=== PATIENT | male | born 1970 | race Caucasian/White ===

== ENCOUNTER 2019-03-16 09:56 | Inpatient (IN) | payer OTHER ==
[2019-03-16 10:53] VITALS: BMI 22.1
--- NOTE | 2019-03-16 11:10 | HP ---
CIWA Score Nausea/Vomitin Muscle Tremors: 2 Anxiety: 2 Agitation: 2 Paroxysmal Sweats: 1-Minimal Palms Moist Orientation: 0-Oriented Tacttile Disturbances: 1-Very Mild Itch/Numbness Auditory Disturbances: 1-Very Mild Visual Disturbances: 0-None Headache: 2-Mild CIWA-Ar Total Score: 13 - Admission Criteria OASAS Guidelines: Admission for Medically Managed Detox: Requires at least one of the followin. CIWA greater than 12 2. Seizures within the past 24 hours 3. Delirium tremens within the past 24 hours 4. Hallucinations within the past 24 hours 5. Acute intervention needed for co occurring medical disorder 6. Acute intervention needed for co occurring psychiatric disorder 7. Severe withdrawal that cannot be handled at a lower level of care (continued vomiting, continued diarrhea, abnormal vital signs) requiring intravenous medication and/or fluids 8. Admission ROS BHS - HPI Chief Complaint: i need help to stop drinling alcohol,cocaine,heroin abused,on mmtp 70 mgs/day, last medicated today Allergies/Adverse Reactions: Allergies Allergy/AdvReac Type Severity Reaction Status Date / Time No Known Allergies Allergy Verified 03/16/19 10:12 History of Present Illness: this 48 years old male with alcohol,cocaine and heroin abused,mmtp 70 mgs/day, last medicated today, syncope alcohol related last detox 12/17 ,did not recall the facility but keep relapsing hypertension nicotine dependence 1 pack,requesting nicotine patch and gum longest sobriety 10 years plan to return to [facility] after detox also has asthma asthma,chf,cad,hypercholesterolemia - Ebola screening Have you traveled outside of the country in the last 21 days: No Have you had contact with anyone from an Ebola affected area: No Do you have a fever: No - Review of Systems Constitutional: Loss of Appetite, Malaise, Night Sweats, Changes in sleep, Weakness EENT: reports: Nose Congestion Respiratory: reports: No Symptoms reported Cardiac: reports: No Symptoms Reported GI: reports: Nausea, Poor Appetite, Abdominal cramping : reports: No Symptoms Reported Musculoskeletal: reports: Back Pain, Muscle Pain Integumentary: reports: Dryness Neuro: reports: Headache, Tremors Endocrine: reports: No Symptoms Reported Hematology: reports: No Symptoms Reported Psychiatric: reports: No Sypmtoms Reported, Judgement Intact, Mood/Affect Appropiate, Orientated x3 Other Systems: Reviewed and Negative Patient History - Patient Medical History Hx Anemia: No Hx Asthma: Yes (on albuterol inhaler) Hx Chronic Obstructive Pulmonary Disease (COPD): No Hx Cancer: No Hx Cardiac Disorders: No Hx Congestive Heart Failure: Yes (cad) Hx Hypertension: Yes (on med) Hx Hypercholesterolemia: Yes (on med) Hx Pacemaker: No HX Cerebrovascular Accident: No Hx Seizures: No Hx Dementia: No Hx Diabetes: No Hx Gastrointestinal Disorders: No Hx Liver Disease: No Hx Genitourinary Disorders: No Hx Sexually Transmitted Disorders: No Hx Renal Disease (ESRD): No Hx Thyroid Disease: No Hx Human Immunodeficiency Virus (HIV): No (last 03/17 negtive) Hx Hepatitis C: No Hx Depression: No Hx Suicide Attempt: No Hx Bipolar Disorder: No Hx Schizophrenia: No Other Medical History: no suicidal,no homicidal - Patient Surgical History Past Surgical History: No - PPD History Previous Implant?: Yes Documented Results: Negative w/o proof Implanted On Prior [facility] Admission?: No PPD to be Administered?: Yes - Smoking Cessation Smoking history: Current every day smoker Have you smoked in the past 12 months: Yes Aproximately how many cigarettes per day: 10 Cigars Per Day: 0 Hx Chewing Tobacco Use: No Initiated information on smoking cessation: Yes 'Breaking Loose' booklet given: 03/16/19 - Substance & Tx. History Hx Alcohol Use: Yes Hx Substance Use: Yes Substance Use Type: Alcohol, Cocaine, Heroin Hx Substance Use Treatment: Yes (12/17 unknown facility) - Substances abused Alcohol Frequency: Daily Amount used: 2 pints of vodka Age of first use: 14 Date of last use: 03/15/19 Crack Substance route: Smoking Frequency: Daily Amount used: $200 Age of first use: 14 Date of last use: 03/15/19 Heroin Substance route: Inhalation Frequency: Daily Amount used: $200 Age of first use: 14 Date of last use: 03/15/19 Family Disease History - Family Disease History Family Disease History: Other: Father (dsa,alcohol) Admission Physical Exam BHS - Vital Signs Vital Signs: Vital Signs - 24 hr 03/16/19 10:29 Temperature 97 F L Pulse Rate 60 Respiratory 18 Rate Blood Pressure 134/81 - Physical General Appearance: Yes: Moderate Distress, Tremorous, Irritable, Sweating, Anxious HEENTM: Yes: Normal ENT Inspection, KANU, Pharynx Normal Respiratory: Yes: Lungs Clear, Normal Breath Sounds, No Respiratory Distress Neck: Yes: Within Normal Limits, Supple, Trachea in good position Breast: Yes: Within Normal Limits Cardiology: Yes: Within Normal Limits, Regular Rhythm, Regular Rate, S1, S2 Abdominal: Yes: Normal Bowel Sounds, Non Tender, Flat, Soft Genitourinary: Yes: Within Normal Limits Back: Yes: Muscle Spasm Extremities: Yes: Within Normal Limits, Normal Range of Motion, Tremors Neurological: Yes: utility [employer] II-XII NML intact, Fully Oriented, Alert, Motor Strength 5/5 Integumentary: Yes: Dry Lymphatic: Yes: Within Normal Limits - Diagnostic (1) Alcohol dependence with uncomplicated withdrawal Current Visit: Yes Status: Acute (2) Cocaine dependence Current Visit: Yes Status: Acute (3) Heroin abuse Current Visit: Yes Status: Acute (4) Methadone maintenance therapy patient Current Visit: Yes Status: Acute (5) Nicotine dependence Current Visit: Yes Status: Acute (6) Essential hypertension Current Visit: Yes Status: Acute (7) Syncope Current Visit: Yes Status: Acute Cleared for Admission S - Detox or Rehab [facility] Level of Care: Medically Managed Detox Regimen/Protocol: Librium Breathalyzer - Breathalyzer Breathalyzer: 0 Urine Drug Screen - Test Device Lot number: [id number] Expiration date: 02/26/20 - Control Is test valid?: Yes - Results Drug screen NEGATIVE: No Urine drug screen results: PRATIMA-Cocaine, MOP-Opiates, MTD-Methadone Inpatient Rehab Admission - Rehab Decision to Admit Inpatient rehab admission?: No
[2019-03-16] MEDS ORDERED: chlordiazePOXIDE HCL 25 MG CAPSULE PO PRN (11:19)
[2019-03-16] MEDS ORDERED: BISMUTH SUBSALICYLATE 262 MG/15 ML BTL PO PRN (11:19)
[2019-03-16] MEDS ORDERED: hydrOXYzine PAMOATE 25 MG CAPSULE (FP) PO PRN (11:19)
[2019-03-16] MEDS ORDERED: ACETAMINOPHEN 325 MG TABLET (FP) PO PRN ×2 (11:19)
[2019-03-16] MEDS ORDERED: IBUPROFEN 400 MG TABLET (FP) PO PRN (11:19)
[2019-03-16] MEDS ORDERED: MAGNESIUM HYDROX 2400MG/30ML ORAL SUSPENSION 30 ML CUP PO PRN (11:19)
[2019-03-16] MEDS ORDERED: METHOCARBAMOL 500 MG TABLET PO PRN (11:19)
[2019-03-16] MEDS ORDERED: NICOTINE POLACRILEX 2 MG GUM BUC PRN (11:19)
[2019-03-16] MEDS ORDERED: MAG HYDROX/AL HYDROX/SIMETH 30 ML UNIT-DOSE CUP PO PRN (11:19)
[2019-03-16] MEDS ORDERED: MENTHOL/PHENOL 1 EACH UD MM PRN (11:19)
[2019-03-16] MEDS ORDERED: MAGNESIUM CITRATE 300 ML BOTTLE PO PRN (11:19)
[2019-03-16] MEDS ORDERED: ALBUTEROL SO4 8 GM HFA INHALER IH PRN (11:23)
[2019-03-16] MEDS: NICOTINE 21 MG/24 HOURS TOPICAL PATCH TD SCH (12:33)
[2019-03-16] MEDS: FUROSEMIDE 40 MG TABLET (FP) PO SCH (15:20)
[2019-03-16 16:33] LABS: HEMATOCRIT 47.5 % (35.4-49); HEMOGLOBIN 15.3 GM/dL (11.7-16.9); MCH 30.2 pg (25.7-33.7); MCHC 32.1 g/dl (32.0-35.9); MEAN CELL VOLUME 94.1 fl (80-96); MEAN PLT VOLUME 10.1 fl (7.5-11.1); PLATELET COUNT 248 K/MM3 (134-434); RBC 5.05 M/mm3 (4.00-5.60); RDW 15.1 % (11.9-15.9); WHITE BLOOD COUNT 10.8 K/mm3 (4.0-10.0)
[2019-03-16 16:50] LABS: ALBUMIN 3.5 g/dl (3.4-5.0); ALK PHOS 161 U/L (45-117); ANION GAP 6 MMOL/L (8-16); BILIRUBIN,TOTAL 0.3 mg/dL (0.2-1); BLOOD UREA NITROGEN 29 mg/dL (7-18); CALCIUM 9.5 mg/dL (8.5-10.1); CHLORIDE 100 mmol/L (98-107); CO2 34 mmol/L (21-32); CREATININE 1.3 mg/dL (0.55-1.3); GLUCOSE,RANDOM 187 mg/dL (74-106); POTASSIUM 3.3 mmol/L (3.5-5.1); SGOT/AST 24 U/L (15-37); SGPT/ALT 33 U/L (13-61); SODIUM 140 mmol/L (136-145); TOT PROT 7.2 g/dl (6.4-8.2)
[2019-03-16 17:13] LABS: URINE APPEARANCE CLEAR; URINE BILIRUBIN NEGATIVE (NEGATIVE); URINE COLOR YELLOW; URINE GLUCOSE (UA) NEGATIVE (NEGATIVE); URINE KETONE NEGATIVE (NEGATIVE); URINE LEUK ESTERASE NEGATIVE (NEGATIVE); URINE NITRITE NEGATIVE (NEGATIVE); URINE PROTEIN NEGATIVE (NEGATIVE); URINE UROBILINOGEN 0.2 mg/dL (0.2-1.0)
[2019-03-16 17:19] LABS: SICKLE CELL SCREEN NEGATIVE (NEGATIVE)
--- NOTE | 2019-03-16 17:33 | PN ---
[facility] Progress Note Note: Vital Signs Temperature 98.1 F 03/16/19 17:13 Pulse Rate 57 L 03/16/19 17:13 Respiratory Rate 18 03/16/19 17:13 Blood Pressure 147/56 L 03/16/19 17:13 O2 Sat by Pulse Oximetry (%) Laboratory Last Values WBC 10.8 K/mm3 (4.0-10.0) H 03/16/19 11:30 RBC 5.05 M/mm3 (4.00-5.60) 03/16/19 11:30 Hgb 15.3 GM/dL (11.7-16.9) 03/16/19 11:30 Hct 47.5 % (35.4-49) 03/16/19 11:30 MCV 94.1 fl (80-96) 03/16/19 11:30 MCH 30.2 pg (25.7-33.7) 03/16/19 11:30 MCHC 32.1 g/dl (32.0-35.9) 03/16/19 11:30 RDW 15.1 % (11.9-15.9) 03/16/19 11:30 Plt Count 248 K/MM3 (134-434) 03/16/19 11:30 MPV 10.1 fl (7.5-11.1) 03/16/19 11:30 Sickle Cell Screen Negative (NEGATIVE) 03/16/19 11:30 Sodium 140 mmol/L (136-145) 03/16/19 11:30 Potassium 3.3 mmol/L (3.5-5.1) L 03/16/19 11:30 Chloride 100 mmol/L (98-107) 03/16/19 11:30 Carbon Dioxide 34 mmol/L (21-32) H 03/16/19 11:30 Anion Gap 6 MMOL/L (8-16) L 03/16/19 11:30 BUN 29 mg/dL (7-18) H 03/16/19 11:30 Creatinine 1.3 mg/dL (0.55-1.3) 03/16/19 11:30 Creat Clearance w eGFR 58.67 (>60) 03/16/19 11:30 Random Glucose 187 mg/dL (74-106) H 03/16/19 11:30 Calcium 9.5 mg/dL (8.5-10.1) 03/16/19 11:30 Total Bilirubin 0.3 mg/dL (0.2-1) 03/16/19 11:30 AST 24 U/L (15-37) 03/16/19 11:30 ALT 33 U/L (13-61) 03/16/19 11:30 Alkaline Phosphatase 161 U/L (45-117) H 03/16/19 11:30 Total Protein 7.2 g/dl (6.4-8.2) 03/16/19 11:30 Albumin 3.5 g/dl (3.4-5.0) 03/16/19 11:30 Urine Color Yellow 03/16/19 12:54 Urine Appearance Clear 03/16/19 12:54 Urine pH 5.0 (5.0-8.0) 03/16/19 12:54 Ur Specific [place] 1.011 (1.010-1.035) 03/16/19 12:54 Urine Protein Negative (NEGATIVE) 03/16/19 12:54 Urine Glucose (UA) Negative (NEGATIVE) 03/16/19 12:54 Urine Ketones Negative (NEGATIVE) 03/16/19 12:54 Urine Blood Negative (NEGATIVE) 03/16/19 12:54 Urine Nitrite Negative (NEGATIVE) 03/16/19 12:54 Urine Bilirubin Negative (NEGATIVE) 03/16/19 12:54 Urine Urobilinogen 0.2 mg/dL (0.2-1.0) 03/16/19 12:54 Ur Leukocyte Esterase Negative (NEGATIVE) 03/16/19 12:54 hypokelemia K+ 20 mq now repeat K+ in am
[2019-03-16] MEDS ORDERED: POTASSIUM CHLORIDE TABS 20 MEQ TABLET.ER (FP) PO ONE (17:45)
[2019-03-16] MEDS: chlordiazePOXIDE HCL 25 MG CAPSULE PO SCH ×2 (18:46→22:25)
[2019-03-16] MEDS: CARVEDILOL 12.5 MG TABLET (FP) PO SCH (22:25)
[2019-03-16] MEDS: THIAMINE HCL 100 MG TABLET (FP) PO SCH (22:25)
[2019-03-16] MEDS: ATORVASTATIN CA 40 MG TABLET (FP) PO SCH (22:25)
[2019-03-17] MEDS ORDERED: METHADONE HCL 40 MG DISPERSABLE TABLET ONE (04:30)
[2019-03-17] MEDS ORDERED: METHADONE HCL 10 MG TABLET ONE (04:30)
[2019-03-17] MEDS ORDERED: METHADONE HCL 10 MG TABLET PO SCH (06:00)
[2019-03-17] MEDS: METHADONE 40 MG, METHADONE 30 MG PO SCH (06:33)
[2019-03-17] MEDS: chlordiazePOXIDE HCL 25 MG CAPSULE PO SCH ×4 (06:34→22:35)
[2019-03-17] MEDS: FUROSEMIDE 40 MG TABLET (FP) PO SCH ×2 (06:35→13:24)
[2019-03-17] MEDS: NICOTINE 21 MG/24 HOURS TOPICAL PATCH TD SCH (10:58)
[2019-03-17] MEDS: CARVEDILOL 12.5 MG TABLET (FP) PO SCH ×2 (10:58→22:35)
[2019-03-17] MEDS: LISINOPRIL 20 MG TABLET (FP) PO SCH (10:58)
[2019-03-17] MEDS: ASPIRIN 81 MG CHEWABLE TABLETS PO SCH (10:58)
[2019-03-17] MEDS: PRENATAL VITAMINS W/ FOLIC ACID TABLET (FP) PO SCH (10:59)
[2019-03-17] MEDS: POTASSIUM CHLORIDE TABS 20 MEQ TABLET.ER (FP) PO SCH (12:57)
--- NOTE | 2019-03-17 15:08 | PN ---
S CIWA - CIWA Score Nausea/Vomitin-No Nausea/No Vomiting Muscle Tremors: 1-None Visible, but [place] Anxiety: 1-Mildly Anxious Agitation: 1-Slight > Activity Paroxysmal Sweats: No Perspiration Orientation: 0-Oriented Tacttile Disturbances: 0-None Auditory Disturbances: 0-None Visual Disturbances: 0-None Headache: 0-None Present CIWA-Ar Total Score: 3 BHS Progress Note (SOAP) Subjective: pt doing well on alcohol detox protocol, pt on MAT methadone O: Vital Signs - 24 hr 03/16/19 03/16/19 03/17/19 17:13 21:26 00:30 Temperature 98.1 F 98.2 F Pulse Rate 57 L 71 Respiratory 18 18 18 Rate Blood Pressure 147/56 L 148/73 03/17/19 03/17/19 03/17/19 03:30 06:00 11:16 Temperature 97.0 F L 98.1 F Pulse Rate 59 L 56 L Respiratory 18 18 20 Rate Blood Pressure 152/71 131/65 03/17/19 14:50 Temperature 98.1 F Pulse Rate 60 Respiratory 20 Rate Blood Pressure 133/67 Laboratory Tests 03/16/19 03/16/19 03/16/19 11:20 11:30 11:30 WBC 10.8 H RBC 5.05 Hgb 15.3 Hct 47.5 MCV 94.1 MCH 30.2 MCHC 32.1 RDW 15.1 Plt Count 248 MPV 10.1 Sickle Cell Screen Negative Sodium Potassium Chloride Carbon Dioxide Anion Gap BUN Creatinine Creat Clearance w eGFR Random Glucose Calcium Total Bilirubin AST ALT Alkaline Phosphatase Total Protein Albumin Urine Color Urine Appearance Urine pH Ur Specific [place] Urine Protein Urine Glucose (UA) Urine Ketones Urine Blood Urine Nitrite Urine Bilirubin Urine Urobilinogen Ur Leukocyte Esterase RPR Titer Nonreactive HIV 1&2 Antibody Screen Negative HIV P24 Antigen Negative 03/16/19 03/16/19 11:30 12:54 WBC RBC Hgb Hct MCV MCH MCHC RDW Plt Count MPV Sickle Cell Screen Sodium 140 Potassium 3.3 L Chloride 100 Carbon Dioxide 34 H Anion Gap 6 L BUN 29 H Creatinine 1.3 Creat Clearance w eGFR 58.67 Random Glucose 187 H Calcium 9.5 Total Bilirubin 0.3 AST 24 ALT 33 Alkaline Phosphatase 161 H Total Protein 7.2 Albumin 3.5 Urine Color Yellow Urine Appearance Clear Urine pH 5.0 Ur Specific [place] 1.011 Urine Protein Negative Urine Glucose (UA) Negative Urine Ketones Negative Urine Blood Negative Urine Nitrite Negative Urine Bilirubin Negative Urine Urobilinogen 0.2 Ur Leukocyte Esterase Negative RPR Titer HIV 1&2 Antibody Screen HIV P24 Antigen hypokalemia' a/p: continue alcohol detox protocol potassium replacement
[2019-03-17] MEDS: ATORVASTATIN CA 40 MG TABLET (FP) PO SCH (22:35)
[2019-03-17] MEDS: THIAMINE HCL 100 MG TABLET (FP) PO SCH (22:35)
[2019-03-18] MEDS ORDERED: METHADONE HCL 40 MG DISPERSABLE TABLET ONE (05:45)
[2019-03-18] MEDS: METHADONE 40 MG, METHADONE 30 MG PO SCH (05:45)
[2019-03-18] MEDS: chlordiazePOXIDE HCL 25 MG CAPSULE PO SCH ×2 (05:45→10:25)
[2019-03-18] MEDS ORDERED: METHADONE HCL 10 MG TABLET ONE (05:45)
[2019-03-18] MEDS: FUROSEMIDE 40 MG TABLET (FP) PO SCH ×2 (05:45→14:22)
[2019-03-18] MEDS: LISINOPRIL 20 MG TABLET (FP) PO SCH (10:30)
[2019-03-18] MEDS: CARVEDILOL 12.5 MG TABLET (FP) PO SCH ×2 (10:53→23:10)
[2019-03-18] MEDS: ASPIRIN 81 MG CHEWABLE TABLETS PO SCH (10:53)
[2019-03-18] MEDS: POTASSIUM CHLORIDE TABS 20 MEQ TABLET.ER (FP) PO SCH (10:53)
[2019-03-18] MEDS: NICOTINE 21 MG/24 HOURS TOPICAL PATCH TD SCH (10:54)
[2019-03-18] MEDS: PRENATAL VITAMINS W/ FOLIC ACID TABLET (FP) PO SCH (10:54)
--- NOTE | 2019-03-18 14:29 | EKG ---
Test Reason : Blood Pressure : / mmHG Vent. Rate : 048 BPM Atrial Rate : 048 BPM P-R Int : 148 ms QRS Dur : 104 ms QT Int : 542 ms P-R-T Axes : 039 002 205 degrees QTc Int : 484 ms SINUS BRADYCARDIA LEFT VENTRICULAR HYPERTROPHY WITH REPOLARIZATION ABNORMALITY MARKED T WAVE ABNORMALITY, CONSIDER ANTEROLATERAL ISCHEMIA PROLONGED QT ABNORMAL ECG NO PREVIOUS ECGS AVAILABLE Confirmed by MD MALATHI, DIOMEDES ([id number]) on 03/18/2019 2:29:46 PM Referred By: DR HALL Confirmed By:DIOMEDES SERVIN MD
--- NOTE | 2019-03-18 15:03 | PN ---
S CIWA - CIWA Score Nausea/Vomitin-No Nausea/No Vomiting Muscle Tremors: None Anxiety: 0-No Anxiety, at Ease Agitation: 0-Normal Activity Paroxysmal Sweats: 3 Orientation: 1-Uncertain about Date Tacttile Disturbances: 0-None Auditory Disturbances: 0-None Visual Disturbances: 0-None Headache: 2-Mild CIWA-Ar Total Score: 6 BHS Progress Note (SOAP) Subjective: sweats headache Objective: 03/18/19 15:00 Vital Signs 03/18/19 03/18/19 09:45 14:33 Temperature 98.4 F 98.2 F Pulse Rate 66 62 Respiratory 18 18 Rate Blood Pressure 148/92 136/87 Laboratory Last Values WBC 10.8 K/mm3 (4.0-10.0) H 03/16/19 11:30 RBC 5.05 M/mm3 (4.00-5.60) 03/16/19 11:30 Hgb 15.3 GM/dL (11.7-16.9) 03/16/19 11:30 Hct 47.5 % (35.4-49) 03/16/19 11:30 MCV 94.1 fl (80-96) 03/16/19 11:30 MCH 30.2 pg (25.7-33.7) 03/16/19 11:30 MCHC 32.1 g/dl (32.0-35.9) 03/16/19 11:30 RDW 15.1 % (11.9-15.9) 03/16/19 11:30 Plt Count 248 K/MM3 (134-434) 03/16/19 11:30 MPV 10.1 fl (7.5-11.1) 03/16/19 11:30 Sickle Cell Screen Negative (NEGATIVE) 03/16/19 11:30 Sodium 140 mmol/L (136-145) 03/16/19 11:30 Potassium 3.3 mmol/L (3.5-5.1) L 03/16/19 11:30 Chloride 100 mmol/L (98-107) 03/16/19 11:30 Carbon Dioxide 34 mmol/L (21-32) H 03/16/19 11:30 Anion Gap 6 MMOL/L (8-16) L 03/16/19 11:30 BUN 29 mg/dL (7-18) H 03/16/19 11:30 Creatinine 1.3 mg/dL (0.55-1.3) 03/16/19 11:30 Creat Clearance w eGFR 58.67 (>60) 03/16/19 11:30 Random Glucose 187 mg/dL (74-106) H 03/16/19 11:30 Calcium 9.5 mg/dL (8.5-10.1) 03/16/19 11:30 Total Bilirubin 0.3 mg/dL (0.2-1) 03/16/19 11:30 AST 24 U/L (15-37) 03/16/19 11:30 ALT 33 U/L (13-61) 03/16/19 11:30 Alkaline Phosphatase 161 U/L (45-117) H 03/16/19 11:30 Total Protein 7.2 g/dl (6.4-8.2) 03/16/19 11:30 Albumin 3.5 g/dl (3.4-5.0) 03/16/19 11:30 Urine Color Yellow 03/16/19 12:54 Urine Appearance Clear 03/16/19 12:54 Urine pH 5.0 (5.0-8.0) 03/16/19 12:54 Ur Specific [place] 1.011 (1.010-1.035) 03/16/19 12:54 Urine Protein Negative (NEGATIVE) 03/16/19 12:54 Urine Glucose (UA) Negative (NEGATIVE) 03/16/19 12:54 Urine Ketones Negative (NEGATIVE) 03/16/19 12:54 Urine Blood Negative (NEGATIVE) 03/16/19 12:54 Urine Nitrite Negative (NEGATIVE) 03/16/19 12:54 Urine Bilirubin Negative (NEGATIVE) 03/16/19 12:54 Urine Urobilinogen 0.2 mg/dL (0.2-1.0) 03/16/19 12:54 Ur Leukocyte Esterase Negative (NEGATIVE) 03/16/19 12:54 RPR Titer Nonreactive (NONREACTIVE) 03/16/19 11:30 HIV 1&2 Antibody Screen Negative 03/16/19 11:20 HIV P24 Antigen Negative 03/16/19 11:20 labs reviewed Assessment: 03/18/19 15:00 AOX3, no distress full rom, ambulating in the unit Plan: continue detox increase fluids continue detox
[2019-03-18] MEDS ORDERED: chlordiazePOXIDE HCL 10 MG CAPSULE PO PRN (17:00)
[2019-03-18] MEDS: chlordiazePOXIDE HCL 10 MG CAPSULE PO SCH ×2 (17:36→23:10)
[2019-03-18] MEDS: THIAMINE HCL 100 MG TABLET (FP) PO SCH (23:10)
[2019-03-18] MEDS: MELATONIN 5 MG TABLETS PO PRN (23:10)
[2019-03-18] MEDS: ATORVASTATIN CA 40 MG TABLET (FP) PO SCH (23:10)
[2019-03-19] MEDS ORDERED: METHADONE HCL 40 MG DISPERSABLE TABLET ONE (04:35)
[2019-03-19] MEDS ORDERED: METHADONE HCL 10 MG TABLET ONE (04:35)
[2019-03-19] MEDS: chlordiazePOXIDE HCL 10 MG CAPSULE PO SCH ×3 (05:16→17:50)
[2019-03-19] MEDS: METHADONE 40 MG, METHADONE 30 MG PO SCH (05:16)
[2019-03-19] MEDS: FUROSEMIDE 40 MG TABLET (FP) PO SCH ×2 (07:23→13:47)
[2019-03-19] MEDS: LISINOPRIL 20 MG TABLET (FP) PO SCH (10:30)
[2019-03-19] MEDS: POTASSIUM CHLORIDE TABS 20 MEQ TABLET.ER (FP) PO SCH (10:30)
[2019-03-19] MEDS: CARVEDILOL 12.5 MG TABLET (FP) PO SCH ×2 (10:30→22:27)
[2019-03-19] MEDS: PRENATAL VITAMINS W/ FOLIC ACID TABLET (FP) PO SCH (10:30)
[2019-03-19] MEDS: ASPIRIN 81 MG CHEWABLE TABLETS PO SCH (10:30)
[2019-03-19] MEDS: NICOTINE 21 MG/24 HOURS TOPICAL PATCH TD SCH (11:00)
--- NOTE | 2019-03-19 14:11 | PN ---
[facility] CIWA - CIWA Score Nausea/Vomitin-No Nausea/No Vomiting Muscle Tremors: 2 Anxiety: 2 Agitation: 1-Slight > Activity Paroxysmal Sweats: 2 Orientation: 0-Oriented Tacttile Disturbances: 0-None Auditory Disturbances: 0-None Visual Disturbances: 0-None Headache: 0-None Present CIWA-Ar Total Score: 7 BHS Progress Note (SOAP) Subjective: Denies withdrawal symptoms stating medication working well. Patient appears anxious and restless. Objective: 03/19/19 14:07 Last Vital Signs Temp Pulse Resp BP Pulse Ox 98.2 F 52 L 18 149/78 03/19/19 10:17 03/19/19 10:17 03/19/19 10:17 03/19/19 10:17 Laboratory Tests 03/16/19 03/16/19 03/16/19 11:20 11:30 11:30 WBC 10.8 H RBC 5.05 Hgb 15.3 Hct 47.5 MCV 94.1 MCH 30.2 MCHC 32.1 RDW 15.1 Plt Count 248 MPV 10.1 Sickle Cell Screen Negative Sodium Potassium Chloride Carbon Dioxide Anion Gap BUN Creatinine Creat Clearance w eGFR Random Glucose Calcium Total Bilirubin AST ALT Alkaline Phosphatase Total Protein Albumin Urine Color Urine Appearance Urine pH Ur Specific [place] Urine Protein Urine Glucose (UA) Urine Ketones Urine Blood Urine Nitrite Urine Bilirubin Urine Urobilinogen Ur Leukocyte Esterase RPR Titer Nonreactive HIV 1&2 Antibody Screen Negative HIV P24 Antigen Negative 03/16/19 03/16/19 11:30 12:54 WBC RBC Hgb Hct MCV MCH MCHC RDW Plt Count MPV Sickle Cell Screen Sodium 140 Potassium 3.3 L Chloride 100 Carbon Dioxide 34 H Anion Gap 6 L BUN 29 H Creatinine 1.3 Creat Clearance w eGFR 58.67 Random Glucose 187 H Calcium 9.5 Total Bilirubin 0.3 AST 24 ALT 33 Alkaline Phosphatase 161 H Total Protein 7.2 Albumin 3.5 Urine Color Yellow Urine Appearance Clear Urine pH 5.0 Ur Specific [place] 1.011 Urine Protein Negative Urine Glucose (UA) Negative Urine Ketones Negative Urine Blood Negative Urine Nitrite Negative Urine Bilirubin Negative Urine Urobilinogen 0.2 Ur Leukocyte Esterase Negative RPR Titer HIV 1&2 Antibody Screen HIV P24 Antigen Labs reviewed: K 3.3, bun 29, prerenal azotemia, alk phos 161, serum glucose 187 Assessment: 03/19/19 14:10 Withdrawal symptoms Noted with hypokalemia, prerenal azotemia and elevated alkaline phosphatase and hyperglycemia Plan: Continue detox Hypokalemia:continue KDUR 20 MEq PO daily send serum K level in AM Prerenal azotemia: encouraged PO water hydration, repeat BMP Elevated alkaline phosphatase: most likely due to alcoholism, repeat alk phosphatase level Hyperglycemia: asymptomatic, could be r/t withdrawal, repeat fasting glucose level
[2019-03-19] MEDS: ATORVASTATIN CA 40 MG TABLET (FP) PO SCH (22:27)
[2019-03-19] MEDS: THIAMINE HCL 100 MG TABLET (FP) PO SCH (22:27)
[2019-03-19] MEDS: MELATONIN 5 MG TABLETS PO PRN (22:27)
[2019-03-20] MEDS ORDERED: METHADONE HCL 10 MG TABLET ONE (04:08)
[2019-03-20] MEDS ORDERED: METHADONE HCL 40 MG DISPERSABLE TABLET ONE (04:08)
[2019-03-20] MEDS: METHADONE 40 MG, METHADONE 30 MG PO SCH (05:49)
[2019-03-20] MEDS: chlordiazePOXIDE HCL 10 MG CAPSULE PO SCH ×2 (05:50→17:42)
[2019-03-20] MEDS: FUROSEMIDE 40 MG TABLET (FP) PO SCH ×2 (05:50→12:05)
[2019-03-20 09:56] LABS: ALK PHOS 111 U/L (45-117); ANION GAP 7 MMOL/L (8-16); BLOOD UREA NITROGEN 22 mg/dL (7-18); CALCIUM 8.8 mg/dL (8.5-10.1); CHLORIDE 104 mmol/L (98-107); CO2 33 mmol/L (21-32); CREATININE 0.8 mg/dL (0.55-1.3); GLUCOSE,RANDOM 86 mg/dL (74-106); POTASSIUM 3.7 mmol/L (3.5-5.1); SODIUM 144 mmol/L (136-145)
[2019-03-20] MEDS: ASPIRIN 81 MG CHEWABLE TABLETS PO SCH (10:00)
[2019-03-20] MEDS: LISINOPRIL 20 MG TABLET (FP) PO SCH (10:00)
[2019-03-20] MEDS: POTASSIUM CHLORIDE TABS 20 MEQ TABLET.ER (FP) PO SCH (10:00)
[2019-03-20] MEDS: PRENATAL VITAMINS W/ FOLIC ACID TABLET (FP) PO SCH (10:00)
[2019-03-20] MEDS: NICOTINE 21 MG/24 HOURS TOPICAL PATCH TD SCH (10:00)
[2019-03-20] MEDS: CARVEDILOL 12.5 MG TABLET (FP) PO SCH ×2 (10:01→22:28)
--- NOTE | 2019-03-20 11:36 | DS ---
[facility] Detox Discharge Summary Admission Date: 03/16/19 Discharge Date: 03/20/19 - History Present History: Alcohol Dependence, Cocaine Dependence, Opioid Dependence, MMTP - Physical Exam Results Vital Signs: Vital Signs Temperature 98.2 F 03/20/19 10:35 Pulse Rate 55 L 03/20/19 10:35 Respiratory Rate 18 03/20/19 10:35 Blood Pressure 163/68 03/20/19 10:35 O2 Sat by Pulse Oximetry (%) - Treatment Hospital Course: Detox Protocol Followed, Detoxed Safely, Responded well, Discharged Condition Good, Rehab Referral Accepted - Medication Discharge Medications: Ambulatory Orders Acetaminophen [Arthritis Pain Relief] 650 mg PO PRN 03/16/19 Albuterol Sulfate Inhaler - [Ventolin Hfa Inhaler -] 2 inh PO Q4H PRN 03/16/19 Aspirin 81 mg PO DAILY 03/16/19 Atorvastatin Ca [Lipitor] 40 mg PO HS 03/16/19 Carvedilol [Coreg -] 12.5 mg PO BID 03/16/19 Furosemide [Lasix -] 40 mg PO BID 03/16/19 Lisinopril [Zestril] 40 mg PO DAILY 03/16/19 - Diagnosis (1) Alcohol dependence with uncomplicated withdrawal Current Visit: Yes Status: Chronic (2) Cocaine dependence Current Visit: Yes Status: Chronic Qualifiers: Substance use status: uncomplicated Qualified Code(s): F14.20 - Cocaine dependence, uncomplicated (3) Essential hypertension Current Visit: Yes Status: Chronic (4) Heroin abuse Current Visit: Yes Status: Chronic (5) Methadone maintenance therapy patient Current Visit: Yes Status: Chronic (6) Nicotine dependence Current Visit: Yes Status: Chronic Qualifiers: Nicotine product type: cigarettes - AMA Did Patient Leave Against Medical Advice: No
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
[2019-03-20] MEDS: THIAMINE HCL 100 MG TABLET (FP) PO SCH (22:28)
[2019-03-20] MEDS: ATORVASTATIN CA 40 MG TABLET (FP) PO SCH (22:28)
[2019-03-20] MEDS: MELATONIN 5 MG TABLETS PO PRN (22:29)
[2019-03-21] MEDS ORDERED: METHADONE HCL 10 MG TABLET ONE (04:40)
[2019-03-21] MEDS ORDERED: METHADONE HCL 40 MG DISPERSABLE TABLET ONE (04:41)
[2019-03-21] MEDS: METHADONE 40 MG, METHADONE 30 MG PO SCH (05:43)
[2019-03-21] MEDS: FUROSEMIDE 40 MG TABLET (FP) PO SCH ×2 (05:43→13:40)
--- NOTE | 2019-03-21 08:57 | DS ---
[facility] Detox Discharge Summary Admission Date: 03/16/19 Discharge Date: 03/21/19 - History Present History: Alcohol Dependence, MMTP - Physical Exam Results Vital Signs: Vital Signs Temperature 98.2 F 03/21/19 06:34 Pulse Rate 59 L 03/21/19 06:34 Respiratory Rate 18 03/21/19 06:34 Blood Pressure 144/73 03/21/19 06:34 O2 Sat by Pulse Oximetry (%) - Treatment Hospital Course: Detox Protocol Followed, Detoxed Safely, Responded well, Discharged Condition Good, Rehab Referral Accepted - Medication Discharge Medications: Ambulatory Orders Acetaminophen [Arthritis Pain Relief] 650 mg PO PRN 03/16/19 Albuterol Sulfate Inhaler - [Ventolin Hfa Inhaler -] 2 inh PO Q4H PRN 03/16/19 Aspirin 81 mg PO DAILY 03/16/19 Atorvastatin Ca [Lipitor] 40 mg PO HS 03/16/19 Carvedilol [Coreg -] 12.5 mg PO BID 03/16/19 Furosemide [Lasix -] 40 mg PO BID 03/16/19 Lisinopril [Zestril] 40 mg PO DAILY 03/16/19 - Diagnosis (1) Alcohol dependence with uncomplicated withdrawal Current Visit: Yes Status: Chronic (2) Cocaine dependence Current Visit: Yes Status: Chronic Qualifiers: Substance use status: uncomplicated Qualified Code(s): F14.20 - Cocaine dependence, uncomplicated (3) Essential hypertension Current Visit: Yes Status: Chronic (4) Methadone maintenance therapy patient Current Visit: Yes Status: Chronic (5) Nicotine dependence Current Visit: Yes Status: Chronic Qualifiers: Nicotine product type: cigarettes Substance use status: uncomplicated Qualified Code(s): F17.210 - Nicotine dependence, cigarettes, uncomplicated - AMA Did Patient Leave Against Medical Advice: No (referred to rehab [facility])
[2019-03-21] MEDS: POTASSIUM CHLORIDE TABS 20 MEQ TABLET.ER (FP) PO SCH (10:10)
[2019-03-21] MEDS: ASPIRIN 81 MG CHEWABLE TABLETS PO SCH (10:10)
[2019-03-21] MEDS: LISINOPRIL 20 MG TABLET (FP) PO SCH (10:10)
[2019-03-21] MEDS: NICOTINE 21 MG/24 HOURS TOPICAL PATCH TD SCH (10:10)
[2019-03-21] MEDS: PRENATAL VITAMINS W/ FOLIC ACID TABLET (FP) PO SCH (10:10)
[2019-03-21 10:53] VITALS: TEMP 97.9
[2019-03-21] MEDS: CARVEDILOL 12.5 MG TABLET (FP) PO SCH (11:09)
[2019-03-21 13:09] VITALS: BP 153/67; PULSE 53
[2019-03-21] MEDS ORDERED: DOCUSATE SODIUM 100 MG CAPSULE (FP) PO SCH (14:00)
[2019-03-21] MEDS ORDERED: HYDROCORTISONE 2.5% TOPICAL CREAM 30 GM TUBE TP SCH (22:00)
== END 2019-03-21 14:18 | disposition other institution (70) | DRG 773 ==
LOC: YASAS 09:56 → Y6N 12:00
PROVIDERS: ADMIT Surgery; ATTEND Surgery
PROC: HZ2ZZZZ Detoxification Services for Substance Abuse Treatment (ICD-10-PCS; principal; 2019-03-16)
DX: F10.230 Alcohol dependence with withdrawal, uncomplicated (principal); F11.20 Opioid dependence, uncomplicated; F14.20 Cocaine dependence, uncomplicated; F17.210 Nicotine dependence, cigarettes, uncomplicated; I10 Essential (primary) hypertension; E87.6 Hypokalemia; I25.10 Atherosclerotic heart disease of native coronary artery without angina pectoris; E78.00 Pure hypercholesterolemia, unspecified; R79.89 Other specified abnormal findings of blood chemistry; R73.9 Hyperglycemia, unspecified; R74.8 Abnormal levels of other serum enzymes; J45.909 Unspecified asthma, uncomplicated
CPT/HCPCS: 36415; 80048; 80053; 81003; 84075; 85027; 85660; 86593; 87389; 93005; 93010

== ENCOUNTER 2019-03-21 14:43 | Inpatient (IN) | payer OTHER ==
[2019-03-21] MEDS ORDERED: guaiFENesin 200 MG/10 ML 10 ML UNIT-DOSE CUPS PO PRN (15:47)
[2019-03-21] MEDS ORDERED: LOPERAMIDE HCL 2 MG CAPSULE PO PRN (15:47)
[2019-03-21] MEDS ORDERED: ACETAMINOPHEN 325 MG TABLET (FP) PO PRN (15:47)
[2019-03-21] MEDS ORDERED: IBUPROFEN 400 MG TABLET (FP) PO PRN (15:47)
[2019-03-21] MEDS ORDERED: MAGNESIUM HYDROX 2400MG/30ML ORAL SUSPENSION 30 ML CUP PO PRN (15:47)
[2019-03-21] MEDS ORDERED: MAGNESIUM CITRATE 300 ML BOTTLE PO PRN (15:47)
[2019-03-21] MEDS ORDERED: P-EPHED 60MG/TRIPROLIDI 2.5MG TABLET PO PRN (15:47)
[2019-03-21] MEDS ORDERED: MAG HYDROX/AL HYDROX/SIMETH 30 ML UNIT-DOSE CUP PO PRN (15:47)
[2019-03-21] MEDS ORDERED: MENTHOL/PHENOL 1 EACH UD MM PRN (15:47)
--- NOTE | 2019-03-21 15:47 | HP ---
[facility] Rehab Assess/Revision - Admission History Admitted to Rehab from: Manjit Gipson Date of Admission to Rehab: 03/21/19 - Findings Detox History & Physical reviewed: Yes Concur with findings: Yes Inpatient Rehab Admission - Rehab Decision to Admit Inpatient rehab admission?: Yes - Initial Determination Are CD services needed?: Yes Free of communicable disease: Yes Not in need of hospitalization: Yes - Rehab Admission Criteria Previous failed treatment: Yes Poor recovery environment: Yes Comorbidities: Yes Lacks judgement: Yes Patient is meeting Inpatient Rehab admission criteria:: Yes
[2019-03-21] MEDS: THIAMINE HCL 100 MG TABLET (FP) PO SCH (21:30)
[2019-03-21] MEDS: FUROSEMIDE 40 MG TABLET (FP) PO SCH (21:30)
[2019-03-21] MEDS: DOCUSATE SODIUM 100 MG CAPSULE (FP) PO SCH (21:30)
[2019-03-21] MEDS: ATORVASTATIN CA 40 MG TABLET (FP) PO SCH (21:30)
[2019-03-21] MEDS: CARVEDILOL 12.5 MG TABLET (FP) PO SCH (21:30)
[2019-03-21] MEDS: MELATONIN 5 MG TABLETS PO PRN (21:31)
[2019-03-21] MEDS: HYDROCORTISONE 2.5% TOPICAL CREAM 30 GM TUBE TP SCH (21:32)
[2019-03-22] MEDS ORDERED: METHADONE HCL 40 MG DISPERSABLE TABLET PO SCH (06:00)
[2019-03-22] MEDS ORDERED: METHADONE HCL 10 MG TABLET ONE (06:18)
[2019-03-22] MEDS: METHADONE 40 MG, METHADONE 30 MG PO SCH (06:18)
[2019-03-22] MEDS ORDERED: METHADONE HCL 40 MG DISPERSABLE TABLET ONE (06:18)
[2019-03-22] MEDS: DOCUSATE SODIUM 100 MG CAPSULE (FP) PO SCH ×3 (06:19→21:25)
[2019-03-22] MEDS: LISINOPRIL 20 MG TABLET (FP) PO SCH (09:46)
[2019-03-22] MEDS: HYDROCORTISONE 2.5% TOPICAL CREAM 30 GM TUBE TP SCH ×2 (09:47→21:29)
[2019-03-22] MEDS: FUROSEMIDE 40 MG TABLET (FP) PO SCH ×2 (09:47→21:28)
[2019-03-22] MEDS: CARVEDILOL 12.5 MG TABLET (FP) PO SCH ×2 (09:47→21:28)
[2019-03-22] MEDS: ASPIRIN 81 MG CHEWABLE TABLETS PO SCH (09:47)
[2019-03-22] MEDS: PRENATAL VITAMINS W/ FOLIC ACID TABLET (FP) PO SCH (09:47)
[2019-03-22] MEDS: NICOTINE 21 MG/24 HOURS TOPICAL PATCH TD SCH (09:47)
[2019-03-22] MEDS: ATORVASTATIN CA 40 MG TABLET (FP) PO SCH (21:25)
[2019-03-22] MEDS: THIAMINE HCL 100 MG TABLET (FP) PO SCH (21:25)
[2019-03-22] MEDS: MELATONIN 5 MG TABLETS PO PRN (21:29)
[2019-03-23] MEDS ORDERED: METHADONE HCL 10 MG TABLET ONE (04:01)
[2019-03-23] MEDS ORDERED: METHADONE HCL 40 MG DISPERSABLE TABLET ONE (04:02)
[2019-03-23] MEDS: DOCUSATE SODIUM 100 MG CAPSULE (FP) PO SCH ×3 (06:22→21:29)
[2019-03-23] MEDS: METHADONE 40 MG, METHADONE 30 MG PO SCH (06:22)
[2019-03-23] MEDS: NICOTINE 21 MG/24 HOURS TOPICAL PATCH TD SCH (10:22)
[2019-03-23] MEDS: FUROSEMIDE 40 MG TABLET (FP) PO SCH ×2 (10:22→21:29)
[2019-03-23] MEDS: CARVEDILOL 12.5 MG TABLET (FP) PO SCH ×2 (10:22→21:29)
[2019-03-23] MEDS: PRENATAL VITAMINS W/ FOLIC ACID TABLET (FP) PO SCH (10:22)
[2019-03-23] MEDS: ASPIRIN 81 MG CHEWABLE TABLETS PO SCH (10:22)
[2019-03-23] MEDS: LISINOPRIL 20 MG TABLET (FP) PO SCH (10:22)
[2019-03-23] MEDS: HYDROCORTISONE 2.5% TOPICAL CREAM 30 GM TUBE TP SCH ×2 (10:22→21:30)
[2019-03-23] MEDS: ATORVASTATIN CA 40 MG TABLET (FP) PO SCH (21:29)
[2019-03-23] MEDS: THIAMINE HCL 100 MG TABLET (FP) PO SCH (21:30)
[2019-03-23] MEDS: MELATONIN 5 MG TABLETS PO PRN (21:30)
[2019-03-24] MEDS ORDERED: METHADONE HCL 40 MG DISPERSABLE TABLET ONE (05:48)
[2019-03-24] MEDS ORDERED: METHADONE HCL 10 MG TABLET ONE (05:48)
[2019-03-24] MEDS: METHADONE 40 MG, METHADONE 30 MG PO SCH (06:24)
[2019-03-24] MEDS: DOCUSATE SODIUM 100 MG CAPSULE (FP) PO SCH ×3 (06:24→21:25)
[2019-03-24] MEDS: ASPIRIN 81 MG CHEWABLE TABLETS PO SCH (09:44)
[2019-03-24] MEDS: LISINOPRIL 20 MG TABLET (FP) PO SCH (09:44)
[2019-03-24] MEDS: PRENATAL VITAMINS W/ FOLIC ACID TABLET (FP) PO SCH (09:44)
[2019-03-24] MEDS: CARVEDILOL 12.5 MG TABLET (FP) PO SCH ×2 (09:44→21:26)
[2019-03-24] MEDS: FUROSEMIDE 40 MG TABLET (FP) PO SCH ×2 (09:44→21:26)
[2019-03-24] MEDS: HYDROCORTISONE 2.5% TOPICAL CREAM 30 GM TUBE TP SCH ×2 (09:45→21:29)
[2019-03-24] MEDS: NICOTINE 21 MG/24 HOURS TOPICAL PATCH TD SCH (09:45)
[2019-03-24] MEDS: MELATONIN 5 MG TABLETS PO PRN (21:26)
[2019-03-24] MEDS: THIAMINE HCL 100 MG TABLET (FP) PO SCH (21:26)
[2019-03-24] MEDS: ATORVASTATIN CA 40 MG TABLET (FP) PO SCH (21:26)
[2019-03-25] MEDS ORDERED: METHADONE HCL 40 MG DISPERSABLE TABLET ONE (03:25)
[2019-03-25] MEDS ORDERED: METHADONE HCL 10 MG TABLET ONE (03:25)
[2019-03-25] MEDS: METHADONE 40 MG, METHADONE 30 MG PO SCH (06:19)
[2019-03-25] MEDS: DOCUSATE SODIUM 100 MG CAPSULE (FP) PO SCH ×3 (06:19→21:26)
[2019-03-25] MEDS: LISINOPRIL 20 MG TABLET (FP) PO SCH (10:06)
[2019-03-25] MEDS: FUROSEMIDE 40 MG TABLET (FP) PO SCH ×2 (10:06→21:27)
[2019-03-25] MEDS: PRENATAL VITAMINS W/ FOLIC ACID TABLET (FP) PO SCH (10:06)
[2019-03-25] MEDS: HYDROCORTISONE 2.5% TOPICAL CREAM 30 GM TUBE TP SCH ×2 (10:06→21:25)
[2019-03-25] MEDS: CARVEDILOL 12.5 MG TABLET (FP) PO SCH ×2 (10:06→21:26)
[2019-03-25] MEDS: ASPIRIN 81 MG CHEWABLE TABLETS PO SCH (10:06)
[2019-03-25] MEDS: NICOTINE 21 MG/24 HOURS TOPICAL PATCH TD SCH (10:07)
[2019-03-25] MEDS: ATORVASTATIN CA 40 MG TABLET (FP) PO SCH (21:26)
[2019-03-25] MEDS: MELATONIN 5 MG TABLETS PO PRN (21:27)
[2019-03-25] MEDS: THIAMINE HCL 100 MG TABLET (FP) PO SCH (21:27)
[2019-03-26] MEDS ORDERED: METHADONE HCL 10 MG TABLET ONE (03:09)
[2019-03-26] MEDS ORDERED: METHADONE HCL 40 MG DISPERSABLE TABLET ONE (03:09)
[2019-03-26] MEDS: DOCUSATE SODIUM 100 MG CAPSULE (FP) PO SCH ×3 (06:28→21:32)
[2019-03-26] MEDS: METHADONE 40 MG, METHADONE 30 MG PO SCH (06:28)
[2019-03-26] MEDS: LISINOPRIL 20 MG TABLET (FP) PO SCH (10:07)
[2019-03-26] MEDS: FUROSEMIDE 40 MG TABLET (FP) PO SCH ×2 (10:07→21:33)
[2019-03-26] MEDS: ASPIRIN 81 MG CHEWABLE TABLETS PO SCH (10:07)
[2019-03-26] MEDS: CARVEDILOL 12.5 MG TABLET (FP) PO SCH ×2 (10:07→21:32)
[2019-03-26] MEDS: PRENATAL VITAMINS W/ FOLIC ACID TABLET (FP) PO SCH (10:07)
[2019-03-26] MEDS: NICOTINE 21 MG/24 HOURS TOPICAL PATCH TD SCH (10:08)
[2019-03-26] MEDS: HYDROCORTISONE 2.5% TOPICAL CREAM 30 GM TUBE TP SCH ×2 (10:09→21:36)
[2019-03-26] MEDS: NICOTINE POLACRILEX 4 MG GUM BUC PRN (14:39)
[2019-03-26] MEDS: ATORVASTATIN CA 40 MG TABLET (FP) PO SCH (21:32)
[2019-03-26] MEDS: THIAMINE HCL 100 MG TABLET (FP) PO SCH (21:32)
[2019-03-26] MEDS: MELATONIN 5 MG TABLETS PO PRN (21:32)
[2019-03-27] MEDS ORDERED: METHADONE HCL 10 MG TABLET ONE (01:29)
[2019-03-27] MEDS ORDERED: METHADONE HCL 40 MG DISPERSABLE TABLET ONE (01:30)
[2019-03-27] MEDS: METHADONE 40 MG, METHADONE 30 MG PO SCH (06:30)
[2019-03-27] MEDS: DOCUSATE SODIUM 100 MG CAPSULE (FP) PO SCH ×3 (06:30→21:40)
[2019-03-27] MEDS: ASPIRIN 81 MG CHEWABLE TABLETS PO SCH (10:04)
[2019-03-27] MEDS: HYDROCORTISONE 2.5% TOPICAL CREAM 30 GM TUBE TP SCH ×2 (10:04→23:55)
[2019-03-27] MEDS: CARVEDILOL 12.5 MG TABLET (FP) PO SCH ×2 (10:05→21:40)
[2019-03-27] MEDS: PRENATAL VITAMINS W/ FOLIC ACID TABLET (FP) PO SCH (10:05)
[2019-03-27] MEDS: FUROSEMIDE 40 MG TABLET (FP) PO SCH ×2 (10:05→21:41)
[2019-03-27] MEDS: LISINOPRIL 20 MG TABLET (FP) PO SCH (10:05)
[2019-03-27] MEDS: NICOTINE 21 MG/24 HOURS TOPICAL PATCH TD SCH (10:06)
[2019-03-27] MEDS: hydrOXYzine PAMOATE 50 MG CAPSULE (FP) PO PRN (19:14)
[2019-03-27] MEDS: ATORVASTATIN CA 40 MG TABLET (FP) PO SCH (21:40)
[2019-03-27] MEDS: THIAMINE HCL 100 MG TABLET (FP) PO SCH (21:41)
[2019-03-27] MEDS: MELATONIN 5 MG TABLETS PO PRN (21:41)
[2019-03-28] MEDS ORDERED: METHADONE HCL 40 MG DISPERSABLE TABLET ONE (02:27)
[2019-03-28] MEDS ORDERED: METHADONE HCL 10 MG TABLET ONE (02:27)
[2019-03-28] MEDS: DOCUSATE SODIUM 100 MG CAPSULE (FP) PO SCH ×3 (06:18→21:50)
[2019-03-28] MEDS: METHADONE 40 MG, METHADONE 30 MG PO SCH (06:19)
[2019-03-28] MEDS: HYDROCHLOROTHIAZIDE 25 MG TABLET (FP) PO SCH (07:33)
[2019-03-28] MEDS: LISINOPRIL 20 MG TABLET (FP) PO SCH (07:33)
[2019-03-28] MEDS: PRENATAL VITAMINS W/ FOLIC ACID TABLET (FP) PO SCH (10:12)
[2019-03-28] MEDS: FUROSEMIDE 40 MG TABLET (FP) PO SCH ×2 (10:12→21:50)
[2019-03-28] MEDS: CARVEDILOL 12.5 MG TABLET (FP) PO SCH ×2 (10:12→21:50)
[2019-03-28] MEDS: ASPIRIN 81 MG CHEWABLE TABLETS PO SCH (10:12)
[2019-03-28] MEDS: NICOTINE 21 MG/24 HOURS TOPICAL PATCH TD SCH (10:13)
[2019-03-28] MEDS: HYDROCORTISONE 2.5% TOPICAL CREAM 30 GM TUBE TP SCH ×2 (11:58→21:49)
[2019-03-28] MEDS: hydrOXYzine PAMOATE 50 MG CAPSULE (FP) PO PRN (16:38)
[2019-03-28] MEDS: ATORVASTATIN CA 40 MG TABLET (FP) PO SCH (21:50)
[2019-03-28] MEDS: MELATONIN 5 MG TABLETS PO PRN (21:51)
[2019-03-28] MEDS: THIAMINE HCL 100 MG TABLET (FP) PO SCH (21:51)
[2019-03-29] MEDS ORDERED: METHADONE HCL 40 MG DISPERSABLE TABLET ONE (04:38)
[2019-03-29] MEDS ORDERED: METHADONE HCL 10 MG TABLET ONE (04:38)
[2019-03-29] MEDS ORDERED: METHADONE HCL 10 MG TABLET PO SCH (06:00)
[2019-03-29] MEDS: DOCUSATE SODIUM 100 MG CAPSULE (FP) PO SCH ×3 (06:15→21:25)
[2019-03-29] MEDS: METHADONE 40 MG, METHADONE 30 MG PO SCH (06:15)
[2019-03-29] MEDS: LISINOPRIL 20 MG TABLET (FP) PO SCH (06:18)
[2019-03-29] MEDS: HYDROCHLOROTHIAZIDE 25 MG TABLET (FP) PO SCH (06:18)
[2019-03-29] MEDS: PRENATAL VITAMINS W/ FOLIC ACID TABLET (FP) PO SCH (09:56)
[2019-03-29] MEDS: FUROSEMIDE 40 MG TABLET (FP) PO SCH ×2 (09:56→17:50)
[2019-03-29] MEDS: NICOTINE 21 MG/24 HOURS TOPICAL PATCH TD SCH (09:56)
[2019-03-29] MEDS: ASPIRIN 81 MG CHEWABLE TABLETS PO SCH (09:56)
[2019-03-29] MEDS: HYDROCORTISONE 2.5% TOPICAL CREAM 30 GM TUBE TP SCH ×2 (09:56→21:26)
[2019-03-29] MEDS: CARVEDILOL 12.5 MG TABLET (FP) PO SCH ×2 (09:56→21:25)
[2019-03-29] MEDS: hydrOXYzine PAMOATE 50 MG CAPSULE (FP) PO PRN (14:15)
--- NOTE | 2019-03-29 16:55 | PN ---
S Progress Note Note: PT REQUESTING BLOOD SUGAR CHECKS. RANDOM GLC ON ADMISSION TO DETOX =187 MG/DL; REPEAT WAS 86 MG/DL PLAN:FBS X 3 DAYS
[2019-03-29] MEDS: ATORVASTATIN CA 40 MG TABLET (FP) PO SCH (21:25)
[2019-03-29] MEDS: THIAMINE HCL 100 MG TABLET (FP) PO SCH (21:25)
[2019-03-29] MEDS: MELATONIN 5 MG TABLETS PO PRN (21:25)
[2019-03-30] MEDS ORDERED: METHADONE HCL 40 MG DISPERSABLE TABLET ONE (02:59)
[2019-03-30] MEDS ORDERED: METHADONE HCL 10 MG TABLET ONE (02:59)
[2019-03-30] MEDS: METHADONE 40 MG, METHADONE 30 MG PO SCH (06:14)
[2019-03-30] MEDS: DOCUSATE SODIUM 100 MG CAPSULE (FP) PO SCH ×3 (06:15→21:35)
[2019-03-30] MEDS: HYDROCHLOROTHIAZIDE 25 MG TABLET (FP) PO SCH (06:15)
[2019-03-30] MEDS: LISINOPRIL 20 MG TABLET (FP) PO SCH (06:15)
[2019-03-30] MEDS: PRENATAL VITAMINS W/ FOLIC ACID TABLET (FP) PO SCH (10:22)
[2019-03-30] MEDS: ASPIRIN 81 MG CHEWABLE TABLETS PO SCH (10:22)
[2019-03-30] MEDS: FUROSEMIDE 40 MG TABLET (FP) PO SCH ×2 (10:22→17:37)
[2019-03-30] MEDS: CARVEDILOL 12.5 MG TABLET (FP) PO SCH ×2 (10:22→21:35)
[2019-03-30] MEDS: HYDROCORTISONE 2.5% TOPICAL CREAM 30 GM TUBE TP SCH ×2 (10:23→21:36)
[2019-03-30] MEDS: NICOTINE 21 MG/24 HOURS TOPICAL PATCH TD SCH (10:23)
--- NOTE | 2019-03-30 11:33 | PN ---
S Progress Note Note: Laboratory Tests 03/30/19 06:33 POC Glucometer 124 Vital Signs - 24 hr 03/29/19 03/29/19 03/30/19 17:50 21:00 00:30 Temperature Pulse Rate 60 53 L Respiratory 18 Rate Blood Pressure 148/72 181/80 H 03/30/19 03/30/19 03/30/19 03:30 06:42 10:00 Temperature 97.8 F Pulse Rate 51 L 55 L Respiratory 18 18 Rate Blood Pressure 158/86 147/75 PT DENIES HX DM BUT REQUESTS TO BE CHECKED. PLAN:CHANGE TO TRE/NCS DIET. FASTING BGM DIRECTED DIETARY CONSULT
[2019-03-30] MEDS: hydrOXYzine PAMOATE 50 MG CAPSULE (FP) PO PRN (14:10)
[2019-03-30] MEDS: ATORVASTATIN CA 40 MG TABLET (FP) PO SCH (21:35)
[2019-03-30] MEDS: CYCLOBENZAPRINE HCL 10 MG TABLET (FP) PO PRN (21:35)
[2019-03-30] MEDS: THIAMINE HCL 100 MG TABLET (FP) PO SCH (21:35)
[2019-03-30] MEDS: MELATONIN 5 MG TABLETS PO PRN (21:35)
[2019-03-31] MEDS ORDERED: METHADONE HCL 40 MG DISPERSABLE TABLET ONE (04:00)
[2019-03-31] MEDS ORDERED: METHADONE HCL 10 MG TABLET ONE (04:00)
[2019-03-31] MEDS: HYDROCHLOROTHIAZIDE 25 MG TABLET (FP) PO SCH (06:11)
[2019-03-31] MEDS: DOCUSATE SODIUM 100 MG CAPSULE (FP) PO SCH ×3 (06:11→21:19)
[2019-03-31] MEDS: METHADONE 40 MG, METHADONE 30 MG PO SCH (06:11)
[2019-03-31] MEDS: LISINOPRIL 20 MG TABLET (FP) PO SCH (06:11)
[2019-03-31] MEDS: PRENATAL VITAMINS W/ FOLIC ACID TABLET (FP) PO SCH (10:01)
[2019-03-31] MEDS: FUROSEMIDE 40 MG TABLET (FP) PO SCH ×2 (10:01→17:32)
[2019-03-31] MEDS: NICOTINE 21 MG/24 HOURS TOPICAL PATCH TD SCH (10:01)
[2019-03-31] MEDS: ASPIRIN 81 MG CHEWABLE TABLETS PO SCH (10:01)
[2019-03-31] MEDS: CARVEDILOL 12.5 MG TABLET (FP) PO SCH ×2 (10:02→21:19)
[2019-03-31] MEDS: HYDROCORTISONE 2.5% TOPICAL CREAM 30 GM TUBE TP SCH ×2 (11:58→21:43)
[2019-03-31] MEDS: hydrOXYzine PAMOATE 50 MG CAPSULE (FP) PO PRN (19:45)
[2019-03-31] MEDS: CYCLOBENZAPRINE HCL 10 MG TABLET (FP) PO PRN (21:19)
[2019-03-31] MEDS: ATORVASTATIN CA 40 MG TABLET (FP) PO SCH (21:20)
[2019-03-31] MEDS: THIAMINE HCL 100 MG TABLET (FP) PO SCH (21:20)
[2019-03-31] MEDS: MELATONIN 5 MG TABLETS PO PRN (21:20)
[2019-04-01] MEDS ORDERED: METHADONE HCL 40 MG DISPERSABLE TABLET ONE (06:00)
[2019-04-01] MEDS ORDERED: METHADONE HCL 10 MG TABLET ONE (06:00)
[2019-04-01] MEDS: HYDROCHLOROTHIAZIDE 25 MG TABLET (FP) PO SCH (06:02)
[2019-04-01] MEDS: LISINOPRIL 20 MG TABLET (FP) PO SCH (06:02)
[2019-04-01] MEDS: DOCUSATE SODIUM 100 MG CAPSULE (FP) PO SCH ×3 (06:02→21:33)
[2019-04-01] MEDS: METHADONE 40 MG, METHADONE 30 MG PO SCH (06:03)
[2019-04-01] MEDS: ASPIRIN 81 MG CHEWABLE TABLETS PO SCH (09:58)
[2019-04-01] MEDS: CARVEDILOL 12.5 MG TABLET (FP) PO SCH ×2 (09:58→21:33)
[2019-04-01] MEDS: FUROSEMIDE 40 MG TABLET (FP) PO SCH ×2 (09:58→18:56)
[2019-04-01] MEDS: HYDROCORTISONE 2.5% TOPICAL CREAM 30 GM TUBE TP SCH ×2 (09:58→21:34)
[2019-04-01] MEDS: PRENATAL VITAMINS W/ FOLIC ACID TABLET (FP) PO SCH (09:59)
[2019-04-01] MEDS: NICOTINE 21 MG/24 HOURS TOPICAL PATCH TD SCH (09:59)
[2019-04-01] MEDS: NICOTINE POLACRILEX 4 MG GUM BUC PRN (10:00)
[2019-04-01] MEDS: ATORVASTATIN CA 40 MG TABLET (FP) PO SCH (21:32)
[2019-04-01] MEDS: MELATONIN 5 MG TABLETS PO PRN (21:33)
[2019-04-01] MEDS: THIAMINE HCL 100 MG TABLET (FP) PO SCH (21:33)
[2019-04-01] MEDS: hydrOXYzine PAMOATE 50 MG CAPSULE (FP) PO PRN (21:36)
[2019-04-01] MEDS: ALBUTEROL SO4 8 GM HFA INHALER IH PRN (21:36)
[2019-04-02] MEDS ORDERED: METHADONE HCL 10 MG TABLET ONE (03:49)
[2019-04-02] MEDS ORDERED: METHADONE HCL 40 MG DISPERSABLE TABLET ONE (03:49)
[2019-04-02] MEDS: METHADONE 40 MG, METHADONE 30 MG PO SCH (06:31)
[2019-04-02] MEDS: LISINOPRIL 20 MG TABLET (FP) PO SCH (06:31)
[2019-04-02] MEDS: DOCUSATE SODIUM 100 MG CAPSULE (FP) PO SCH ×3 (06:31→21:45)
[2019-04-02] MEDS: HYDROCHLOROTHIAZIDE 25 MG TABLET (FP) PO SCH (06:31)
[2019-04-02] MEDS: NICOTINE 21 MG/24 HOURS TOPICAL PATCH TD SCH (10:29)
[2019-04-02] MEDS: PRENATAL VITAMINS W/ FOLIC ACID TABLET (FP) PO SCH (10:30)
[2019-04-02] MEDS: FUROSEMIDE 40 MG TABLET (FP) PO SCH ×2 (10:30→17:05)
[2019-04-02] MEDS: CARVEDILOL 12.5 MG TABLET (FP) PO SCH ×2 (10:30→21:45)
[2019-04-02] MEDS: ASPIRIN 81 MG CHEWABLE TABLETS PO SCH (10:30)
[2019-04-02] MEDS: HYDROCORTISONE 2.5% TOPICAL CREAM 30 GM TUBE TP SCH ×2 (10:30→21:46)
[2019-04-02] MEDS: NICOTINE POLACRILEX 4 MG GUM BUC PRN (10:31)
[2019-04-02] MEDS: hydrOXYzine PAMOATE 50 MG CAPSULE (FP) PO PRN (13:31)
[2019-04-02] MEDS: ATORVASTATIN CA 40 MG TABLET (FP) PO SCH (21:45)
[2019-04-02] MEDS: THIAMINE HCL 100 MG TABLET (FP) PO SCH (21:45)
[2019-04-02] MEDS: MELATONIN 5 MG TABLETS PO PRN (21:45)
[2019-04-03] MEDS ORDERED: METHADONE HCL 40 MG DISPERSABLE TABLET ONE (03:06)
[2019-04-03] MEDS ORDERED: METHADONE HCL 10 MG TABLET ONE (03:06)
[2019-04-03] MEDS: METHADONE 40 MG, METHADONE 30 MG PO SCH (06:20)
[2019-04-03] MEDS: LISINOPRIL 20 MG TABLET (FP) PO SCH (06:21)
[2019-04-03] MEDS: DOCUSATE SODIUM 100 MG CAPSULE (FP) PO SCH (06:21)
[2019-04-03] MEDS: HYDROCHLOROTHIAZIDE 25 MG TABLET (FP) PO SCH (06:21)
[2019-04-03 06:51] VITALS: BP 135/82; PULSE 82; TEMP 97.9
--- NOTE | 2019-04-03 09:53 | PN ---
[facility] Progress Note Note: PT COMPLETED REHAB AND DISCHARGED TODAY. PT WAS SEEN BY HIS COUNSELOR, LIZ MARIE AND HAS BEE REFERRED BACK TO [facility] FOR CD AFTERCARE AND MEDICAL WITH PCP DR. KRISTI GOLDBERG. PT REPORTS HE HAS ALL HIS MEDICATIONS AND WILL FOLLOW UP CARE WITH PROVIDERS INDICATED. PT IS ALERT O X 3. DENIES S/H/I. Home Medications Medication Instructions Recorded Acetaminophen [Arthritis Pain 650 mg PO PRN 03/16/19 Relief] Albuterol Sulfate Inhaler - 2 inh PO Q4H PRN 03/16/19 [Ventolin Hfa Inhaler -] Aspirin 81 mg PO DAILY 03/16/19 Atorvastatin Ca [Lipitor] 40 mg PO HS 03/16/19 Carvedilol [Coreg -] 12.5 mg PO BID 03/16/19 Furosemide [Lasix -] 40 mg PO BID 03/16/19 Lisinopril [Zestril] 40 mg PO DAILY 03/16/19 Docusate Sodium [Colace] 100 mg PO TID 03/21/19 Vital Signs - 24 hr 04/02/19 04/03/19 04/03/19 23:13 00:30 03:30 Temperature Pulse Rate 61 Respiratory 16 16 Rate Blood Pressure 148/79 04/03/19 06:50 Temperature 97.9 F Pulse Rate 82 Respiratory 18 Rate Blood Pressure 135/82 Laboratory Tests 03/30/19 03/31/19 04/01/19 06:33 06:09 05:58 POC Glucometer 124 84 113 04/02/19 04/03/19 07:18 06:19 POC Glucometer 85 95 NAD MEDICALLY STABLE PLAN:D/C PT TODAY FOLLOW UP WITH CD AFTERCARE AND PCP RECOMMENDED.
[2019-04-03] MEDS: ASPIRIN 81 MG CHEWABLE TABLETS PO SCH (10:32)
[2019-04-03] MEDS: CARVEDILOL 12.5 MG TABLET (FP) PO SCH (10:32)
[2019-04-03] MEDS: FUROSEMIDE 40 MG TABLET (FP) PO SCH (10:32)
[2019-04-03] MEDS: ALBUTEROL SO4 8 GM HFA INHALER IH PRN (10:34)
[2019-04-03] MEDS: HYDROCORTISONE 2.5% TOPICAL CREAM 30 GM TUBE TP SCH (10:41)
[2019-04-03] MEDS: NICOTINE 21 MG/24 HOURS TOPICAL PATCH TD SCH (10:41)
[2019-04-03] MEDS: PRENATAL VITAMINS W/ FOLIC ACID TABLET (FP) PO SCH (10:41)
[2019-04-04] MEDS ORDERED: METHADONE 40 MG, METHADONE 30 MG PO SCH (06:00)
== END 2019-04-03 12:30 | disposition home or self-care (01) | DRG 772 ==
LOC: YASAS 14:43 → Y5N 14:44
PROVIDERS: ADMIT Neuromusculoskeletal Medicine & OMM; ATTEND Neuromusculoskeletal Medicine & OMM
PROC: HZ42ZZZ Group Counseling for Substance Abuse Treatment, Cognitive-Behavioral (ICD-10-PCS; principal; 2019-03-21)
DX: F10.20 Alcohol dependence, uncomplicated (principal); F11.20 Opioid dependence, uncomplicated; F14.20 Cocaine dependence, uncomplicated; F17.210 Nicotine dependence, cigarettes, uncomplicated; I25.10 Atherosclerotic heart disease of native coronary artery without angina pectoris; I11.0 Hypertensive heart disease with heart failure; I50.9 Heart failure, unspecified; E78.00 Pure hypercholesterolemia, unspecified; R73.9 Hyperglycemia, unspecified
CPT/HCPCS: 82962

== ENCOUNTER 2020-01-11 10:15 | Inpatient (IN) | payer OTHER ==
--- NOTE | 2020-01-11 10:55 | BHS.RME ---
Substance Use & Tx History - Substance Use History Alcohol Substance amount: 2 pints vodka Frequency of use: Daily Substance route: Oral Date of Last Use: 01/10/20 Opiates (Heroin) Substance amount: 1 bundle Frequency of use: Daily Substance route: Inhalation (ex: sniffing or snorting) Date of Last Use: 01/11/20 Cocaine (Crack) Substance amount: $100 Frequency of use: Daily Substance route: Smoking Date of Last Use: 01/10/20 Physical/Psych/Mental Status - Behavior General Behavior: Increased activity (restlessness, agitation) - Cooperativeness Cooperativeness: Cooperative - Thinking Thought Processes: Tight, Logical, Goal Directed Thought content: Future oriented - Physical Health Problems Is patient presently having any pain?: No Does patient presently have any injuries (include location): No Does patient currently have a fever: No Is patient : No COWS - Scale Resting Pulse: 0= [place] 80 or Below Sweatin= Beads of Sweat on Face Restless Observation: 1= Difficult to Sit Still Pupil Size: 0= Normal to Room Light Bone or Joint Aches: 2= Severe Diffuse Aches Runny Nose/ Eye Tearin= Nasal Congestion GI Upset > 30mins: 1= Stomach Cramp Tremor Observation: 1= Tremor [place], Not Seen Yawning Observation: 1= 1-2x During Session Anxiety or Irritability: 1=Feels Anxious/Irritable Goose Flesh Skin: 0=Smooth Skin COWS Score: 11 (just used this morning) CIWA Nausea/Vomitin Muscle Tremors: 2 Anxiety: 2 Agitation: 2 Paroxysmal Sweats: 4-Forehead w/Sweat Beads Orientation: 1-Uncertain about Date Tacttile Disturbances: 0-None Auditory Disturbances: 0-None Visual Disturbances: 0-None Headache: 0-None Present CIWA-Ar Total Score: 13
[2020-01-11 12:23] VITALS: BMI 31.1
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
[2020-01-11] MEDS ORDERED: chlordiazePOXIDE HCL 25 MG CAPSULE PO PRN (12:58)
[2020-01-11] MEDS ORDERED: MAG HYDROX/AL HYDROX/SIMETH 30 ML UNIT-DOSE CUP PO PRN (12:58)
[2020-01-11] MEDS ORDERED: ACETAMINOPHEN 325 MG TABLET (FP) PO PRN ×2 (12:58)
[2020-01-11] MEDS ORDERED: IBUPROFEN 400 MG TABLET (FP) PO PRN (12:58)
[2020-01-11] MEDS ORDERED: hydrOXYzine PAMOATE 25 MG CAPSULE (FP) PO PRN (12:58)
[2020-01-11] MEDS ORDERED: MAGNESIUM HYDROX 2400MG/30ML ORAL SUSPENSION 30 ML CUP PO PRN (12:58)
[2020-01-11] MEDS ORDERED: BISMUTH SUBSALICYLATE 524 MG/30 ML UD PO PRN (12:58)
[2020-01-11] MEDS ORDERED: MENTHOL/PHENOL 1 EACH UD MM PRN (12:58)
[2020-01-11] MEDS ORDERED: METHOCARBAMOL 500 MG TABLET PO PRN (12:58)
[2020-01-11] MEDS ORDERED: MAGNESIUM CITRATE 300 ML BOTTLE PO PRN (12:58)
[2020-01-11] MEDS ORDERED: ALBUTEROL SO4 HFA INHALER IH PRN (13:00)
--- NOTE | 2020-01-11 13:04 | PN ---
BHS Progress Note Note: BP repeated at 1pm: 159/75, left arm, recumbent
--- NOTE | 2020-01-11 13:47 | PN ---
S Progress Note Note: EKG reviewed, T wave inversion in multiple leads. Compared to one done in February 2019, no change. findings are old, no further workup.
[2020-01-11] MEDS: BUDESONIDE/FORMETEROL FUMARATE 160/4.5 mcg INHALER IH SCH ×2 (14:58→23:18)
--- NOTE | 2020-01-11 15:17 | EKG ---
Test Reason : Blood Pressure : / mmHG Vent. Rate : 057 BPM Atrial Rate : 057 BPM P-R Int : 158 ms QRS Dur : 108 ms QT Int : 502 ms P-R-T Axes : 038 -23 210 degrees QTc Int : 488 ms SINUS BRADYCARDIA POSSIBLE LEFT ATRIAL ENLARGEMENT LEFT VENTRICULAR HYPERTROPHY WITH REPOLARIZATION ABNORMALITY PROLONGED QT ABNORMAL ECG WHEN COMPARED WITH ECG OF 16-MAR-2019 11:00, NO SIGNIFICANT CHANGE WAS FOUND Confirmed by USMAN BROWNE, JOYCE ([id number]) on 01/11/2020 3:17:05 PM Referred By: Confirmed By:JOYCE MARY MD
[2020-01-11 17:24] LABS: HEMATOCRIT 43.4 % (35.4-49); HEMOGLOBIN 13.7 GM/dL (11.7-16.9); MCH 29.5 pg (25.7-33.7); MCHC 31.6 g/dl (32.0-35.9); MEAN CELL VOLUME 93.6 fl (80-96); MEAN PLT VOLUME 9.8 fl (7.5-11.1); PLATELET COUNT 311 K/MM3 (134-434); RBC 4.64 M/mm3 (4.00-5.60); RDW 14.4 % (11.9-15.9); WHITE BLOOD COUNT 11.2 K/mm3 (4.0-10.0)
[2020-01-11 17:39] LABS: ALBUMIN 2.8 g/dl (3.4-5.0); BILIRUBIN,TOTAL 0.4 mg/dL (0.2-1); BLOOD UREA NITROGEN 13.2 mg/dL (7-18); CALCIUM 8.9 mg/dL (8.5-10.1); CREATININE 0.8 mg/dL (0.55-1.3); POTASSIUM 3.7 mmol/L (3.5-5.1); TOT PROT 7.2 g/dl (6.4-8.2)
[2020-01-11] MEDS: chlordiazePOXIDE HCL 25 MG CAPSULE PO SCH ×2 (17:58→23:18)
[2020-01-11] MEDS: THIAMINE HCL 100 MG TABLET (FP) PO SCH (23:18)
[2020-01-12] MEDS ORDERED: METHADONE HCL 10 MG TABLET ONE (05:04)
[2020-01-12] MEDS ORDERED: METHADONE HCL 40 MG DISPERSABLE TABLET ONE (05:05)
[2020-01-12] MEDS ORDERED: METHADONE HCL 10 MG TABLET PO SCH (06:00)
[2020-01-12] MEDS: chlordiazePOXIDE HCL 25 MG CAPSULE PO SCH ×4 (06:18→22:39)
[2020-01-12] MEDS: METHADONE 40 MG, METHADONE 10 MG PO SCH (06:18)
[2020-01-12] MEDS: ISOSORBIDE MONONITRATE 30 MG TAB.SR.24H (FP) PO SCH (11:03)
[2020-01-12] MEDS: FERROUS SO4 325 MG TABLET (FP) PO SCH (11:03)
[2020-01-12] MEDS: FUROSEMIDE 40 MG TABLET (FP) PO SCH (11:03)
[2020-01-12] MEDS: LISINOPRIL 20 MG TABLET (FP) PO SCH (11:03)
[2020-01-12] MEDS: PRENATAL VITAMINS W/ FOLIC ACID TABLET (FP) PO SCH (11:04)
[2020-01-12] MEDS: ASPIRIN 81 MG CHEWABLE TABLETS PO SCH (11:06)
[2020-01-12] MEDS: SPIRONOLACTONE 25 MG TABLET (FP) PO SCH (11:06)
[2020-01-12] MEDS: CARVEDILOL 25 MG TABLET (FP) PO SCH ×2 (11:06→22:33)
[2020-01-12] MEDS: BUDESONIDE/FORMETEROL FUMARATE 160/4.5 mcg INHALER IH SCH ×2 (11:11→22:33)
--- NOTE | 2020-01-12 11:24 | PN ---
[facility] CIWA - CIWA Score Nausea/Vomitin-Mild Nausea/No Vomiting Muscle Tremors: 1-None Visible, but [place] Anxiety: 1-Mildly Anxious Agitation: 3 Paroxysmal Sweats: 1-Minimal Palms Moist Orientation: 0-Oriented Tacttile Disturbances: 0-None Auditory Disturbances: 0-None Visual Disturbances: 0-None Headache: 0-None Present CIWA-Ar Total Score: 7 BHS Progress Note (SOAP) Subjective: Complains of fatigue Objective: 01/12/20 11:22 Laboratory Last Values WBC 11.2 K/mm3 (4.0-10.0) H 01/11/20 13:00 RBC 4.64 M/mm3 (4.00-5.60) 01/11/20 13:00 Hgb 13.7 GM/dL (11.7-16.9) 01/11/20 13:00 Hct 43.4 % (35.4-49) 01/11/20 13:00 MCV 93.6 fl (80-96) 01/11/20 13:00 MCH 29.5 pg (25.7-33.7) 01/11/20 13:00 MCHC 31.6 g/dl (32.0-35.9) L 01/11/20 13:00 RDW 14.4 % (11.9-15.9) 01/11/20 13:00 Plt Count 311 K/MM3 (134-434) D 01/11/20 13:00 MPV 9.8 fl (7.5-11.1) 01/11/20 13:00 Sodium 138 mmol/L (136-145) 01/11/20 13:00 Potassium 3.7 mmol/L (3.5-5.1) 01/11/20 13:00 Chloride 105 mmol/L (98-107) 01/11/20 13:00 Carbon Dioxide 28 mmol/L (21-32) 01/11/20 13:00 Anion Gap 5 MMOL/L (8-16) L 01/11/20 13:00 BUN 13.2 mg/dL (7-18) 01/11/20 13:00 Creatinine 0.8 mg/dL (0.55-1.3) 01/11/20 13:00 Est GFR (CKD-EPI)AfAm 120.72 01/11/20 13:00 Est GFR (CKD-EPI)NonAf 104.16 01/11/20 13:00 Random Glucose 154 mg/dL (74-106) H 01/11/20 13:00 Calcium 8.9 mg/dL (8.5-10.1) 01/11/20 13:00 Total Bilirubin 0.4 mg/dL (0.2-1) 01/11/20 13:00 AST 18 U/L (15-37) 01/11/20 13:00 ALT 27 U/L (13-61) 01/11/20 13:00 Alkaline Phosphatase 140 U/L (45-117) H 01/11/20 13:00 Total Protein 7.2 g/dl (6.4-8.2) 01/11/20 13:00 Albumin 2.8 g/dl (3.4-5.0) L 01/11/20 13:00 RPR Titer Nonreactive (NONREACTIVE) 01/11/20 13:00 Vital Signs Temperature 97.0 F L 01/12/20 09:17 Pulse Rate 66 01/12/20 09:17 Respiratory Rate 18 01/12/20 09:17 Blood Pressure 156/68 01/12/20 09:17 O2 Sat by Pulse Oximetry (%) Vital Signs (72 hours) 01/11/20 01/11/20 01/11/20 12:13 13:55 21:00 Temperature 97.7 F 97.3 F L 96.7 F L Pulse Rate 76 62 67 Respiratory 18 18 18 Rate Blood Pressure 220/112 H 144/66 118/53 L 01/12/20 01/12/20 01/12/20 00:30 03:30 06:09 Temperature 96.7 F L Pulse Rate 70 Respiratory 18 18 18 Rate Blood Pressure 170/88 01/12/20 01/12/20 07:38 09:17 Temperature 96.9 F L 97.0 F L Pulse Rate 66 66 Respiratory 18 18 Rate Blood Pressure 158/93 156/68 PE Gnl: WDWN, in bed Mentation: easily aroused, poorly cooperative Motor: moves 4 limbs symetrically 01/12/20 11:24 Assessment: 01/12/20 11:23 1. Alcohol use disorder 2. Hx HTN Plan: 1. Librium protocol 2. BP well controlled with current antihypertensive regime.
[2020-01-12] MEDS: hydrALAZINE HCL 25 MG TABLET (FP) PO SCH ×2 (15:20→22:33)
[2020-01-12] MEDS: THIAMINE HCL 100 MG TABLET (FP) PO SCH (22:32)
[2020-01-12] MEDS: ATORVASTATIN CA 40 MG TABLET (FP) PO SCH (22:33)
[2020-01-13] MEDS ORDERED: METHADONE HCL 10 MG TABLET ONE (05:35)
[2020-01-13] MEDS: METHADONE 40 MG, METHADONE 10 MG PO SCH (05:36)
[2020-01-13] MEDS: hydrALAZINE HCL 25 MG TABLET (FP) PO SCH ×3 (05:36→22:31)
[2020-01-13] MEDS ORDERED: METHADONE HCL 40 MG DISPERSABLE TABLET ONE (05:36)
[2020-01-13] MEDS: chlordiazePOXIDE HCL 25 MG CAPSULE PO SCH ×4 (05:39→22:31)
[2020-01-13] MEDS: ISOSORBIDE MONONITRATE 30 MG TAB.SR.24H (FP) PO SCH (10:19)
[2020-01-13] MEDS: BUDESONIDE/FORMETEROL FUMARATE 160/4.5 mcg INHALER IH SCH ×2 (10:19→23:03)
[2020-01-13] MEDS: FUROSEMIDE 40 MG TABLET (FP) PO SCH (10:19)
[2020-01-13] MEDS: ASPIRIN 81 MG CHEWABLE TABLETS PO SCH (10:19)
[2020-01-13] MEDS: FERROUS SO4 325 MG TABLET (FP) PO SCH (10:19)
[2020-01-13] MEDS: LISINOPRIL 20 MG TABLET (FP) PO SCH (10:19)
--- NOTE | 2020-01-13 11:29 | PN ---
S CIWA - CIWA Score Nausea/Vomitin-No Nausea/No Vomiting Muscle Tremors: None Anxiety: 3 Agitation: 0-Normal Activity Paroxysmal Sweats: 3 Orientation: 0-Oriented Tacttile Disturbances: 0-None Auditory Disturbances: 0-None Visual Disturbances: 0-None Headache: 2-Mild CIWA-Ar Total Score: 8 BHS Progress Note (SOAP) Subjective: c/o anxiety, headache, and sweats. Objective: 01/13/20 11:28 Vital Signs 01/13/20 01/13/20 01/13/20 03:30 05:29 09:08 Temperature 97.2 F L 97.0 F L Pulse Rate 61 78 Respiratory 18 18 16 Rate Blood Pressure 144/81 134/72 Laboratory Last Values WBC 11.2 K/mm3 (4.0-10.0) H 01/11/20 13:00 RBC 4.64 M/mm3 (4.00-5.60) 01/11/20 13:00 Hgb 13.7 GM/dL (11.7-16.9) 01/11/20 13:00 Hct 43.4 % (35.4-49) 01/11/20 13:00 MCV 93.6 fl (80-96) 01/11/20 13:00 MCH 29.5 pg (25.7-33.7) 01/11/20 13:00 MCHC 31.6 g/dl (32.0-35.9) L 01/11/20 13:00 RDW 14.4 % (11.9-15.9) 01/11/20 13:00 Plt Count 311 K/MM3 (134-434) D 01/11/20 13:00 MPV 9.8 fl (7.5-11.1) 01/11/20 13:00 Sodium 138 mmol/L (136-145) 01/11/20 13:00 Potassium 3.7 mmol/L (3.5-5.1) 01/11/20 13:00 Chloride 105 mmol/L (98-107) 01/11/20 13:00 Carbon Dioxide 28 mmol/L (21-32) 01/11/20 13:00 Anion Gap 5 MMOL/L (8-16) L 01/11/20 13:00 BUN 13.2 mg/dL (7-18) 01/11/20 13:00 Creatinine 0.8 mg/dL (0.55-1.3) 01/11/20 13:00 Est GFR (CKD-EPI)AfAm 120.72 01/11/20 13:00 Est GFR (CKD-EPI)NonAf 104.16 01/11/20 13:00 Random Glucose 154 mg/dL (74-106) H 01/11/20 13:00 Calcium 8.9 mg/dL (8.5-10.1) 01/11/20 13:00 Total Bilirubin 0.4 mg/dL (0.2-1) 01/11/20 13:00 AST 18 U/L (15-37) 01/11/20 13:00 ALT 27 U/L (13-61) 01/11/20 13:00 Alkaline Phosphatase 140 U/L (45-117) H 01/11/20 13:00 Total Protein 7.2 g/dl (6.4-8.2) 01/11/20 13:00 Albumin 2.8 g/dl (3.4-5.0) L 01/11/20 13:00 RPR Titer Nonreactive (NONREACTIVE) 01/11/20 13:00 Labs noted. Assessment: 01/13/20 11:28 AOX3, in no acute respiratory distress. Full ROM, ambulating in the unit. Withdrawal symptoms. Plan: continue detox.
[2020-01-13] MEDS: PRENATAL VITAMINS W/ FOLIC ACID TABLET (FP) PO SCH (11:53)
[2020-01-13] MEDS: SPIRONOLACTONE 25 MG TABLET (FP) PO SCH (11:53)
[2020-01-13] MEDS: CARVEDILOL 25 MG TABLET (FP) PO SCH ×2 (11:53→22:31)
[2020-01-13] MEDS: NICOTINE POLACRILEX 2 MG GUM BUC PRN (11:54)
[2020-01-13] MEDS: ATORVASTATIN CA 40 MG TABLET (FP) PO SCH (22:31)
[2020-01-13] MEDS: THIAMINE HCL 100 MG TABLET (FP) PO SCH (23:03)
[2020-01-14] MEDS ORDERED: chlordiazePOXIDE HCL 10 MG CAPSULE PO PRN
[2020-01-14] MEDS ORDERED: METHADONE HCL 40 MG DISPERSABLE TABLET ONE (03:36)
[2020-01-14] MEDS ORDERED: METHADONE HCL 10 MG TABLET ONE (03:36)
[2020-01-14] MEDS: METHADONE 40 MG, METHADONE 10 MG PO SCH (05:28)
[2020-01-14] MEDS: chlordiazePOXIDE HCL 10 MG CAPSULE PO SCH ×4 (05:28→23:26)
[2020-01-14] MEDS: hydrALAZINE HCL 25 MG TABLET (FP) PO SCH ×3 (05:28→23:25)
[2020-01-14] MEDS: LISINOPRIL 20 MG TABLET (FP) PO SCH (10:30)
[2020-01-14] MEDS: FUROSEMIDE 40 MG TABLET (FP) PO SCH (10:30)
[2020-01-14] MEDS: FERROUS SO4 325 MG TABLET (FP) PO SCH (10:30)
[2020-01-14] MEDS: ISOSORBIDE MONONITRATE 30 MG TAB.SR.24H (FP) PO SCH (10:30)
[2020-01-14] MEDS: ASPIRIN 81 MG CHEWABLE TABLETS PO SCH (10:30)
[2020-01-14] MEDS: PRENATAL VITAMINS W/ FOLIC ACID TABLET (FP) PO SCH (10:31)
[2020-01-14] MEDS: SPIRONOLACTONE 25 MG TABLET (FP) PO SCH (10:31)
[2020-01-14] MEDS: CARVEDILOL 25 MG TABLET (FP) PO SCH ×2 (10:31→23:25)
[2020-01-14] MEDS: NICOTINE POLACRILEX 2 MG GUM BUC PRN (10:32)
[2020-01-14] MEDS: BUDESONIDE/FORMETEROL FUMARATE 160/4.5 mcg INHALER IH SCH ×2 (10:32→23:26)
--- NOTE | 2020-01-14 12:46 | PN ---
S CIWA - CIWA Score Nausea/Vomitin-No Nausea/No Vomiting Muscle Tremors: 1-None Visible, but [place] Anxiety: 3 Agitation: 1-Slight > Activity Paroxysmal Sweats: 1-Minimal Palms Moist Orientation: 0-Oriented Tacttile Disturbances: 0-None Auditory Disturbances: 0-None Visual Disturbances: 0-None Headache: 0-None Present CIWA-Ar Total Score: 6 BHS Progress Note (SOAP) Subjective: 49 years old male admitted on 01/11/20 for alcohol withdrawal sx management treating with librium regiment feeling ok today received methadone 50mg po today health teaching on the importance of behavior and psychosocial therapies groups and meetings towards sobriety Objective: 01/14/20 12:47 Vital Signs Temperature 96.7 F L 01/14/20 08:33 Pulse Rate 67 01/14/20 08:33 Respiratory Rate 18 01/14/20 08:33 Blood Pressure 141/73 01/14/20 08:33 O2 Sat by Pulse Oximetry (%) Laboratory Last Values WBC 11.2 K/mm3 (4.0-10.0) H 01/11/20 13:00 RBC 4.64 M/mm3 (4.00-5.60) 01/11/20 13:00 Hgb 13.7 GM/dL (11.7-16.9) 01/11/20 13:00 Hct 43.4 % (35.4-49) 01/11/20 13:00 MCV 93.6 fl (80-96) 01/11/20 13:00 MCH 29.5 pg (25.7-33.7) 01/11/20 13:00 MCHC 31.6 g/dl (32.0-35.9) L 01/11/20 13:00 RDW 14.4 % (11.9-15.9) 01/11/20 13:00 Plt Count 311 K/MM3 (134-434) D 01/11/20 13:00 MPV 9.8 fl (7.5-11.1) 01/11/20 13:00 Sodium 138 mmol/L (136-145) 01/11/20 13:00 Potassium 3.7 mmol/L (3.5-5.1) 01/11/20 13:00 Chloride 105 mmol/L (98-107) 01/11/20 13:00 Carbon Dioxide 28 mmol/L (21-32) 01/11/20 13:00 Anion Gap 5 MMOL/L (8-16) L 01/11/20 13:00 BUN 13.2 mg/dL (7-18) 01/11/20 13:00 Creatinine 0.8 mg/dL (0.55-1.3) 01/11/20 13:00 Est GFR (CKD-EPI)AfAm 120.72 01/11/20 13:00 Est GFR (CKD-EPI)NonAf 104.16 01/11/20 13:00 Random Glucose 154 mg/dL (74-106) H 01/11/20 13:00 Calcium 8.9 mg/dL (8.5-10.1) 01/11/20 13:00 Total Bilirubin 0.4 mg/dL (0.2-1) 01/11/20 13:00 AST 18 U/L (15-37) 01/11/20 13:00 ALT 27 U/L (13-61) 01/11/20 13:00 Alkaline Phosphatase 140 U/L (45-117) H 01/11/20 13:00 Total Protein 7.2 g/dl (6.4-8.2) 01/11/20 13:00 Albumin 2.8 g/dl (3.4-5.0) L 01/11/20 13:00 RPR Titer Nonreactive (NONREACTIVE) 01/11/20 13:00 lab noted Assessment: 01/14/20 12:47 alcohol withdrawal Plan: librium regiment
[2020-01-14] MEDS: ATORVASTATIN CA 40 MG TABLET (FP) PO SCH (23:25)
[2020-01-14] MEDS: THIAMINE HCL 100 MG TABLET (FP) PO SCH (23:25)
[2020-01-14] MEDS: MELATONIN 5 MG TABLETS PO PRN (23:27)
[2020-01-15] MEDS ORDERED: METHADONE HCL 40 MG DISPERSABLE TABLET ONE (04:40)
[2020-01-15] MEDS ORDERED: METHADONE HCL 10 MG TABLET ONE (04:40)
[2020-01-15] MEDS: hydrALAZINE HCL 25 MG TABLET (FP) PO SCH ×3 (05:24→22:33)
[2020-01-15] MEDS: chlordiazePOXIDE HCL 10 MG CAPSULE PO SCH ×2 (05:24→18:39)
[2020-01-15] MEDS: METHADONE 40 MG, METHADONE 10 MG PO SCH (05:25)
[2020-01-15] MEDS: NICOTINE POLACRILEX 2 MG GUM BUC PRN (08:39)
[2020-01-15] MEDS ORDERED: ERGOCALCIFEROL (VIT D2) 50,000 UNIT (1.25 MG) CAPSULE PO SCH (10:00)
[2020-01-15] MEDS: FUROSEMIDE 40 MG TABLET (FP) PO SCH (10:44)
[2020-01-15] MEDS: ISOSORBIDE MONONITRATE 30 MG TAB.SR.24H (FP) PO SCH (10:44)
[2020-01-15] MEDS: LISINOPRIL 20 MG TABLET (FP) PO SCH (10:44)
[2020-01-15] MEDS: FERROUS SO4 325 MG TABLET (FP) PO SCH (10:44)
[2020-01-15] MEDS: PRENATAL VITAMINS W/ FOLIC ACID TABLET (FP) PO SCH (10:44)
[2020-01-15] MEDS: ASPIRIN 81 MG CHEWABLE TABLETS PO SCH (10:44)
[2020-01-15] MEDS: CARVEDILOL 25 MG TABLET (FP) PO SCH ×2 (10:45→22:34)
[2020-01-15] MEDS: BUDESONIDE/FORMETEROL FUMARATE 160/4.5 mcg INHALER IH SCH ×2 (10:45→22:35)
[2020-01-15] MEDS: SPIRONOLACTONE 25 MG TABLET (FP) PO SCH (10:45)
--- NOTE | 2020-01-15 14:20 | PN ---
S CIWA - CIWA Score Nausea/Vomitin-No Nausea/No Vomiting Muscle Tremors: 1-None Visible, but [place] Anxiety: 1-Mildly Anxious Agitation: 0-Normal Activity Paroxysmal Sweats: 1-Minimal Palms Moist Orientation: 0-Oriented Tacttile Disturbances: 0-None Auditory Disturbances: 0-None Visual Disturbances: 0-None Headache: 0-None Present CIWA-Ar Total Score: 3 BHS Progress Note (SOAP) Subjective: 49 years old male admitted on 01/11/20 for alcohol withdrawal sx management treating with librium detox regiment feeling better today less tremor mild anxiety patient prefers returning to methadone program as primary care patient will refill his cardio antihypertensive medication at the methadone program Objective: 01/15/20 14:20 Vital Signs Temperature 98.1 F 01/15/20 12:57 Pulse Rate 56 L 01/15/20 12:57 Respiratory Rate 18 01/15/20 12:57 Blood Pressure 119/54 L 01/15/20 12:57 O2 Sat by Pulse Oximetry (%) Laboratory Last Values WBC 11.2 K/mm3 (4.0-10.0) H 01/11/20 13:00 RBC 4.64 M/mm3 (4.00-5.60) 01/11/20 13:00 Hgb 13.7 GM/dL (11.7-16.9) 01/11/20 13:00 Hct 43.4 % (35.4-49) 01/11/20 13:00 MCV 93.6 fl (80-96) 01/11/20 13:00 MCH 29.5 pg (25.7-33.7) 01/11/20 13:00 MCHC 31.6 g/dl (32.0-35.9) L 01/11/20 13:00 RDW 14.4 % (11.9-15.9) 01/11/20 13:00 Plt Count 311 K/MM3 (134-434) D 01/11/20 13:00 MPV 9.8 fl (7.5-11.1) 01/11/20 13:00 Sodium 138 mmol/L (136-145) 01/11/20 13:00 Potassium 3.7 mmol/L (3.5-5.1) 01/11/20 13:00 Chloride 105 mmol/L (98-107) 01/11/20 13:00 Carbon Dioxide 28 mmol/L (21-32) 01/11/20 13:00 Anion Gap 5 MMOL/L (8-16) L 01/11/20 13:00 BUN 13.2 mg/dL (7-18) 01/11/20 13:00 Creatinine 0.8 mg/dL (0.55-1.3) 01/11/20 13:00 Est GFR (CKD-EPI)AfAm 120.72 01/11/20 13:00 Est GFR (CKD-EPI)NonAf 104.16 01/11/20 13:00 Random Glucose 154 mg/dL (74-106) H 01/11/20 13:00 Calcium 8.9 mg/dL (8.5-10.1) 01/11/20 13:00 Total Bilirubin 0.4 mg/dL (0.2-1) 01/11/20 13:00 AST 18 U/L (15-37) 01/11/20 13:00 ALT 27 U/L (13-61) 01/11/20 13:00 Alkaline Phosphatase 140 U/L (45-117) H 01/11/20 13:00 Total Protein 7.2 g/dl (6.4-8.2) 01/11/20 13:00 Albumin 2.8 g/dl (3.4-5.0) L 01/11/20 13:00 RPR Titer Nonreactive (NONREACTIVE) 01/11/20 13:00 lab noted Assessment: 01/15/20 14:20 alcohol withdrawal Plan: librium regiment
[2020-01-15] MEDS: ATORVASTATIN CA 40 MG TABLET (FP) PO SCH (22:32)
[2020-01-15] MEDS: THIAMINE HCL 100 MG TABLET (FP) PO SCH (22:32)
[2020-01-15] MEDS: MELATONIN 5 MG TABLETS PO PRN (22:35)
[2020-01-16] MEDS ORDERED: METHADONE HCL 10 MG TABLET ONE (03:13)
[2020-01-16] MEDS ORDERED: METHADONE HCL 40 MG DISPERSABLE TABLET ONE (03:13)
[2020-01-16] MEDS ORDERED: chlordiazePOXIDE HCL 10 MG CAPSULE PO ONE (05:00)
[2020-01-16] MEDS: hydrALAZINE HCL 25 MG TABLET (FP) PO SCH (05:34)
[2020-01-16] MEDS: METHADONE 40 MG, METHADONE 10 MG PO SCH (05:34)
[2020-01-16 09:32] VITALS: BP 134/74; PULSE 63; TEMP 97.8
--- NOTE | 2020-01-16 09:49 | DS ---
[facility] Detox Discharge Summary Admission Date: 01/11/20 Discharge Date: 01/16/20 - History Present History: Alcohol Dependence Additional Comments: 49 years old male admitted on 01/11/20 for alcohol withdrawal sx management treated with librium detox regiment Cha has completed the librium regiment and tolerated well alert oriented x 3 ekg indicated possible left atrial enlargement and left ventrical hypertrophy Mr Schneider had bp elevation episode at the first day of detox due to none adherence with antihypertensive medications bp within acceptable range upon discharge patient is asymptomatic no chest pain no dizziness no shortness of breath respiratory clear lungs bilaterally on auscultation abdomen soft round obese no rebound tenderness skin warm and dry Pertinent Past History: time for discharge: 40minutes - Physical Exam Results Vital Signs: Vital Signs Temperature 97.8 F 01/16/20 08:47 Pulse Rate 63 01/16/20 08:47 Respiratory Rate 18 01/16/20 08:47 Blood Pressure 134/74 01/16/20 08:47 O2 Sat by Pulse Oximetry (%) Pertinent Admission Physical Exam Findings: alcohol withdrawal Vital Signs Temperature 97.8 F 01/16/20 08:47 Pulse Rate 63 01/16/20 08:47 Respiratory Rate 18 01/16/20 08:47 Blood Pressure 134/74 01/16/20 08:47 O2 Sat by Pulse Oximetry (%) Laboratory Last Values WBC 11.2 K/mm3 (4.0-10.0) H 01/11/20 13:00 RBC 4.64 M/mm3 (4.00-5.60) 01/11/20 13:00 Hgb 13.7 GM/dL (11.7-16.9) 01/11/20 13:00 Hct 43.4 % (35.4-49) 01/11/20 13:00 MCV 93.6 fl (80-96) 01/11/20 13:00 MCH 29.5 pg (25.7-33.7) 01/11/20 13:00 MCHC 31.6 g/dl (32.0-35.9) L 01/11/20 13:00 RDW 14.4 % (11.9-15.9) 01/11/20 13:00 Plt Count 311 K/MM3 (134-434) D 01/11/20 13:00 MPV 9.8 fl (7.5-11.1) 01/11/20 13:00 Sodium 138 mmol/L (136-145) 01/11/20 13:00 Potassium 3.7 mmol/L (3.5-5.1) 01/11/20 13:00 Chloride 105 mmol/L (98-107) 01/11/20 13:00 Carbon Dioxide 28 mmol/L (21-32) 01/11/20 13:00 Anion Gap 5 MMOL/L (8-16) L 01/11/20 13:00 BUN 13.2 mg/dL (7-18) 01/11/20 13:00 Creatinine 0.8 mg/dL (0.55-1.3) 01/11/20 13:00 Est GFR (CKD-EPI)AfAm 120.72 01/11/20 13:00 Est GFR (CKD-EPI)NonAf 104.16 01/11/20 13:00 Random Glucose 154 mg/dL (74-106) H 01/11/20 13:00 Calcium 8.9 mg/dL (8.5-10.1) 01/11/20 13:00 Total Bilirubin 0.4 mg/dL (0.2-1) 01/11/20 13:00 AST 18 U/L (15-37) 01/11/20 13:00 ALT 27 U/L (13-61) 01/11/20 13:00 Alkaline Phosphatase 140 U/L (45-117) H 01/11/20 13:00 Total Protein 7.2 g/dl (6.4-8.2) 01/11/20 13:00 Albumin 2.8 g/dl (3.4-5.0) L 01/11/20 13:00 RPR Titer Nonreactive (NONREACTIVE) 01/11/20 13:00 lab noted - Treatment Hospital Course: Detox Protocol Followed, Detoxed Safely, Responded well, Discharged Condition Good, Rehab Referral Accepted Patient has Accepted a Rehab Referral to: [facility] - Medication Discharge Medications: Ambulatory Orders Aspirin 81 mg PO DAILY 03/16/19 Atorvastatin Ca [Lipitor] 40 mg PO HS 03/16/19 Furosemide [Lasix -] 40 mg PO DAILY 03/16/19 Lisinopril [Zestril] 40 mg PO DAILY 03/16/19 Carvedilol [Coreg -] 25 mg PO BID 01/11/20 Ergocalciferol [Vitamin D2] 50,000 unit PO WEEKLY 01/11/20 Ferrous Sulfate 325 mg PO DAILY 01/11/20 Hydralazine HCl 25 mg PO Q8H 01/11/20 Isosorbide Mononitrate [Imdur -] 30 mg PO DAILY 01/11/20 Spironolactone 12.5 mg PO DAILY 01/11/20 Albuterol Sulfate Inhaler - [Ventolin HFA Inhaler -] 2 inh PO Q4H PRN #1 inhaler 01/15/20 Budesonide/Formeterol Fumarate [SYMBICORT 160/4.5mcg -] 1 inh PO BID #1 inhaler 01/15/20 - Diagnosis (1) Alcohol dependence with uncomplicated withdrawal Current Visit: Yes Status: Acute (2) CAD (coronary artery disease) Current Visit: Yes Status: Chronic Qualifiers: Coronary Disease-Associated Artery/Lesion type: unspecified vessel or lesion type [place] vs. transplanted heart: [place] heart Associated angina: without angina Qualified Code(s): I25.10 - Atherosclerotic heart disease of [place] coronary artery without angina pectoris (3) Essential hypertension Current Visit: Yes Status: Chronic (4) History of CHF (congestive heart failure) Current Visit: Yes Status: Chronic (5) History of asthma Current Visit: Yes Status: Chronic (6) Hypercholesteremia Current Visit: Yes Status: Chronic (7) Methadone maintenance therapy patient Current Visit: Yes Status: Chronic (8) Nicotine dependence Current Visit: Yes Status: Acute Qualifiers: Nicotine product type: cigarettes Substance use status: in withdrawal Qualified Code(s): F17.213 - Nicotine dependence, cigarettes, with withdrawal - AMA Did Patient Leave Against Medical Advice: No CIWA Score - CIWA Score Nausea/Vomitin-No Nausea/No Vomiting Muscle Tremors: 1-None Visible, but [place] Anxiety: 1-Mildly Anxious Agitation: 0-Normal Activity Paroxysmal Sweats: No Perspiration Orientation: 0-Oriented Tacttile Disturbances: 0-None Auditory Disturbances: 0-None Visual Disturbances: 0-None Headache: 0-None Present CIWA-Ar Total Score: 2
[2020-01-16] MEDS: PRENATAL VITAMINS W/ FOLIC ACID TABLET (FP) PO SCH (10:52)
[2020-01-16] MEDS: FERROUS SO4 325 MG TABLET (FP) PO SCH (10:52)
[2020-01-16] MEDS: ASPIRIN 81 MG CHEWABLE TABLETS PO SCH (10:52)
[2020-01-16] MEDS: LISINOPRIL 20 MG TABLET (FP) PO SCH (10:52)
[2020-01-16] MEDS: FUROSEMIDE 40 MG TABLET (FP) PO SCH (10:52)
[2020-01-16] MEDS: ISOSORBIDE MONONITRATE 30 MG TAB.SR.24H (FP) PO SCH (10:52)
[2020-01-16] MEDS: CARVEDILOL 25 MG TABLET (FP) PO SCH (10:54)
[2020-01-16] MEDS: SPIRONOLACTONE 25 MG TABLET (FP) PO SCH (10:54)
== END 2020-01-16 12:09 | disposition other institution (70) | DRG 773 ==
LOC: YASAS 10:15 → Y3N 12:59
PROVIDERS: ADMIT Allergy & Immunology; ATTEND Allergy & Immunology
PROC: HZ2ZZZZ Detoxification Services for Substance Abuse Treatment (ICD-10-PCS; principal; 2020-01-11)
DX: F10.230 Alcohol dependence with withdrawal, uncomplicated (principal); F10.220 Alcohol dependence with intoxication, uncomplicated; F11.20 Opioid dependence, uncomplicated; F14.20 Cocaine dependence, uncomplicated; F17.213 Nicotine dependence, cigarettes, with withdrawal; I11.0 Hypertensive heart disease with heart failure; I25.10 Atherosclerotic heart disease of native coronary artery without angina pectoris; I50.9 Heart failure, unspecified; J45.909 Unspecified asthma, uncomplicated; E78.5 Hyperlipidemia, unspecified
CPT/HCPCS: 36415; 80053; 85027; 86593; 93005; 93010

== ENCOUNTER 2020-01-16 12:12 | Inpatient (IN) | payer OTHER ==
--- NOTE | 2020-01-16 09:54 | HP ---
[facility] Rehab Assess/Revision - Admission History Admitted to Rehab from: Manjit Gip[facility] Date of Admission to Rehab: 01/16/20 - Findings Detox History & Physical reviewed: Yes Concur with findings: Yes Comments/Additional Findings: transferred from detox to rehab admission as per protocol Inpatient Rehab Admission - Rehab Decision to Admit Inpatient rehab admission?: Yes - Initial Determination Are CD services needed?: Yes Free of communicable disease: Yes Not in need of hospitalization: Yes - Rehab Admission Criteria Previous failed treatment: Yes Poor recovery environment: Yes Comorbidities: Yes Lacks judgement: Yes Patient is meeting Inpatient Rehab admission criteria:: Yes
[~2020-01-16 12:12] MED LIST: ACETAMINOPHEN 325 MG TABLET (FP) PO PRN; ALBUTEROL SO4 HFA INHALER IH PRN; IBUPROFEN 400 MG TABLET (FP) PO PRN; LOPERAMIDE HCL 2 MG CAPSULE PO PRN; MAGNESIUM CITRATE 300 ML BOTTLE PO PRN; MAGNESIUM HYDROX 2400MG/30ML ORAL SUSPENSION 30 ML CUP PO PRN; MENTHOL/PHENOL 1 EACH UD MM PRN; P-EPHED 60MG/TRIPROLIDI 2.5MG TABLET PO PRN; guaiFENesin 200 MG/10 ML 10 ML UNIT-DOSE CUPS PO PRN
[2020-01-16] MEDS: PRENATAL VITAMINS W/ FOLIC ACID TABLET (FP) PO SCH (15:53)
[2020-01-16] MEDS: hydrALAZINE HCL 25 MG TABLET (FP) PO SCH ×2 (15:55→21:31)
[2020-01-16] MEDS: NICOTINE POLACRILEX 2 MG GUM BUC PRN (19:30)
[2020-01-16] MEDS: ATORVASTATIN CA 40 MG TABLET (FP) PO SCH (21:32)
[2020-01-16] MEDS: THIAMINE HCL 100 MG TABLET (FP) PO SCH (21:32)
[2020-01-16] MEDS: MELATONIN 5 MG TABLETS PO PRN (21:32)
[2020-01-16] MEDS: CARVEDILOL 25 MG TABLET (FP) PO SCH (21:32)
[2020-01-16] MEDS: BUDESONIDE/FORMETEROL FUMARATE 160/4.5 mcg INHALER IH SCH (21:33)
[2020-01-17] MEDS ORDERED: METHADONE HCL 10 MG TABLET ONE (05:42)
[2020-01-17] MEDS ORDERED: METHADONE HCL 40 MG DISPERSABLE TABLET ONE (05:42)
[2020-01-17] MEDS ORDERED: METHADONE HCL 10 MG TABLET PO SCH (06:00)
[2020-01-17] MEDS: METHADONE 40 MG, METHADONE 10 MG PO SCH (06:12)
[2020-01-17] MEDS: hydrALAZINE HCL 25 MG TABLET (FP) PO SCH ×3 (06:12→21:03)
[2020-01-17] MEDS: FERROUS SO4 325 MG TABLET (FP) PO SCH (09:38)
[2020-01-17] MEDS: FUROSEMIDE 40 MG TABLET (FP) PO SCH (09:38)
[2020-01-17] MEDS: LISINOPRIL 20 MG TABLET (FP) PO SCH (09:38)
[2020-01-17] MEDS: PRENATAL VITAMINS W/ FOLIC ACID TABLET (FP) PO SCH (09:38)
[2020-01-17] MEDS: ASPIRIN 81 MG CHEWABLE TABLETS PO SCH (09:38)
[2020-01-17] MEDS: CARVEDILOL 25 MG TABLET (FP) PO SCH ×2 (09:38→21:03)
[2020-01-17] MEDS: ISOSORBIDE MONONITRATE 30 MG TAB.SR.24H (FP) PO SCH (09:38)
[2020-01-17] MEDS: SPIRONOLACTONE 25 MG TABLET (FP) PO SCH (09:39)
[2020-01-17] MEDS: BUDESONIDE/FORMETEROL FUMARATE 160/4.5 mcg INHALER IH SCH ×2 (09:41→21:04)
--- NOTE | 2020-01-17 11:29 | PN ---
[facility] Progress Note Note: Patient admitted to [facility] admission note reviewed, previous admissions reviewed, labs, home medications, problem list, orders reviewed. O: Vital Signs Period Temp Pulse Resp BP Sys/Nava Pulse Ox Last 24 Hr 98 F-98.1 F 61-71 16-18 147-156/75-92 P/E: General: no apparent distress HEENTM: normocephalic Neck: supple MSK: full weight bearing, steady gait. A/P: Substance use disorder Continue with rehab Maintain safety Hydration Monitor
[2020-01-17] MEDS: ATORVASTATIN CA 40 MG TABLET (FP) PO SCH (21:03)
[2020-01-17] MEDS: THIAMINE HCL 100 MG TABLET (FP) PO SCH (21:03)
[2020-01-17] MEDS: MELATONIN 5 MG TABLETS PO PRN (21:03)
[2020-01-18] MEDS ORDERED: METHADONE HCL 40 MG DISPERSABLE TABLET ONE (06:01)
[2020-01-18] MEDS ORDERED: METHADONE HCL 10 MG TABLET ONE (06:01)
[2020-01-18] MEDS: hydrALAZINE HCL 25 MG TABLET (FP) PO SCH ×3 (06:13→21:59)
[2020-01-18] MEDS: METHADONE 40 MG, METHADONE 10 MG PO SCH (06:13)
[2020-01-18] MEDS: FERROUS SO4 325 MG TABLET (FP) PO SCH (09:41)
[2020-01-18] MEDS: LISINOPRIL 20 MG TABLET (FP) PO SCH (09:41)
[2020-01-18] MEDS: ASPIRIN 81 MG CHEWABLE TABLETS PO SCH (09:41)
[2020-01-18] MEDS: FUROSEMIDE 40 MG TABLET (FP) PO SCH (09:41)
[2020-01-18] MEDS: CARVEDILOL 25 MG TABLET (FP) PO SCH ×2 (09:41→21:59)
[2020-01-18] MEDS: SPIRONOLACTONE 25 MG TABLET (FP) PO SCH (09:41)
[2020-01-18] MEDS: ISOSORBIDE MONONITRATE 30 MG TAB.SR.24H (FP) PO SCH (09:41)
[2020-01-18] MEDS: PRENATAL VITAMINS W/ FOLIC ACID TABLET (FP) PO SCH (09:41)
[2020-01-18] MEDS: BUDESONIDE/FORMETEROL FUMARATE 160/4.5 mcg INHALER IH SCH ×2 (09:43→22:01)
[2020-01-18] MEDS ORDERED: PT OWN MED DRAWER 7, Y5N ONE (13:46)
[2020-01-18] MEDS: BENZOCAINE 28 GM HEMORRHOIDAL OINTMENT PR PRN (21:58)
[2020-01-18] MEDS: MELATONIN 5 MG TABLETS PO PRN (21:59)
[2020-01-18] MEDS: ATORVASTATIN CA 40 MG TABLET (FP) PO SCH (21:59)
[2020-01-18] MEDS: THIAMINE HCL 100 MG TABLET (FP) PO SCH (22:00)
[2020-01-19] MEDS ORDERED: METHADONE HCL 40 MG DISPERSABLE TABLET ONE (05:49)
[2020-01-19] MEDS ORDERED: METHADONE HCL 10 MG TABLET ONE (05:49)
[2020-01-19] MEDS: hydrALAZINE HCL 25 MG TABLET (FP) PO SCH ×3 (06:08→21:02)
[2020-01-19] MEDS: METHADONE 40 MG, METHADONE 10 MG PO SCH (06:08)
[2020-01-19] MEDS: ISOSORBIDE MONONITRATE 30 MG TAB.SR.24H (FP) PO SCH (09:45)
[2020-01-19] MEDS: FUROSEMIDE 40 MG TABLET (FP) PO SCH (09:45)
[2020-01-19] MEDS: CARVEDILOL 25 MG TABLET (FP) PO SCH ×2 (09:45→21:02)
[2020-01-19] MEDS: ASPIRIN 81 MG CHEWABLE TABLETS PO SCH (09:45)
[2020-01-19] MEDS: PRENATAL VITAMINS W/ FOLIC ACID TABLET (FP) PO SCH (09:45)
[2020-01-19] MEDS: FERROUS SO4 325 MG TABLET (FP) PO SCH (09:45)
[2020-01-19] MEDS: LISINOPRIL 20 MG TABLET (FP) PO SCH (09:46)
[2020-01-19] MEDS: SPIRONOLACTONE 25 MG TABLET (FP) PO SCH (09:46)
[2020-01-19] MEDS: BUDESONIDE/FORMETEROL FUMARATE 160/4.5 mcg INHALER IH SCH ×2 (09:47→21:02)
[2020-01-19] MEDS: MELATONIN 5 MG TABLETS PO PRN (21:02)
[2020-01-19] MEDS: THIAMINE HCL 100 MG TABLET (FP) PO SCH (21:02)
[2020-01-19] MEDS: ATORVASTATIN CA 40 MG TABLET (FP) PO SCH (21:02)
[2020-01-20] MEDS ORDERED: METHADONE HCL 40 MG DISPERSABLE TABLET ONE (05:57)
[2020-01-20] MEDS ORDERED: METHADONE HCL 10 MG TABLET ONE (05:57)
[2020-01-20] MEDS: METHADONE 40 MG, METHADONE 10 MG PO SCH (06:23)
[2020-01-20] MEDS: hydrALAZINE HCL 25 MG TABLET (FP) PO SCH ×3 (06:23→21:34)
[2020-01-20] MEDS: FERROUS SO4 325 MG TABLET (FP) PO SCH (10:04)
[2020-01-20] MEDS: SPIRONOLACTONE 25 MG TABLET (FP) PO SCH (10:04)
[2020-01-20] MEDS: ISOSORBIDE MONONITRATE 30 MG TAB.SR.24H (FP) PO SCH (10:04)
[2020-01-20] MEDS: FUROSEMIDE 40 MG TABLET (FP) PO SCH (10:05)
[2020-01-20] MEDS: PRENATAL VITAMINS W/ FOLIC ACID TABLET (FP) PO SCH (10:05)
[2020-01-20] MEDS: LISINOPRIL 20 MG TABLET (FP) PO SCH (10:05)
[2020-01-20] MEDS: ASPIRIN 81 MG CHEWABLE TABLETS PO SCH (10:05)
[2020-01-20] MEDS: CARVEDILOL 25 MG TABLET (FP) PO SCH ×2 (10:06→21:34)
[2020-01-20] MEDS: NICOTINE POLACRILEX 2 MG GUM BUC PRN (10:07)
[2020-01-20] MEDS: BUDESONIDE/FORMETEROL FUMARATE 160/4.5 mcg INHALER IH SCH ×2 (10:48→21:34)
[2020-01-20] MEDS ORDERED: PT OWN MED DRAWER 7, Y5N ONE ×2 (11:09→21:35)
[2020-01-20] MEDS: MELATONIN 5 MG TABLETS PO PRN (21:34)
[2020-01-20] MEDS: THIAMINE HCL 100 MG TABLET (FP) PO SCH (21:34)
[2020-01-20] MEDS: ATORVASTATIN CA 40 MG TABLET (FP) PO SCH (21:34)
[2020-01-21] MEDS: METHADONE 40 MG, METHADONE 10 MG PO SCH (06:03)
[2020-01-21] MEDS ORDERED: METHADONE HCL 10 MG TABLET ONE (06:03)
[2020-01-21] MEDS ORDERED: METHADONE HCL 40 MG DISPERSABLE TABLET ONE (06:03)
[2020-01-21] MEDS: hydrALAZINE HCL 25 MG TABLET (FP) PO SCH ×3 (06:04→21:01)
[2020-01-21] MEDS: BUDESONIDE/FORMETEROL FUMARATE 160/4.5 mcg INHALER IH SCH ×2 (09:20→21:02)
[2020-01-21] MEDS: FUROSEMIDE 40 MG TABLET (FP) PO SCH (09:21)
[2020-01-21] MEDS: FERROUS SO4 325 MG TABLET (FP) PO SCH (09:21)
[2020-01-21] MEDS: ISOSORBIDE MONONITRATE 30 MG TAB.SR.24H (FP) PO SCH (09:21)
[2020-01-21] MEDS: ASPIRIN 81 MG CHEWABLE TABLETS PO SCH (09:21)
[2020-01-21] MEDS: LISINOPRIL 20 MG TABLET (FP) PO SCH (09:21)
[2020-01-21] MEDS: CARVEDILOL 25 MG TABLET (FP) PO SCH ×2 (09:22→21:02)
[2020-01-21] MEDS: SPIRONOLACTONE 25 MG TABLET (FP) PO SCH (09:22)
[2020-01-21] MEDS: PRENATAL VITAMINS W/ FOLIC ACID TABLET (FP) PO SCH (09:23)
[2020-01-21] MEDS: ATORVASTATIN CA 40 MG TABLET (FP) PO SCH (21:01)
[2020-01-21] MEDS: THIAMINE HCL 100 MG TABLET (FP) PO SCH (21:01)
[2020-01-21] MEDS: MELATONIN 5 MG TABLETS PO PRN (21:01)
[2020-01-21] MEDS: NICOTINE POLACRILEX 2 MG GUM BUC PRN (21:32)
[2020-01-22] MEDS ORDERED: METHADONE HCL 40 MG DISPERSABLE TABLET ONE (03:46)
[2020-01-22] MEDS ORDERED: METHADONE HCL 10 MG TABLET ONE (03:46)
[2020-01-22] MEDS: METHADONE 40 MG, METHADONE 10 MG PO SCH (06:18)
[2020-01-22] MEDS: hydrALAZINE HCL 25 MG TABLET (FP) PO SCH ×3 (06:18→22:01)
[2020-01-22] MEDS ORDERED: PT OWN MED DRAWER 7, Y5N ONE (08:41)
[2020-01-22] MEDS: SPIRONOLACTONE 25 MG TABLET (FP) PO SCH (10:01)
[2020-01-22] MEDS: FUROSEMIDE 40 MG TABLET (FP) PO SCH (10:01)
[2020-01-22] MEDS: ASPIRIN 81 MG CHEWABLE TABLETS PO SCH (10:01)
[2020-01-22] MEDS: ISOSORBIDE MONONITRATE 30 MG TAB.SR.24H (FP) PO SCH (10:01)
[2020-01-22] MEDS: FERROUS SO4 325 MG TABLET (FP) PO SCH (10:01)
[2020-01-22] MEDS: LISINOPRIL 20 MG TABLET (FP) PO SCH (10:02)
[2020-01-22] MEDS: BUDESONIDE/FORMETEROL FUMARATE 160/4.5 mcg INHALER IH SCH ×2 (10:02→21:58)
[2020-01-22] MEDS: PRENATAL VITAMINS W/ FOLIC ACID TABLET (FP) PO SCH (10:02)
[2020-01-22] MEDS: ERGOCALCIFEROL (VIT D2) 50,000 UNIT (1.25 MG) CAPSULE PO SCH (10:02)
[2020-01-22] MEDS: CARVEDILOL 25 MG TABLET (FP) PO SCH ×2 (10:02→22:00)
[2020-01-22] MEDS: NICOTINE POLACRILEX 2 MG GUM BUC PRN (10:04)
[2020-01-22] MEDS: THIAMINE HCL 100 MG TABLET (FP) PO SCH (21:56)
[2020-01-22] MEDS: ATORVASTATIN CA 40 MG TABLET (FP) PO SCH (21:56)
[2020-01-23] MEDS ORDERED: METHADONE HCL 40 MG DISPERSABLE TABLET ONE (05:20)
[2020-01-23] MEDS ORDERED: METHADONE HCL 10 MG TABLET ONE (05:20)
[2020-01-23] MEDS: METHADONE 40 MG, METHADONE 10 MG PO SCH (06:13)
[2020-01-23] MEDS: hydrALAZINE HCL 25 MG TABLET (FP) PO SCH ×3 (06:13→21:08)
[2020-01-23] MEDS: PRENATAL VITAMINS W/ FOLIC ACID TABLET (FP) PO SCH (10:19)
[2020-01-23] MEDS: FUROSEMIDE 40 MG TABLET (FP) PO SCH (10:20)
[2020-01-23] MEDS: FERROUS SO4 325 MG TABLET (FP) PO SCH (10:20)
[2020-01-23] MEDS: SPIRONOLACTONE 25 MG TABLET (FP) PO SCH (10:20)
[2020-01-23] MEDS: ISOSORBIDE MONONITRATE 30 MG TAB.SR.24H (FP) PO SCH (10:20)
[2020-01-23] MEDS: ASPIRIN 81 MG CHEWABLE TABLETS PO SCH (10:20)
[2020-01-23] MEDS: CARVEDILOL 25 MG TABLET (FP) PO SCH ×2 (10:20→21:08)
[2020-01-23] MEDS: LISINOPRIL 20 MG TABLET (FP) PO SCH (10:20)
[2020-01-23] MEDS: BUDESONIDE/FORMETEROL FUMARATE 160/4.5 mcg INHALER IH SCH ×2 (10:20→21:08)
[2020-01-23] MEDS: NICOTINE POLACRILEX 2 MG GUM BUC PRN (10:21)
[2020-01-23] MEDS: MAG HYDROX/AL HYDROX/SIMETH 30 ML UNIT-DOSE CUP PO PRN (10:24)
[2020-01-23] MEDS: NICOTINE POLACRILEX 4 MG GUM BUC PRN (14:17)
[2020-01-23] MEDS: ATORVASTATIN CA 40 MG TABLET (FP) PO SCH (21:08)
[2020-01-23] MEDS: THIAMINE HCL 100 MG TABLET (FP) PO SCH (21:08)
[2020-01-23] MEDS: MELATONIN 5 MG TABLETS PO PRN (21:08)
[2020-01-24] MEDS ORDERED: METHADONE HCL 10 MG TABLET ONE (05:31)
[2020-01-24] MEDS ORDERED: METHADONE HCL 40 MG DISPERSABLE TABLET ONE (05:32)
[2020-01-24] MEDS: METHADONE 40 MG, METHADONE 10 MG PO SCH (06:15)
[2020-01-24] MEDS: hydrALAZINE HCL 25 MG TABLET (FP) PO SCH ×3 (06:15→21:37)
[2020-01-24] MEDS: NICOTINE POLACRILEX 4 MG GUM BUC PRN ×2 (09:13→21:38)
[2020-01-24] MEDS: LISINOPRIL 20 MG TABLET (FP) PO SCH (09:56)
[2020-01-24] MEDS: FERROUS SO4 325 MG TABLET (FP) PO SCH (09:56)
[2020-01-24] MEDS: ASPIRIN 81 MG CHEWABLE TABLETS PO SCH (09:56)
[2020-01-24] MEDS: CARVEDILOL 25 MG TABLET (FP) PO SCH ×2 (09:57→21:38)
[2020-01-24] MEDS: FUROSEMIDE 40 MG TABLET (FP) PO SCH (09:57)
[2020-01-24] MEDS: SPIRONOLACTONE 25 MG TABLET (FP) PO SCH (09:57)
[2020-01-24] MEDS: ISOSORBIDE MONONITRATE 30 MG TAB.SR.24H (FP) PO SCH (09:57)
[2020-01-24] MEDS: PRENATAL VITAMINS W/ FOLIC ACID TABLET (FP) PO SCH (09:59)
[2020-01-24] MEDS: BUDESONIDE/FORMETEROL FUMARATE 160/4.5 mcg INHALER IH SCH ×2 (10:37→21:40)
[2020-01-24] MEDS: ATORVASTATIN CA 40 MG TABLET (FP) PO SCH (21:37)
[2020-01-24] MEDS: MELATONIN 5 MG TABLETS PO PRN (21:37)
[2020-01-24] MEDS: THIAMINE HCL 100 MG TABLET (FP) PO SCH (21:37)
[2020-01-25] MEDS ORDERED: METHADONE HCL 40 MG DISPERSABLE TABLET ONE (03:21)
[2020-01-25] MEDS ORDERED: METHADONE HCL 10 MG TABLET ONE (03:21)
[2020-01-25] MEDS: METHADONE 40 MG, METHADONE 10 MG PO SCH (06:21)
[2020-01-25] MEDS: hydrALAZINE HCL 25 MG TABLET (FP) PO SCH ×3 (06:21→21:08)
[2020-01-25] MEDS: CARVEDILOL 25 MG TABLET (FP) PO SCH ×2 (09:50→22:33)
[2020-01-25] MEDS: ASPIRIN 81 MG CHEWABLE TABLETS PO SCH (09:50)
[2020-01-25] MEDS: LISINOPRIL 20 MG TABLET (FP) PO SCH (09:50)
[2020-01-25] MEDS: FUROSEMIDE 40 MG TABLET (FP) PO SCH (09:51)
[2020-01-25] MEDS: ISOSORBIDE MONONITRATE 30 MG TAB.SR.24H (FP) PO SCH (09:51)
[2020-01-25] MEDS: FERROUS SO4 325 MG TABLET (FP) PO SCH (09:51)
[2020-01-25] MEDS: BUDESONIDE/FORMETEROL FUMARATE 160/4.5 mcg INHALER IH SCH ×2 (09:52→21:10)
[2020-01-25] MEDS: PRENATAL VITAMINS W/ FOLIC ACID TABLET (FP) PO SCH (09:52)
[2020-01-25] MEDS: SPIRONOLACTONE 25 MG TABLET (FP) PO SCH (09:52)
[2020-01-25] MEDS ORDERED: WITCH HAZEL 50% (TUCKS) 40 PAD/JAR PAD TP PRN (10:23)
[2020-01-25] MEDS: BENZOCAINE 28 GM HEMORRHOIDAL OINTMENT PR PRN (14:08)
[2020-01-25] MEDS ORDERED: PT OWN MED DRAWER 7, Y5N ONE ×2 (18:49→21:09)
[2020-01-25] MEDS: MELATONIN 5 MG TABLETS PO PRN (21:08)
[2020-01-25] MEDS: ATORVASTATIN CA 40 MG TABLET (FP) PO SCH (21:08)
[2020-01-25] MEDS: THIAMINE HCL 100 MG TABLET (FP) PO SCH (21:10)
[2020-01-25] MEDS: PRAMOXINE HCL/MINERAL OIL/ZNOX 30 GM TUBE RC SCH (22:33)
[2020-01-26] MEDS ORDERED: METHADONE HCL 10 MG TABLET ONE (05:02)
[2020-01-26] MEDS ORDERED: METHADONE HCL 40 MG DISPERSABLE TABLET ONE (05:02)
[2020-01-26] MEDS: hydrALAZINE HCL 25 MG TABLET (FP) PO SCH ×3 (06:29→21:29)
[2020-01-26] MEDS: METHADONE 40 MG, METHADONE 10 MG PO SCH (06:29)
[2020-01-26] MEDS: CARVEDILOL 25 MG TABLET (FP) PO SCH ×2 (09:42→21:29)
[2020-01-26] MEDS: PRENATAL VITAMINS W/ FOLIC ACID TABLET (FP) PO SCH ×2 (09:42→09:45)
[2020-01-26] MEDS: ASPIRIN 81 MG CHEWABLE TABLETS PO SCH (09:42)
[2020-01-26] MEDS: SPIRONOLACTONE 25 MG TABLET (FP) PO SCH (09:42)
[2020-01-26] MEDS: BUDESONIDE/FORMETEROL FUMARATE 160/4.5 mcg INHALER IH SCH ×2 (09:42→21:29)
[2020-01-26] MEDS: ISOSORBIDE MONONITRATE 30 MG TAB.SR.24H (FP) PO SCH (09:42)
[2020-01-26] MEDS: FUROSEMIDE 40 MG TABLET (FP) PO SCH (09:42)
[2020-01-26] MEDS: FERROUS SO4 325 MG TABLET (FP) PO SCH (09:42)
[2020-01-26] MEDS: LISINOPRIL 20 MG TABLET (FP) PO SCH (09:42)
[2020-01-26] MEDS: THIAMINE HCL 100 MG TABLET (FP) PO SCH (21:29)
[2020-01-26] MEDS: MELATONIN 5 MG TABLETS PO PRN (21:29)
[2020-01-26] MEDS: ATORVASTATIN CA 40 MG TABLET (FP) PO SCH (21:29)
[2020-01-26] MEDS: PRAMOXINE HCL/MINERAL OIL/ZNOX 30 GM TUBE RC SCH (21:29)
[2020-01-27] MEDS ORDERED: METHADONE HCL 10 MG TABLET ONE (05:28)
[2020-01-27] MEDS ORDERED: METHADONE HCL 40 MG DISPERSABLE TABLET ONE (05:28)
[2020-01-27] MEDS: hydrALAZINE HCL 25 MG TABLET (FP) PO SCH ×3 (05:56→22:20)
[2020-01-27] MEDS: METHADONE 40 MG, METHADONE 10 MG PO SCH (05:56)
[2020-01-27] MEDS: CARVEDILOL 25 MG TABLET (FP) PO SCH ×2 (09:37→22:20)
[2020-01-27] MEDS: FERROUS SO4 325 MG TABLET (FP) PO SCH (09:37)
[2020-01-27] MEDS: FUROSEMIDE 40 MG TABLET (FP) PO SCH (09:37)
[2020-01-27] MEDS: PRENATAL VITAMINS W/ FOLIC ACID TABLET (FP) PO SCH (09:37)
[2020-01-27] MEDS: LISINOPRIL 20 MG TABLET (FP) PO SCH (09:37)
[2020-01-27] MEDS: ISOSORBIDE MONONITRATE 30 MG TAB.SR.24H (FP) PO SCH (09:37)
[2020-01-27] MEDS: ASPIRIN 81 MG CHEWABLE TABLETS PO SCH (09:37)
[2020-01-27] MEDS: SPIRONOLACTONE 25 MG TABLET (FP) PO SCH (09:38)
[2020-01-27] MEDS: BUDESONIDE/FORMETEROL FUMARATE 160/4.5 mcg INHALER IH SCH ×2 (09:38→22:20)
[2020-01-27] MEDS ORDERED: PT OWN MED DRAWER 7, Y5N ONE (19:54)
[2020-01-27] MEDS: PRAMOXINE HCL/MINERAL OIL/ZNOX 30 GM TUBE RC SCH (22:19)
[2020-01-27] MEDS: ATORVASTATIN CA 40 MG TABLET (FP) PO SCH (22:20)
[2020-01-27] MEDS: THIAMINE HCL 100 MG TABLET (FP) PO SCH (22:20)
[2020-01-28] MEDS ORDERED: METHADONE HCL 10 MG TABLET ONE (05:34)
[2020-01-28] MEDS ORDERED: METHADONE HCL 40 MG DISPERSABLE TABLET ONE (05:34)
[2020-01-28] MEDS: METHADONE 40 MG, METHADONE 10 MG PO SCH (05:52)
[2020-01-28] MEDS: hydrALAZINE HCL 25 MG TABLET (FP) PO SCH ×3 (05:52→21:27)
[2020-01-28] MEDS: ISOSORBIDE MONONITRATE 30 MG TAB.SR.24H (FP) PO SCH (09:47)
[2020-01-28] MEDS: SPIRONOLACTONE 25 MG TABLET (FP) PO SCH (09:47)
[2020-01-28] MEDS: ASPIRIN 81 MG CHEWABLE TABLETS PO SCH (09:47)
[2020-01-28] MEDS: PRENATAL VITAMINS W/ FOLIC ACID TABLET (FP) PO SCH (09:48)
[2020-01-28] MEDS: CARVEDILOL 25 MG TABLET (FP) PO SCH ×2 (09:48→21:27)
[2020-01-28] MEDS: FUROSEMIDE 40 MG TABLET (FP) PO SCH (09:48)
[2020-01-28] MEDS: LISINOPRIL 20 MG TABLET (FP) PO SCH (09:48)
[2020-01-28] MEDS: FERROUS SO4 325 MG TABLET (FP) PO SCH (09:48)
[2020-01-28] MEDS: BUDESONIDE/FORMETEROL FUMARATE 160/4.5 mcg INHALER IH SCH ×2 (09:49→21:28)
[2020-01-28] MEDS: THIAMINE HCL 100 MG TABLET (FP) PO SCH (21:27)
[2020-01-28] MEDS: ATORVASTATIN CA 40 MG TABLET (FP) PO SCH (21:28)
[2020-01-28] MEDS: MELATONIN 5 MG TABLETS PO PRN (21:30)
[2020-01-28] MEDS: PRAMOXINE HCL/MINERAL OIL/ZNOX 30 GM TUBE RC SCH (22:24)
[2020-01-29] MEDS ORDERED: METHADONE HCL 40 MG DISPERSABLE TABLET ONE (05:41)
[2020-01-29] MEDS ORDERED: METHADONE HCL 10 MG TABLET ONE (05:41)
[2020-01-29] MEDS: hydrALAZINE HCL 25 MG TABLET (FP) PO SCH ×3 (06:30→21:00)
[2020-01-29] MEDS: METHADONE 40 MG, METHADONE 10 MG PO SCH (06:31)
[2020-01-29] MEDS: FERROUS SO4 325 MG TABLET (FP) PO SCH (09:50)
[2020-01-29] MEDS: BUDESONIDE/FORMETEROL FUMARATE 160/4.5 mcg INHALER IH SCH ×2 (09:50→21:01)
[2020-01-29] MEDS: ERGOCALCIFEROL (VIT D2) 50,000 UNIT (1.25 MG) CAPSULE PO SCH (09:50)
[2020-01-29] MEDS: LISINOPRIL 20 MG TABLET (FP) PO SCH (09:51)
[2020-01-29] MEDS: ASPIRIN 81 MG CHEWABLE TABLETS PO SCH (09:51)
[2020-01-29] MEDS: ISOSORBIDE MONONITRATE 30 MG TAB.SR.24H (FP) PO SCH (09:51)
[2020-01-29] MEDS: CARVEDILOL 25 MG TABLET (FP) PO SCH ×2 (09:51→21:00)
[2020-01-29] MEDS: SPIRONOLACTONE 25 MG TABLET (FP) PO SCH (09:51)
[2020-01-29] MEDS: FUROSEMIDE 40 MG TABLET (FP) PO SCH (09:52)
[2020-01-29] MEDS: PRENATAL VITAMINS W/ FOLIC ACID TABLET (FP) PO SCH (09:52)
[2020-01-29] MEDS: ATORVASTATIN CA 40 MG TABLET (FP) PO SCH (21:00)
[2020-01-29] MEDS: THIAMINE HCL 100 MG TABLET (FP) PO SCH (21:00)
[2020-01-29] MEDS: MELATONIN 5 MG TABLETS PO PRN (21:00)
[2020-01-30] MEDS ORDERED: METHADONE HCL 40 MG DISPERSABLE TABLET ONE (05:31)
[2020-01-30] MEDS ORDERED: METHADONE HCL 10 MG TABLET ONE (05:31)
[2020-01-30] MEDS: hydrALAZINE HCL 25 MG TABLET (FP) PO SCH ×3 (06:00→21:29)
[2020-01-30] MEDS: METHADONE 40 MG, METHADONE 10 MG PO SCH (06:11)
[2020-01-30] MEDS: PHENYLEPHRINE HCL/COCOA BUTTER SUPPOSITORY RC SCH (07:05)
[2020-01-30] MEDS ORDERED: PT OWN MED DRAWER 7, Y5N ONE (08:38)
[2020-01-30] MEDS: ASPIRIN 81 MG CHEWABLE TABLETS PO SCH (09:33)
[2020-01-30] MEDS: ISOSORBIDE MONONITRATE 30 MG TAB.SR.24H (FP) PO SCH (09:33)
[2020-01-30] MEDS: FERROUS SO4 325 MG TABLET (FP) PO SCH (09:33)
[2020-01-30] MEDS: SPIRONOLACTONE 25 MG TABLET (FP) PO SCH (09:34)
[2020-01-30] MEDS: PRENATAL VITAMINS W/ FOLIC ACID TABLET (FP) PO SCH (09:34)
[2020-01-30] MEDS: LISINOPRIL 20 MG TABLET (FP) PO SCH (09:34)
[2020-01-30] MEDS: FUROSEMIDE 40 MG TABLET (FP) PO SCH (09:35)
[2020-01-30] MEDS: BUDESONIDE/FORMETEROL FUMARATE 160/4.5 mcg INHALER IH SCH ×2 (09:35→21:29)
[2020-01-30] MEDS: CARVEDILOL 25 MG TABLET (FP) PO SCH ×2 (11:26→21:29)
[2020-01-30] MEDS: NICOTINE POLACRILEX 4 MG GUM BUC PRN (17:09)
[2020-01-30] MEDS: THIAMINE HCL 100 MG TABLET (FP) PO SCH (21:29)
[2020-01-30] MEDS: ATORVASTATIN CA 40 MG TABLET (FP) PO SCH (21:29)
[2020-01-30] MEDS: MELATONIN 5 MG TABLETS PO PRN (21:29)
[2020-01-31] MEDS ORDERED: METHADONE HCL 10 MG TABLET ONE (05:32)
[2020-01-31] MEDS ORDERED: METHADONE HCL 40 MG DISPERSABLE TABLET ONE (05:32)
[2020-01-31] MEDS: METHADONE 40 MG, METHADONE 10 MG PO SCH (05:40)
[2020-01-31] MEDS: hydrALAZINE HCL 25 MG TABLET (FP) PO SCH ×3 (05:40→21:01)
[2020-01-31] MEDS: PHENYLEPHRINE HCL/COCOA BUTTER SUPPOSITORY RC SCH (07:08)
[2020-01-31] MEDS: FUROSEMIDE 40 MG TABLET (FP) PO SCH (09:45)
[2020-01-31] MEDS: ISOSORBIDE MONONITRATE 30 MG TAB.SR.24H (FP) PO SCH (09:45)
[2020-01-31] MEDS: SPIRONOLACTONE 25 MG TABLET (FP) PO SCH (09:46)
[2020-01-31] MEDS: LISINOPRIL 20 MG TABLET (FP) PO SCH (09:46)
[2020-01-31] MEDS: PRENATAL VITAMINS W/ FOLIC ACID TABLET (FP) PO SCH (09:46)
[2020-01-31] MEDS: ASPIRIN 81 MG CHEWABLE TABLETS PO SCH (09:46)
[2020-01-31] MEDS: FERROUS SO4 325 MG TABLET (FP) PO SCH (09:48)
[2020-01-31] MEDS: CARVEDILOL 25 MG TABLET (FP) PO SCH ×2 (09:49→21:01)
[2020-01-31] MEDS: BUDESONIDE/FORMETEROL FUMARATE 160/4.5 mcg INHALER IH SCH ×2 (09:50→21:02)
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
[2020-01-31] MEDS: ATORVASTATIN CA 40 MG TABLET (FP) PO SCH (21:01)
[2020-01-31] MEDS: MELATONIN 5 MG TABLETS PO PRN (21:01)
[2020-01-31] MEDS: THIAMINE HCL 100 MG TABLET (FP) PO SCH (21:02)
[2020-01-31] MEDS: QUEtiapine FUMARATE 50 MG TABLET PO SCH (21:02)
[2020-02-01] MEDS ORDERED: METHADONE HCL 40 MG DISPERSABLE TABLET ONE (05:32)
[2020-02-01] MEDS ORDERED: METHADONE HCL 10 MG TABLET ONE (05:32)
[2020-02-01] MEDS: METHADONE 40 MG, METHADONE 10 MG PO SCH (07:10)
[2020-02-01] MEDS: PHENYLEPHRINE HCL/COCOA BUTTER SUPPOSITORY RC SCH (07:10)
[2020-02-01] MEDS: hydrALAZINE HCL 25 MG TABLET (FP) PO SCH ×3 (07:10→22:17)
[2020-02-01] MEDS: PRENATAL VITAMINS W/ FOLIC ACID TABLET (FP) PO SCH (09:37)
[2020-02-01] MEDS: FERROUS SO4 325 MG TABLET (FP) PO SCH (09:37)
[2020-02-01] MEDS: ASPIRIN 81 MG CHEWABLE TABLETS PO SCH (09:37)
[2020-02-01] MEDS: CARVEDILOL 25 MG TABLET (FP) PO SCH ×2 (09:37→22:17)
[2020-02-01] MEDS: ISOSORBIDE MONONITRATE 30 MG TAB.SR.24H (FP) PO SCH (09:37)
[2020-02-01] MEDS: FUROSEMIDE 40 MG TABLET (FP) PO SCH (09:37)
[2020-02-01] MEDS: LISINOPRIL 20 MG TABLET (FP) PO SCH (09:37)
[2020-02-01] MEDS: SPIRONOLACTONE 25 MG TABLET (FP) PO SCH (09:38)
[2020-02-01] MEDS: BUDESONIDE/FORMETEROL FUMARATE 160/4.5 mcg INHALER IH SCH ×2 (09:39→22:16)
[2020-02-01] MEDS: THIAMINE HCL 100 MG TABLET (FP) PO SCH (22:17)
[2020-02-01] MEDS: QUEtiapine FUMARATE 50 MG TABLET PO SCH (22:17)
[2020-02-01] MEDS: ATORVASTATIN CA 40 MG TABLET (FP) PO SCH (22:17)
[2020-02-02] MEDS ORDERED: METHADONE HCL 10 MG TABLET ONE (05:28)
[2020-02-02] MEDS ORDERED: METHADONE HCL 40 MG DISPERSABLE TABLET ONE (05:28)
[2020-02-02] MEDS: METHADONE 40 MG, METHADONE 10 MG PO SCH (06:06)
[2020-02-02] MEDS: hydrALAZINE HCL 25 MG TABLET (FP) PO SCH ×3 (06:07→21:03)
[2020-02-02] MEDS: PHENYLEPHRINE HCL/COCOA BUTTER SUPPOSITORY RC SCH (07:03)
[2020-02-02] MEDS: LISINOPRIL 20 MG TABLET (FP) PO SCH (09:37)
[2020-02-02] MEDS: FUROSEMIDE 40 MG TABLET (FP) PO SCH (09:38)
[2020-02-02] MEDS: BUDESONIDE/FORMETEROL FUMARATE 160/4.5 mcg INHALER IH SCH ×2 (09:38→21:04)
[2020-02-02] MEDS: CARVEDILOL 25 MG TABLET (FP) PO SCH ×2 (09:38→21:03)
[2020-02-02] MEDS: ISOSORBIDE MONONITRATE 30 MG TAB.SR.24H (FP) PO SCH (09:38)
[2020-02-02] MEDS: ASPIRIN 81 MG CHEWABLE TABLETS PO SCH (09:38)
[2020-02-02] MEDS: FERROUS SO4 325 MG TABLET (FP) PO SCH (09:38)
[2020-02-02] MEDS: SPIRONOLACTONE 25 MG TABLET (FP) PO SCH (09:38)
[2020-02-02] MEDS: PRENATAL VITAMINS W/ FOLIC ACID TABLET (FP) PO SCH (09:40)
[2020-02-02] MEDS: POLYETHYLENE GLYCOL 3350 119 GM BTL PO SCH ×2 (12:40→21:03)
[2020-02-02] MEDS: QUEtiapine FUMARATE 50 MG TABLET PO SCH (21:03)
[2020-02-02] MEDS: ATORVASTATIN CA 40 MG TABLET (FP) PO SCH (21:03)
[2020-02-02] MEDS: THIAMINE HCL 100 MG TABLET (FP) PO SCH (21:03)
[2020-02-02] MEDS: MELATONIN 5 MG TABLETS PO PRN (21:03)
[2020-02-03] MEDS ORDERED: METHADONE HCL 40 MG DISPERSABLE TABLET ONE (05:52)
[2020-02-03] MEDS ORDERED: METHADONE HCL 10 MG TABLET ONE (05:52)
[2020-02-03] MEDS: hydrALAZINE HCL 25 MG TABLET (FP) PO SCH ×3 (06:19→21:32)
[2020-02-03] MEDS: METHADONE 40 MG, METHADONE 10 MG PO SCH (06:20)
[2020-02-03] MEDS: LISINOPRIL 20 MG TABLET (FP) PO SCH (10:17)
[2020-02-03] MEDS: ASPIRIN 81 MG CHEWABLE TABLETS PO SCH (10:17)
[2020-02-03] MEDS: POLYETHYLENE GLYCOL 3350 119 GM BTL PO SCH ×2 (10:17→21:32)
[2020-02-03] MEDS: FERROUS SO4 325 MG TABLET (FP) PO SCH (10:17)
[2020-02-03] MEDS: ISOSORBIDE MONONITRATE 30 MG TAB.SR.24H (FP) PO SCH (10:18)
[2020-02-03] MEDS: SPIRONOLACTONE 25 MG TABLET (FP) PO SCH (10:18)
[2020-02-03] MEDS: FUROSEMIDE 40 MG TABLET (FP) PO SCH (10:18)
[2020-02-03] MEDS: CARVEDILOL 25 MG TABLET (FP) PO SCH ×2 (10:18→21:32)
[2020-02-03] MEDS: PRENATAL VITAMINS W/ FOLIC ACID TABLET (FP) PO SCH (10:18)
[2020-02-03] MEDS: PHENYLEPHRINE HCL/COCOA BUTTER SUPPOSITORY RC SCH (10:18)
[2020-02-03] MEDS: BUDESONIDE/FORMETEROL FUMARATE 160/4.5 mcg INHALER IH SCH ×2 (10:19→21:32)
[2020-02-03] MEDS: MAG HYDROX/AL HYDROX/SIMETH 30 ML UNIT-DOSE CUP PO PRN (15:16)
[2020-02-03] MEDS: ATORVASTATIN CA 40 MG TABLET (FP) PO SCH (21:31)
[2020-02-03] MEDS: QUEtiapine FUMARATE 50 MG TABLET PO SCH (21:31)
[2020-02-03] MEDS: THIAMINE HCL 100 MG TABLET (FP) PO SCH (21:31)
[2020-02-03] MEDS: MELATONIN 5 MG TABLETS PO PRN (21:31)
[2020-02-04] MEDS: hydrALAZINE HCL 25 MG TABLET (FP) PO SCH ×3 (05:43→21:05)
[2020-02-04] MEDS ORDERED: METHADONE HCL 10 MG TABLET ONE (05:44)
[2020-02-04] MEDS ORDERED: METHADONE HCL 40 MG DISPERSABLE TABLET ONE (05:44)
[2020-02-04] MEDS: METHADONE 40 MG, METHADONE 10 MG PO SCH (05:44)
[2020-02-04] MEDS: PHENYLEPHRINE HCL/COCOA BUTTER SUPPOSITORY RC SCH (07:04)
[2020-02-04] MEDS: POLYETHYLENE GLYCOL 3350 119 GM BTL PO SCH ×2 (09:19→21:05)
[2020-02-04] MEDS: SPIRONOLACTONE 25 MG TABLET (FP) PO SCH (09:20)
[2020-02-04] MEDS: BUDESONIDE/FORMETEROL FUMARATE 160/4.5 mcg INHALER IH SCH ×2 (09:20→21:06)
[2020-02-04] MEDS: FERROUS SO4 325 MG TABLET (FP) PO SCH (09:20)
[2020-02-04] MEDS: PRENATAL VITAMINS W/ FOLIC ACID TABLET (FP) PO SCH (09:21)
[2020-02-04] MEDS: CARVEDILOL 25 MG TABLET (FP) PO SCH ×2 (09:21→21:05)
[2020-02-04] MEDS: ASPIRIN 81 MG CHEWABLE TABLETS PO SCH (09:21)
[2020-02-04] MEDS: LISINOPRIL 20 MG TABLET (FP) PO SCH (09:21)
[2020-02-04] MEDS: FUROSEMIDE 40 MG TABLET (FP) PO SCH (09:21)
[2020-02-04] MEDS: ISOSORBIDE MONONITRATE 30 MG TAB.SR.24H (FP) PO SCH (09:21)
[2020-02-04] MEDS ORDERED: PT OWN MED DRAWER 7, Y5N ONE ×2 (10:29→18:55)
[2020-02-04] MEDS: NICOTINE POLACRILEX 4 MG GUM BUC PRN ×2 (10:59→17:32)
[2020-02-04] MEDS: QUEtiapine FUMARATE 50 MG TABLET PO SCH (21:05)
[2020-02-04] MEDS: THIAMINE HCL 100 MG TABLET (FP) PO SCH (21:05)
[2020-02-04] MEDS: ATORVASTATIN CA 40 MG TABLET (FP) PO SCH (21:05)
[2020-02-04] MEDS: MELATONIN 5 MG TABLETS PO PRN (21:05)
[2020-02-05] MEDS ORDERED: METHADONE HCL 10 MG TABLET ONE (05:31)
[2020-02-05] MEDS ORDERED: METHADONE HCL 40 MG DISPERSABLE TABLET ONE (05:31)
[2020-02-05] MEDS: METHADONE 40 MG, METHADONE 10 MG PO SCH (06:13)
[2020-02-05] MEDS: hydrALAZINE HCL 25 MG TABLET (FP) PO SCH ×3 (06:13→21:38)
[2020-02-05] MEDS: PHENYLEPHRINE HCL/COCOA BUTTER SUPPOSITORY RC SCH (07:42)
[2020-02-05] MEDS ORDERED: PT OWN MED DRAWER 7, Y5N ONE (08:31)
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
[2020-02-05] MEDS: CARVEDILOL 25 MG TABLET (FP) PO SCH ×2 (10:10→21:38)
[2020-02-05] MEDS: SPIRONOLACTONE 25 MG TABLET (FP) PO SCH (10:10)
[2020-02-05] MEDS: ASPIRIN 81 MG CHEWABLE TABLETS PO SCH (10:10)
[2020-02-05] MEDS: POLYETHYLENE GLYCOL 3350 119 GM BTL PO SCH ×2 (10:11→21:40)
[2020-02-05] MEDS: PRENATAL VITAMINS W/ FOLIC ACID TABLET (FP) PO SCH (10:11)
[2020-02-05] MEDS: FUROSEMIDE 40 MG TABLET (FP) PO SCH (10:11)
[2020-02-05] MEDS: FERROUS SO4 325 MG TABLET (FP) PO SCH (10:11)
[2020-02-05] MEDS: ISOSORBIDE MONONITRATE 30 MG TAB.SR.24H (FP) PO SCH (10:11)
[2020-02-05] MEDS: BUDESONIDE/FORMETEROL FUMARATE 160/4.5 mcg INHALER IH SCH ×2 (10:11→21:38)
[2020-02-05] MEDS: ERGOCALCIFEROL (VIT D2) 50,000 UNIT (1.25 MG) CAPSULE PO SCH (10:11)
[2020-02-05] MEDS: LISINOPRIL 20 MG TABLET (FP) PO SCH (10:11)
[2020-02-05] MEDS: NICOTINE POLACRILEX 4 MG GUM BUC PRN ×3 (13:42→21:40)
[2020-02-05] MEDS: MAG HYDROX/AL HYDROX/SIMETH 30 ML UNIT-DOSE CUP PO PRN (13:51)
[2020-02-05] MEDS: QUEtiapine FUMARATE 50 MG TABLET PO SCH (21:38)
[2020-02-05] MEDS: ATORVASTATIN CA 40 MG TABLET (FP) PO SCH (21:38)
[2020-02-05] MEDS: THIAMINE HCL 100 MG TABLET (FP) PO SCH (21:40)
[2020-02-06] MEDS ORDERED: METHADONE HCL 10 MG TABLET ONE (05:40)
[2020-02-06] MEDS ORDERED: METHADONE HCL 40 MG DISPERSABLE TABLET ONE (05:40)
[2020-02-06] MEDS: hydrALAZINE HCL 25 MG TABLET (FP) PO SCH ×3 (06:11→21:09)
[2020-02-06] MEDS: METHADONE 40 MG, METHADONE 10 MG PO SCH (06:11)
[2020-02-06] MEDS: PHENYLEPHRINE HCL/COCOA BUTTER SUPPOSITORY RC SCH (07:05)
[2020-02-06] MEDS: ASPIRIN 81 MG CHEWABLE TABLETS PO SCH (09:59)
[2020-02-06] MEDS: ISOSORBIDE MONONITRATE 30 MG TAB.SR.24H (FP) PO SCH (09:59)
[2020-02-06] MEDS: FERROUS SO4 325 MG TABLET (FP) PO SCH (09:59)
[2020-02-06] MEDS: SPIRONOLACTONE 25 MG TABLET (FP) PO SCH (09:59)
[2020-02-06] MEDS: POLYETHYLENE GLYCOL 3350 119 GM BTL PO SCH ×2 (09:59→21:09)
[2020-02-06] MEDS: FUROSEMIDE 40 MG TABLET (FP) PO SCH (09:59)
[2020-02-06] MEDS: CARVEDILOL 25 MG TABLET (FP) PO SCH ×2 (09:59→21:09)
[2020-02-06] MEDS: PRENATAL VITAMINS W/ FOLIC ACID TABLET (FP) PO SCH (10:02)
[2020-02-06] MEDS: LISINOPRIL 20 MG TABLET (FP) PO SCH (10:02)
[2020-02-06] MEDS: BUDESONIDE/FORMETEROL FUMARATE 160/4.5 mcg INHALER IH SCH ×2 (10:02→21:09)
[2020-02-06] MEDS: COLLOIDAL OATMEAL 1 BAR EACH TP PRN (14:35)
[2020-02-06] MEDS: ATORVASTATIN CA 40 MG TABLET (FP) PO SCH (21:09)
[2020-02-06] MEDS: THIAMINE HCL 100 MG TABLET (FP) PO SCH (21:09)
[2020-02-06] MEDS: MELATONIN 5 MG TABLETS PO PRN (21:09)
[2020-02-06] MEDS: QUEtiapine FUMARATE 50 MG TABLET PO SCH (21:09)
[2020-02-07] MEDS ORDERED: METHADONE HCL 40 MG DISPERSABLE TABLET ONE (05:34)
[2020-02-07] MEDS ORDERED: METHADONE HCL 10 MG TABLET ONE (05:34)
[2020-02-07] MEDS: hydrALAZINE HCL 25 MG TABLET (FP) PO SCH ×3 (06:20→21:23)
[2020-02-07] MEDS: METHADONE 40 MG, METHADONE 10 MG PO SCH (06:20)
[2020-02-07] MEDS: PHENYLEPHRINE HCL/COCOA BUTTER SUPPOSITORY RC SCH (07:49)
[2020-02-07] MEDS ORDERED: PT OWN MED DRAWER 7, Y5N ONE (08:53)
[2020-02-07] MEDS: SPIRONOLACTONE 25 MG TABLET (FP) PO SCH (10:00)
[2020-02-07] MEDS: PRENATAL VITAMINS W/ FOLIC ACID TABLET (FP) PO SCH (10:00)
[2020-02-07] MEDS: LISINOPRIL 20 MG TABLET (FP) PO SCH (10:00)
[2020-02-07] MEDS: FERROUS SO4 325 MG TABLET (FP) PO SCH (10:01)
[2020-02-07] MEDS: ASPIRIN 81 MG CHEWABLE TABLETS PO SCH (10:01)
[2020-02-07] MEDS: ISOSORBIDE MONONITRATE 30 MG TAB.SR.24H (FP) PO SCH (10:01)
[2020-02-07] MEDS: FUROSEMIDE 40 MG TABLET (FP) PO SCH (10:01)
[2020-02-07] MEDS: CARVEDILOL 25 MG TABLET (FP) PO SCH ×2 (10:01→21:23)
[2020-02-07] MEDS: POLYETHYLENE GLYCOL 3350 119 GM BTL PO SCH ×2 (10:14→21:24)
[2020-02-07] MEDS: BUDESONIDE/FORMETEROL FUMARATE 160/4.5 mcg INHALER IH SCH ×2 (10:14→21:24)
[2020-02-07] MEDS: NICOTINE POLACRILEX 4 MG GUM BUC PRN ×2 (15:32→18:01)
[2020-02-07] MEDS: ATORVASTATIN CA 40 MG TABLET (FP) PO SCH (21:23)
[2020-02-07] MEDS: MELATONIN 5 MG TABLETS PO PRN (21:23)
[2020-02-07] MEDS: THIAMINE HCL 100 MG TABLET (FP) PO SCH (21:23)
[2020-02-07] MEDS: QUEtiapine FUMARATE 50 MG TABLET PO SCH (21:23)
[2020-02-08] MEDS ORDERED: METHADONE HCL 40 MG DISPERSABLE TABLET ONE (05:54)
[2020-02-08] MEDS ORDERED: METHADONE HCL 10 MG TABLET ONE (05:54)
[2020-02-08] MEDS: hydrALAZINE HCL 25 MG TABLET (FP) PO SCH ×3 (06:09→21:24)
[2020-02-08] MEDS: METHADONE 40 MG, METHADONE 10 MG PO SCH (06:09)
[2020-02-08] MEDS: ASPIRIN 81 MG CHEWABLE TABLETS PO SCH (09:45)
[2020-02-08] MEDS: LISINOPRIL 20 MG TABLET (FP) PO SCH (09:45)
[2020-02-08] MEDS: FUROSEMIDE 40 MG TABLET (FP) PO SCH (09:45)
[2020-02-08] MEDS: PRENATAL VITAMINS W/ FOLIC ACID TABLET (FP) PO SCH (09:45)
[2020-02-08] MEDS: ISOSORBIDE MONONITRATE 30 MG TAB.SR.24H (FP) PO SCH (09:45)
[2020-02-08] MEDS: CARVEDILOL 25 MG TABLET (FP) PO SCH ×2 (09:45→21:24)
[2020-02-08] MEDS: FERROUS SO4 325 MG TABLET (FP) PO SCH (09:45)
[2020-02-08] MEDS: POLYETHYLENE GLYCOL 3350 119 GM BTL PO SCH ×2 (09:46→21:27)
[2020-02-08] MEDS: PHENYLEPHRINE HCL/COCOA BUTTER SUPPOSITORY RC SCH (09:46)
[2020-02-08] MEDS: BUDESONIDE/FORMETEROL FUMARATE 160/4.5 mcg INHALER IH SCH ×2 (09:46→21:27)
[2020-02-08] MEDS: SPIRONOLACTONE 25 MG TABLET (FP) PO SCH (09:46)
[2020-02-08] MEDS: NICOTINE POLACRILEX 4 MG GUM BUC PRN (10:41)
[2020-02-08] MEDS: THIAMINE HCL 100 MG TABLET (FP) PO SCH (21:24)
[2020-02-08] MEDS: QUEtiapine FUMARATE 50 MG TABLET PO SCH (21:24)
[2020-02-08] MEDS: ATORVASTATIN CA 40 MG TABLET (FP) PO SCH (21:24)
[2020-02-08] MEDS: MELATONIN 5 MG TABLETS PO PRN (21:25)
[2020-02-09] MEDS ORDERED: METHADONE HCL 10 MG TABLET ONE (05:41)
[2020-02-09] MEDS ORDERED: METHADONE HCL 40 MG DISPERSABLE TABLET ONE (05:41)
[2020-02-09] MEDS: METHADONE 40 MG, METHADONE 10 MG PO SCH (06:15)
[2020-02-09] MEDS: hydrALAZINE HCL 25 MG TABLET (FP) PO SCH ×3 (06:15→21:10)
[2020-02-09] MEDS: PHENYLEPHRINE HCL/COCOA BUTTER SUPPOSITORY RC SCH (08:20)
[2020-02-09] MEDS: CARVEDILOL 25 MG TABLET (FP) PO SCH ×2 (10:06→21:10)
[2020-02-09] MEDS: FERROUS SO4 325 MG TABLET (FP) PO SCH (10:06)
[2020-02-09] MEDS: ISOSORBIDE MONONITRATE 30 MG TAB.SR.24H (FP) PO SCH (10:06)
[2020-02-09] MEDS: SPIRONOLACTONE 25 MG TABLET (FP) PO SCH (10:06)
[2020-02-09] MEDS: FUROSEMIDE 40 MG TABLET (FP) PO SCH (10:06)
[2020-02-09] MEDS: ASPIRIN 81 MG CHEWABLE TABLETS PO SCH (10:06)
[2020-02-09] MEDS: LISINOPRIL 20 MG TABLET (FP) PO SCH (10:06)
[2020-02-09] MEDS: BUDESONIDE/FORMETEROL FUMARATE 160/4.5 mcg INHALER IH SCH ×2 (10:07→21:10)
[2020-02-09] MEDS: PRENATAL VITAMINS W/ FOLIC ACID TABLET (FP) PO SCH (10:07)
[2020-02-09] MEDS: POLYETHYLENE GLYCOL 3350 119 GM BTL PO SCH ×2 (10:07→21:10)
[2020-02-09] MEDS: ATORVASTATIN CA 40 MG TABLET (FP) PO SCH (21:10)
[2020-02-09] MEDS: QUEtiapine FUMARATE 50 MG TABLET PO SCH (21:10)
[2020-02-09] MEDS: THIAMINE HCL 100 MG TABLET (FP) PO SCH (21:10)
[2020-02-09] MEDS: MELATONIN 5 MG TABLETS PO PRN (21:11)
[2020-02-10] MEDS ORDERED: METHADONE HCL 10 MG TABLET ONE (05:32)
[2020-02-10] MEDS ORDERED: METHADONE HCL 40 MG DISPERSABLE TABLET ONE (05:33)
[2020-02-10] MEDS: METHADONE 40 MG, METHADONE 10 MG PO SCH (06:17)
[2020-02-10] MEDS: hydrALAZINE HCL 25 MG TABLET (FP) PO SCH ×3 (06:17→21:19)
[2020-02-10] MEDS: PHENYLEPHRINE HCL/COCOA BUTTER SUPPOSITORY RC SCH (07:18)
[2020-02-10] MEDS: FUROSEMIDE 40 MG TABLET (FP) PO SCH (09:50)
[2020-02-10] MEDS: ISOSORBIDE MONONITRATE 30 MG TAB.SR.24H (FP) PO SCH (09:50)
[2020-02-10] MEDS: SPIRONOLACTONE 25 MG TABLET (FP) PO SCH (09:50)
[2020-02-10] MEDS: LISINOPRIL 20 MG TABLET (FP) PO SCH (09:50)
[2020-02-10] MEDS: CARVEDILOL 25 MG TABLET (FP) PO SCH ×2 (09:50→21:19)
[2020-02-10] MEDS: PRENATAL VITAMINS W/ FOLIC ACID TABLET (FP) PO SCH (09:50)
[2020-02-10] MEDS: FERROUS SO4 325 MG TABLET (FP) PO SCH (09:50)
[2020-02-10] MEDS: ASPIRIN 81 MG CHEWABLE TABLETS PO SCH (09:50)
[2020-02-10] MEDS: POLYETHYLENE GLYCOL 3350 119 GM BTL PO SCH ×2 (09:51→21:20)
[2020-02-10] MEDS: BUDESONIDE/FORMETEROL FUMARATE 160/4.5 mcg INHALER IH SCH ×2 (09:51→21:20)
[2020-02-10] MEDS: NICOTINE POLACRILEX 4 MG GUM BUC PRN (12:45)
[2020-02-10] MEDS: THIAMINE HCL 100 MG TABLET (FP) PO SCH (21:19)
[2020-02-10] MEDS: MELATONIN 5 MG TABLETS PO PRN (21:19)
[2020-02-10] MEDS: ATORVASTATIN CA 40 MG TABLET (FP) PO SCH (21:19)
[2020-02-10] MEDS: QUEtiapine FUMARATE 50 MG TABLET PO SCH (21:19)
[2020-02-11] MEDS ORDERED: METHADONE HCL 40 MG DISPERSABLE TABLET ONE (05:37)
[2020-02-11] MEDS ORDERED: METHADONE HCL 10 MG TABLET ONE (05:37)
[2020-02-11] MEDS: hydrALAZINE HCL 25 MG TABLET (FP) PO SCH ×3 (06:05→21:17)
[2020-02-11] MEDS: METHADONE 40 MG, METHADONE 10 MG PO SCH (06:05)
[2020-02-11] MEDS: PHENYLEPHRINE HCL/COCOA BUTTER SUPPOSITORY RC SCH (07:21)
[2020-02-11] MEDS: CARVEDILOL 25 MG TABLET (FP) PO SCH ×2 (10:15→21:17)
[2020-02-11] MEDS: ISOSORBIDE MONONITRATE 30 MG TAB.SR.24H (FP) PO SCH (10:15)
[2020-02-11] MEDS: FERROUS SO4 325 MG TABLET (FP) PO SCH (10:15)
[2020-02-11] MEDS: LISINOPRIL 20 MG TABLET (FP) PO SCH (10:15)
[2020-02-11] MEDS: ASPIRIN 81 MG CHEWABLE TABLETS PO SCH (10:15)
[2020-02-11] MEDS: SPIRONOLACTONE 25 MG TABLET (FP) PO SCH (10:15)
[2020-02-11] MEDS: FUROSEMIDE 40 MG TABLET (FP) PO SCH (10:15)
[2020-02-11] MEDS: BUDESONIDE/FORMETEROL FUMARATE 160/4.5 mcg INHALER IH SCH ×2 (10:17→21:18)
[2020-02-11] MEDS: POLYETHYLENE GLYCOL 3350 119 GM BTL PO SCH ×2 (10:17→21:18)
[2020-02-11] MEDS: PRENATAL VITAMINS W/ FOLIC ACID TABLET (FP) PO SCH (10:17)
[2020-02-11] MEDS: QUEtiapine FUMARATE 50 MG TABLET PO SCH (21:17)
[2020-02-11] MEDS: ATORVASTATIN CA 40 MG TABLET (FP) PO SCH (21:17)
[2020-02-11] MEDS: THIAMINE HCL 100 MG TABLET (FP) PO SCH (21:17)
[2020-02-11] MEDS: MELATONIN 5 MG TABLETS PO PRN (21:17)
[2020-02-12] MEDS ORDERED: METHADONE HCL 10 MG TABLET ONE (05:35)
[2020-02-12] MEDS ORDERED: METHADONE HCL 40 MG DISPERSABLE TABLET ONE (05:36)
[2020-02-12] MEDS: METHADONE 40 MG, METHADONE 10 MG PO SCH (06:11)
[2020-02-12] MEDS: hydrALAZINE HCL 25 MG TABLET (FP) PO SCH ×3 (06:11→21:27)
[2020-02-12] MEDS: PHENYLEPHRINE HCL/COCOA BUTTER SUPPOSITORY RC SCH (07:21)
[2020-02-12] MEDS: PRENATAL VITAMINS W/ FOLIC ACID TABLET (FP) PO SCH (10:13)
[2020-02-12] MEDS: FERROUS SO4 325 MG TABLET (FP) PO SCH (10:13)
[2020-02-12] MEDS: LISINOPRIL 20 MG TABLET (FP) PO SCH (10:13)
[2020-02-12] MEDS: ERGOCALCIFEROL (VIT D2) 50,000 UNIT (1.25 MG) CAPSULE PO SCH (10:13)
[2020-02-12] MEDS: ASPIRIN 81 MG CHEWABLE TABLETS PO SCH (10:13)
[2020-02-12] MEDS: CARVEDILOL 25 MG TABLET (FP) PO SCH ×2 (10:13→21:27)
[2020-02-12] MEDS: FUROSEMIDE 40 MG TABLET (FP) PO SCH (10:14)
[2020-02-12] MEDS: ISOSORBIDE MONONITRATE 30 MG TAB.SR.24H (FP) PO SCH (10:14)
[2020-02-12] MEDS: SPIRONOLACTONE 25 MG TABLET (FP) PO SCH (10:14)
[2020-02-12] MEDS: BUDESONIDE/FORMETEROL FUMARATE 160/4.5 mcg INHALER IH SCH ×2 (10:17→21:28)
[2020-02-12] MEDS: POLYETHYLENE GLYCOL 3350 119 GM BTL PO SCH ×2 (10:17→21:28)
--- NOTE | 2020-02-12 13:34 | DS ---
[facility] Rehab Discharge Summary - [facility] Rehab Discharge Summary Admission Date: 01/16/20 Discharge Date: 02/12/20 - History Present History: Alcohol dependence, Cocaine dependence, Opioid dependence - Discharge Physical Exam Vital Signs: Vital Signs Temperature 97.8 F 02/12/20 06:55 Pulse Rate 60 02/12/20 08:36 Respiratory Rate 18 02/12/20 08:36 Blood Pressure 136/71 02/12/20 08:36 O2 Sat by Pulse Oximetry (%) Laboratory Tests 01/18/20 02/05/20 02/06/20 06:12 11:00 09:00 POC Glucometer 92 Hep C Ab Diagnostic <0.1 HIV Ag/Ab Combo Qual Negative ROS: DENIES ALCOHOL/OPIOD CRAVINGS, SHAKES, SWEATING AND BODY ACHES PE: ALERT AND ORIENTED X 3 SKIN WARM AND DRY IN NAD +PERRLA, EOMS INTACT BL EXT FULL ROM, AMB AD ARSEN NO TREMORS DENIES SI/HI A/P: ALCOHOL/OPIOD CRAVINGS HTN CHF ASTHMA HLD PATIENT MEDICALLY STABLE AT THIS TIME FOR D/C TOMORROW MORNING PATIENT REPORTS HE HAS INHALERS AND MEDICATION IN HIS PERSONAL BELONGINGS - Treatment Discharge Condition: Outpatient referral accepted Hospital Course: PATIENT COMPLETES REHAB IN THE MORNING. ATTENDED ALL GROUP MEETINGS, 1:1 SESSIONS WITH COUNSELOR AND EVALUATED AND TREATED BY PSYCH TEAM. PATIENT HAS AFTERCARE ARRANGED FOR [facility] IN [place], [place]. HE CONTINUES ON MMTP AND IS MEDICALLY STABLE AT THIS TIME. NO SI/HI REPORTED. PATIENT STATES HE IS MOTIVATED TO MAINTAIN SOBRIETY AND HAS ALL MEDICATION IN HIS BELONGINGS. PATIENT HAS URINE CULTURE PENDING AND IS AWARE THAT RESULTS ARE UNAVAILABLE. PATIENT STATES HE WILL HAVE COUNSELOR FROM [facility] CONTACT FACILITY FOR RESULTS AFTER HIS ARRIVAL AND SIGNING OF RELEASE. HE DOES NOT WANT TO WAIT FOR RESULTS AND RISK LOSING HIS BED. - Medication Discharge Medications: Ambulatory Orders Aspirin 81 mg PO DAILY 03/16/19 Atorvastatin Ca [Lipitor] 40 mg PO HS 03/16/19 Furosemide [Lasix -] 40 mg PO DAILY 03/16/19 Lisinopril [Zestril] 40 mg PO DAILY 03/16/19 Carvedilol [Coreg -] 25 mg PO BID 01/11/20 Ergocalciferol [Vitamin D2] 50,000 unit PO WEEKLY 01/11/20 Ferrous Sulfate 325 mg PO DAILY 01/11/20 Hydralazine HCl 25 mg PO Q8H 01/11/20 Isosorbide Mononitrate [Imdur -] 30 mg PO DAILY 01/11/20 Spironolactone 12.5 mg PO DAILY 01/11/20 Albuterol Sulfate Inhaler - [Ventolin HFA Inhaler -] 2 inh PO Q4H PRN #1 inhaler 01/15/20 Budesonide/Formeterol Fumarate [SYMBICORT 160/4.5mcg -] 1 inh PO BID #1 inhaler 01/15/20 - Medication-Assisted Treatment (MAT) Medication-Assisted Treatment (MAT): Yes MAT Follow-up Referral: MMTP - Discharge Instructions Diet, activity, other medical instructions: Diet: TRE TOLERATED Activity: TOLERATED Other medical instructions: F/U WITH PCP RECOMMENDED - Follow-up Referral Minutes to complete discharge: 35 - AMA Did Patient Leave Against Medical Advice: No
[2020-02-12] MEDS: COLLOIDAL OATMEAL 1 BAR EACH TP PRN (13:39)
[2020-02-12] MEDS: MELATONIN 5 MG TABLETS PO PRN (21:27)
[2020-02-12] MEDS: QUEtiapine FUMARATE 50 MG TABLET PO SCH (21:27)
[2020-02-12] MEDS: THIAMINE HCL 100 MG TABLET (FP) PO SCH (21:27)
[2020-02-12] MEDS: ATORVASTATIN CA 40 MG TABLET (FP) PO SCH (21:27)
[2020-02-13] MEDS: hydrALAZINE HCL 25 MG TABLET (FP) PO SCH (06:07)
--- NOTE | 2020-02-13 06:18 | PN ---
[facility] Progress Note Note: Patient is scheduled for discharge today. Script for 30 days supply of Seroquel 50 mg/hs is electronically transmitted to [facility] [address] [id number]
[2020-02-13 06:57] VITALS: BP 143/69; PULSE 57; TEMP 97.7
[2020-02-13] MEDS ORDERED: METHADONE HCL 40 MG DISPERSABLE TABLET ONE (06:58)
[2020-02-13] MEDS ORDERED: METHADONE HCL 10 MG TABLET ONE (06:58)
[2020-02-13] MEDS ORDERED: METHADONE HCL 10 MG TABLET PO SCH (07:00)
[2020-02-13] MEDS ORDERED: METHADONE 40 MG, METHADONE 10 MG PO SCH (07:00)
[2020-02-13] MEDS: PHENYLEPHRINE HCL/COCOA BUTTER SUPPOSITORY RC SCH (07:11)
== END 2020-02-13 07:10 | disposition home or self-care (01) | DRG 772 ==
LOC: YASAS 12:12 → Y3W 12:13
PROVIDERS: ADMIT Allergy & Immunology; ATTEND Allergy & Immunology
PROC: HZ42ZZZ Group Counseling for Substance Abuse Treatment, Cognitive-Behavioral (ICD-10-PCS; principal; 2020-01-16)
DX: F10.20 Alcohol dependence, uncomplicated (principal); F11.20 Opioid dependence, uncomplicated; F14.20 Cocaine dependence, uncomplicated; F17.213 Nicotine dependence, cigarettes, with withdrawal; I25.10 Atherosclerotic heart disease of native coronary artery without angina pectoris; I11.0 Hypertensive heart disease with heart failure; I50.9 Heart failure, unspecified; J45.909 Unspecified asthma, uncomplicated; G47.00 Insomnia, unspecified; E78.5 Hyperlipidemia, unspecified
CPT/HCPCS: 36415; 82962; 86803; 87389; 87491; 87591; 87661

== ENCOUNTER 2020-10-30 15:54 | Inpatient (IN) | payer OTHER ==
[2020-10-30 17:59] LABS: BASO % 0.5 % (0-2.0); EOS % 1.5 % (0-4.5); HEMATOCRIT 48.1 % (35.4-49); HEMOGLOBIN 14.8 GM/dL (11.7-16.9); LYMPH % 14.6 % (8-40); MCHC 30.7 g/dl (32.0-35.9); MEAN PLT VOLUME 9.9 fl (7.5-11.1); MONO % 12.9 % (3.8-10.2); NEUT % 70.5 % (42.8-82.8); PLATELET COUNT 254 K/MM3 (134-434); RBC 5.28 M/mm3 (4.00-5.60); WHITE BLOOD COUNT 10.5 K/mm3 (4.0-10.0)
[2020-10-30 18:29] LABS: POTASSIUM 4.8 mmol/L (3.5-5.1)
[2020-10-30 18:31] LABS: ALBUMIN 2.7 g/dl (3.4-5.0); BLOOD UREA NITROGEN 56.1 mg/dL (7-18); CALCIUM 8.6 mg/dL (8.5-10.1)
[2020-10-30 18:35] LABS: CREATININE 2.1 mg/dL (0.55-1.3)
[2020-10-30 18:36] LABS: BILIRUBIN,TOTAL 0.4 mg/dL (0.2-1); TOT PROT 7.6 g/dl (6.4-8.2)
[2020-10-30] MEDS ORDERED: SODIUM CHLORIDE 0.9% 500 ML INFUS.BAG IV ONE (18:39)
[2020-10-30] MEDS ORDERED: VANCOMYCIN 1 GM in D5W (PRE-DOCKED) 1,000 MG/250 ML IVPB ONE (19:06)
[2020-10-30] MEDS ORDERED: VANCOMYCIN 1 GRAM (PRE-DOCKED) 1,000 MG/250 ML BAG IVPB ONE (20:01)
[2020-10-30 22:58] LABS: BASO % 0.9 % (0-2.0); HEMATOCRIT 42.4 % (35.4-49); LYMPH % 19.1 % (8-40); MCH 28.1 pg (25.7-33.7); MCHC 30.5 g/dl (32.0-35.9); MEAN CELL VOLUME 92.1 fl (80-96); MONO % 16.1 % (3.8-10.2); NEUT % 61.9 % (42.8-82.8); PLATELET COUNT 200 K/MM3 (134-434); RBC 4.61 M/mm3 (4.00-5.60); RDW 15.5 % (11.9-15.9); WHITE BLOOD COUNT 10.1 K/mm3 (4.0-10.0)
[2020-10-30 23:17] LABS: POTASSIUM 4.7 mmol/L (3.5-5.1)
[2020-10-30 23:19] LABS: BLOOD UREA NITROGEN 55.4 mg/dL (7-18); CALCIUM 7.4 mg/dL (8.5-10.1); MAGNESIUM 2.2 mg/dL (1.8-2.4)
[2020-10-30 23:23] LABS: CREATININE 1.9 mg/dL (0.55-1.3); PHOSPHOROUS 4.9 mg/dL (2.5-4.9)
[2020-10-31] MEDS ORDERED: FOLIC ACID INJECTION - 1 MG, THIAMINE HCL 100 MG, MULTIVIT INJECTION ADULT 10 ML in SOD... IVPB ONE ×3 (01:00→16:17)
[2020-10-31 04:56] LABS: PH,URINE 5.5 (5.0-8.0); URINE APPEARANCE CLEAR; URINE BILIRUBIN NEGATIVE (NEGATIVE); URINE COLOR YELLOW; URINE GLUCOSE (UA) NEGATIVE (NEGATIVE); URINE KETONE NEGATIVE (NEGATIVE); URINE LEUK ESTERASE NEGATIVE (NEGATIVE); URINE NITRITE NEGATIVE (NEGATIVE); URINE PROTEIN NEGATIVE (NEGATIVE)
[2020-10-31 05:02] LABS: OPIATES, URI NEGATIVE ng/ml (CUTOFF=300); URINE BARBITURATES NEGATIVE ng/ml (CUTOFF=200); URINE BENZODIAZEPINES NEGATIVE ng/ml (CUTOFF=200)
[2020-10-31 05:03] LABS: PHENCYCLIDINE,URINE NEGATIVE ng/ml (CUTOFF=25)
[2020-10-31 05:08] LABS: URINE AMPHETAMINES NEGATIVE ng/ml (CUTOFF=500)
[2020-10-31 05:10] LABS: COCAINE, UR POSITIVE ng/ml (CUTOFF=300); METHADONE, UR POSITIVE ng/ml (CUTOFF=300)
[2020-10-31 07:54] LABS: POTASSIUM 4.5 mmol/L (3.5-5.1)
[2020-10-31 08:04] LABS: ALBUMIN 2.2 g/dl (3.4-5.0); BLOOD UREA NITROGEN 48.8 mg/dL (7-18)
[2020-10-31 08:06] LABS: CREATININE 1.4 mg/dL (0.55-1.3); PHOSPHOROUS 4.2 mg/dL (2.5-4.9)
[2020-10-31 08:07] LABS: HEMATOCRIT 42.9 % (35.4-49); MCH 27.8 pg (25.7-33.7); MCHC 30.4 g/dl (32.0-35.9); MEAN CELL VOLUME 91.5 fl (80-96); MEAN PLT VOLUME 10.5 fl (7.5-11.1); PLATELET COUNT 214 K/MM3 (134-434); RBC 4.69 M/mm3 (4.00-5.60); RDW 15.4 % (11.9-15.9); WHITE BLOOD COUNT 9.7 K/mm3 (4.0-10.0)
[2020-10-31 08:08] LABS: BILIRUBIN,TOTAL 0.4 mg/dL (0.2-1); TOT PROT 6.4 g/dl (6.4-8.2)
[2020-10-31 08:09] LABS: MAGNESIUM 2.3 mg/dL (1.8-2.4)
[2020-10-31] MEDS ORDERED: VANCOMYCIN 750 MG in DEXTROSE 5%-WATER - 250 ML IVPB SCH (11:00)
[2020-10-31] MEDS ORDERED: VANCOMYCIN 1 GM in D5W (PRE-DOCKED) 1,000 MG/250 ML IVPB SCH (11:00)
[2020-10-31] MEDS: ENOXAPARIN NA (PORCINE) 40 MG/0.4 ML DISP.SYRIN SQ SCH (11:17)
[2020-10-31] MEDS ORDERED: THIAMINE HCL 100 MG TABLET (FP) ONE (11:19)
[2020-10-31] MEDS ORDERED: ASPIRIN 81 MG CHEWABLE TABLETS ONE (11:19)
[2020-10-31] MEDS: THIAMINE HCL 100 MG TABLET (FP) PO SCH ×3 (11:30→21:29)
[2020-10-31] MEDS: ASPIRIN 81 MG CHEWABLE TABLETS PO SCH (11:31)
[2020-10-31] MEDS: CYANOCOBALAMIN (VITAMIN B-12) 100 MCG TABLET PO SCH (15:12)
[2020-10-31] MEDS: BUDESONIDE/FORMETEROL FUMARATE 160/4.5 mcg INHALER IH SCH ×2 (15:12→22:16)
[2020-10-31] MEDS ORDERED: DEXTROSE 5%-WATER - 50 ML IVPB ONE ×2 (15:37→20:03)
[2020-10-31] MEDS ORDERED: PIPERACILLIN/TAZOBACTAM 3.375 GM VIAL IVPB ONE ×2 (15:37→20:03)
[2020-10-31] MEDS: PIPERACILLIN/TAZOB 3.375 GM 3.375 GM in DEXTROSE 5%-WATER - 50 ML IVPB SCH ×2 (15:39→20:04)
[2020-10-31 16:00] VITALS: BMI 29.0
[2020-10-31] MEDS: FOLIC ACID 1 MG TABLET (FP) PO SCH (17:34)
[2020-10-31] MEDS: MULTIVITAMINS (DAILY MVI) TABLET (FP) PO SCH (17:34)
[2020-10-31] MEDS ORDERED: METHADONE HCL 10 MG TABLET (FOR DETOX USE ONLY) PO ONE (19:47)
[2020-10-31] MEDS ORDERED: METHADONE 10 MG, METHADONE 40 MG PO ONE (20:00)
[2020-10-31] MEDS ORDERED: METHADONE HCL 10 MG TABLET ONE (20:02)
[2020-10-31] MEDS ORDERED: METHADONE HCL 40 MG DISPERSABLE TABLET ONE (20:02)
[2020-11-01] MEDS ORDERED: PIPERACILLIN/TAZOBACTAM 3.375 GM VIAL IVPB ONE ×3 (01:01→17:59)
[2020-11-01] MEDS ORDERED: DEXTROSE 5%-WATER - 50 ML IVPB ONE ×3 (01:01→17:59)
[2020-11-01] MEDS: PIPERACILLIN/TAZOB 3.375 GM 3.375 GM in DEXTROSE 5%-WATER - 50 ML IVPB SCH ×3 (01:04→18:10)
[2020-11-01 08:10] LABS: BASO % 0.5 % (0-2.0); EOS % 3.1 % (0-4.5); HEMATOCRIT 42.6 % (35.4-49); HEMOGLOBIN 12.6 GM/dL (11.7-16.9); LYMPH % 33.3 % (8-40); MCH 27.2 pg (25.7-33.7); MCHC 29.7 g/dl (32.0-35.9); MEAN CELL VOLUME 91.7 fl (80-96); MEAN PLT VOLUME 9.9 fl (7.5-11.1); MONO % 15.8 % (3.8-10.2); NEUT % 47.3 % (42.8-82.8); PLATELET COUNT 210 K/MM3 (134-434); POTASSIUM 4.6 mmol/L (3.5-5.1); RBC 4.64 M/mm3 (4.00-5.60); RDW 15.7 % (11.9-15.9); WHITE BLOOD COUNT 8.1 K/mm3 (4.0-10.0)
[2020-11-01 08:12] LABS: CALCIUM 8.2 mg/dL (8.5-10.1); INR 1.03 (0.83-1.09); PROTHROMBIN TIME (PATIENT) 12.4 SEC (9.7-13.0)
[2020-11-01 08:13] LABS: ALBUMIN 2.3 g/dl (3.4-5.0); BLOOD UREA NITROGEN 30.2 mg/dL (7-18); MAGNESIUM 2.2 mg/dL (1.8-2.4)
[2020-11-01 08:16] LABS: PHOSPHOROUS 3.5 mg/dL (2.5-4.9)
[2020-11-01 08:17] LABS: TOT PROT 6.5 g/dl (6.4-8.2)
[2020-11-01 08:19] LABS: BILIRUBIN,TOTAL 0.7 mg/dL (0.2-1)
[2020-11-01] MEDS ORDERED: PT OWN MED DRAWER 7, Y5N ONE (09:54)
[2020-11-01] MEDS: MULTIVITAMINS (DAILY MVI) TABLET (FP) PO SCH (10:16)
[2020-11-01] MEDS: CYANOCOBALAMIN (VITAMIN B-12) 100 MCG TABLET PO SCH (10:16)
[2020-11-01] MEDS: ASPIRIN 81 MG CHEWABLE TABLETS PO SCH (10:16)
[2020-11-01] MEDS: THIAMINE HCL 100 MG TABLET (FP) PO SCH ×2 (10:16→21:31)
[2020-11-01] MEDS: ENOXAPARIN NA (PORCINE) 40 MG/0.4 ML DISP.SYRIN SQ SCH (10:16)
[2020-11-01] MEDS: FOLIC ACID 1 MG TABLET (FP) PO SCH (10:16)
[2020-11-01] MEDS: BUDESONIDE/FORMETEROL FUMARATE 160/4.5 mcg INHALER IH SCH ×2 (10:18→21:40)
[2020-11-01] MEDS ORDERED: METHADONE HCL 10 MG TABLET PO SCH (13:00)
[2020-11-01] MEDS ORDERED: METHADONE HCL 10 MG TABLET ONE (14:26)
[2020-11-01] MEDS ORDERED: METHADONE HCL 40 MG DISPERSABLE TABLET ONE (14:27)
[2020-11-01] MEDS: METHADONE 40 MG, METHADONE 20 MG PO SCH (14:40)
[2020-11-01] MEDS: VANCOMYCIN HCL 1,250 MG in DEXTROSE 5%-WATER - 250 ML IVPB SCH (14:44)
[2020-11-02] MEDS ORDERED: PIPERACILLIN/TAZOBACTAM 3.375 GM VIAL IVPB ONE ×2 (01:27→09:41)
[2020-11-02] MEDS ORDERED: DEXTROSE 5%-WATER - 50 ML IVPB ONE ×2 (01:27→09:41)
[2020-11-02] MEDS: PIPERACILLIN/TAZOB 3.375 GM 3.375 GM in DEXTROSE 5%-WATER - 50 ML IVPB SCH ×2 (01:49→10:03)
[2020-11-02] MEDS ORDERED: METHADONE HCL 10 MG TABLET ONE (06:19)
[2020-11-02] MEDS ORDERED: METHADONE HCL 40 MG DISPERSABLE TABLET ONE (06:19)
[2020-11-02] MEDS: METHADONE 40 MG, METHADONE 20 MG PO SCH (06:22)
[2020-11-02 09:21] LABS: BASO % 0.5 % (0-2.0); EOS % 2.7 % (0-4.5); HEMATOCRIT 42.8 % (35.4-49); HEMOGLOBIN 13.2 GM/dL (11.7-16.9); LYMPH % 28.9 % (8-40); MCH 28.4 pg (25.7-33.7); MCHC 30.8 g/dl (32.0-35.9); MEAN CELL VOLUME 92.4 fl (80-96); MONO % 13.4 % (3.8-10.2); NEUT % 54.5 % (42.8-82.8); PLATELET COUNT 219 K/MM3 (134-434); RBC 4.64 M/mm3 (4.00-5.60); RDW 15.5 % (11.9-15.9); WHITE BLOOD COUNT 8.4 K/mm3 (4.0-10.0)
[2020-11-02] MEDS: ENOXAPARIN NA (PORCINE) 40 MG/0.4 ML DISP.SYRIN SQ SCH (10:03)
[2020-11-02] MEDS: CYANOCOBALAMIN (VITAMIN B-12) 100 MCG TABLET PO SCH (10:03)
[2020-11-02] MEDS: ASPIRIN 81 MG CHEWABLE TABLETS PO SCH (10:03)
[2020-11-02] MEDS: THIAMINE HCL 100 MG TABLET (FP) PO SCH ×2 (10:03→21:14)
[2020-11-02] MEDS: FOLIC ACID 1 MG TABLET (FP) PO SCH (10:03)
[2020-11-02] MEDS: MULTIVITAMINS (DAILY MVI) TABLET (FP) PO SCH (10:03)
[2020-11-02 10:05] LABS: POTASSIUM 4.7 mmol/L (3.5-5.1)
[2020-11-02] MEDS: BUDESONIDE/FORMETEROL FUMARATE 160/4.5 mcg INHALER IH SCH ×2 (10:05→21:15)
[2020-11-02 10:17] LABS: ALBUMIN 2.4 g/dl (3.4-5.0); CALCIUM 8.2 mg/dL (8.5-10.1); MAGNESIUM 2.1 mg/dL (1.8-2.4)
[2020-11-02 10:20] LABS: PHOSPHOROUS 3.3 mg/dL (2.5-4.9)
[2020-11-02 10:21] LABS: BILIRUBIN,TOTAL 0.7 mg/dL (0.2-1)
[2020-11-02] MEDS ORDERED: PT OWN MED DRAWER 7, Y5N ONE (13:04)
[2020-11-02] MEDS: VANCOMYCIN HCL 1,250 MG in DEXTROSE 5%-WATER - 250 ML IVPB SCH (13:16)
[2020-11-02] MEDS: VANCOMYCIN 1 GRAM (PRE-DOCKED) 1,000 MG/250 ML BAG IVPB SCH (22:58)
[2020-11-02] MEDS ORDERED: MELATONIN 5 MG TABLETS PO ONE (23:02)
[2020-11-03] MEDS ORDERED: METHADONE HCL 10 MG TABLET ONE (06:07)
[2020-11-03] MEDS ORDERED: METHADONE HCL 40 MG DISPERSABLE TABLET ONE (06:07)
[2020-11-03] MEDS: METHADONE 40 MG, METHADONE 20 MG PO SCH (06:29)
[2020-11-03 08:57] LABS: BASO % 0.8 % (0-2.0); EOS % 2.6 % (0-4.5); HEMOGLOBIN 12.8 GM/dL (11.7-16.9); LYMPH % 30.4 % (8-40); MCH 28.5 pg (25.7-33.7); MCHC 31.2 g/dl (32.0-35.9); MEAN CELL VOLUME 91.4 fl (80-96); MEAN PLT VOLUME 9.9 fl (7.5-11.1); MONO % 11.1 % (3.8-10.2); NEUT % 55.1 % (42.8-82.8); PLATELET COUNT 230 K/MM3 (134-434); RBC 4.49 M/mm3 (4.00-5.60); RDW 15.7 % (11.9-15.9); WHITE BLOOD COUNT 8.5 K/mm3 (4.0-10.0)
[2020-11-03] MEDS: FOLIC ACID 1 MG TABLET (FP) PO SCH (09:03)
[2020-11-03] MEDS: ASPIRIN 81 MG CHEWABLE TABLETS PO SCH (09:03)
[2020-11-03] MEDS: MULTIVITAMINS (DAILY MVI) TABLET (FP) PO SCH (09:03)
[2020-11-03] MEDS: THIAMINE HCL 100 MG TABLET (FP) PO SCH ×2 (09:03→21:20)
[2020-11-03] MEDS: ENOXAPARIN NA (PORCINE) 40 MG/0.4 ML DISP.SYRIN SQ SCH (09:03)
[2020-11-03] MEDS: CYANOCOBALAMIN (VITAMIN B-12) 100 MCG TABLET PO SCH (09:03)
[2020-11-03] MEDS: BUDESONIDE/FORMETEROL FUMARATE 160/4.5 mcg INHALER IH SCH ×2 (09:04→21:20)
[2020-11-03 09:18] LABS: POTASSIUM 4.4 mmol/L (3.5-5.1)
[2020-11-03 09:25] LABS: ALBUMIN 2.5 g/dl (3.4-5.0); CALCIUM 8.5 mg/dL (8.5-10.1)
[2020-11-03 09:26] LABS: BLOOD UREA NITROGEN 17.8 mg/dL (7-18)
[2020-11-03 09:29] LABS: CREATININE 0.9 mg/dL (0.55-1.3)
[2020-11-03 09:30] LABS: BILIRUBIN,TOTAL 0.9 mg/dL (0.2-1); TOT PROT 6.8 g/dl (6.4-8.2)
[2020-11-03] MEDS: VANCOMYCIN 1 GRAM (PRE-DOCKED) 1,000 MG/250 ML BAG IVPB SCH (13:31)
[2020-11-04] MEDS: VANCOMYCIN 1 GRAM (PRE-DOCKED) 1,000 MG/250 ML BAG IVPB SCH ×3 (00:02→23:53)
[2020-11-04] MEDS ORDERED: METHADONE HCL 10 MG TABLET ONE (05:52)
[2020-11-04] MEDS ORDERED: METHADONE HCL 40 MG DISPERSABLE TABLET ONE (05:53)
[2020-11-04] MEDS: METHADONE 40 MG, METHADONE 20 MG PO SCH (06:01)
[2020-11-04] MEDS: ENOXAPARIN NA (PORCINE) 40 MG/0.4 ML DISP.SYRIN SQ SCH (10:14)
[2020-11-04] MEDS: MULTIVITAMINS (DAILY MVI) TABLET (FP) PO SCH (10:14)
[2020-11-04] MEDS: THIAMINE HCL 100 MG TABLET (FP) PO SCH ×2 (10:14→22:36)
[2020-11-04] MEDS: ASPIRIN 81 MG CHEWABLE TABLETS PO SCH (10:14)
[2020-11-04] MEDS: CYANOCOBALAMIN (VITAMIN B-12) 100 MCG TABLET PO SCH (10:14)
[2020-11-04] MEDS: FOLIC ACID 1 MG TABLET (FP) PO SCH (10:14)
[2020-11-04] MEDS: BUDESONIDE/FORMETEROL FUMARATE 160/4.5 mcg INHALER IH SCH ×2 (10:25→22:36)
[2020-11-04] MEDS ORDERED: ASPIRIN 81 MG CHEWABLE TABLETS PO SCH (12:45)
[2020-11-04] MEDS: SPIRONOLACTONE 25 MG TABLET PO SCH (13:08)
[2020-11-04] MEDS: BACITRACIN 15 GM TUBE TOPICAL OINTMENT TP SCH ×2 (13:08→22:36)
[2020-11-04] MEDS: LISINOPRIL 20 MG TABLET PO SCH (13:09)
[2020-11-04] MEDS: TORSEMIDE 20 MG TABLET (FP) PO SCH (13:09)
[2020-11-04] MEDS: CARVEDILOL 12.5 MG TABLET (FP) PO SCH ×2 (13:09→22:35)
[2020-11-04] MEDS: ALBUTEROL SO4 2.5/IPRATROPIUM 0.5 INH SOL 3 ML VIAL.NEB. NEB SCH ×2 (14:55→23:12)
[2020-11-04] MEDS ORDERED: ATORVASTATIN CA 40 MG TABLET (FP) PO SCH (22:00)
[2020-11-05] MEDS ORDERED: METHADONE HCL 10 MG TABLET ONE (05:30)
[2020-11-05] MEDS ORDERED: METHADONE HCL 40 MG DISPERSABLE TABLET ONE (05:30)
[2020-11-05] MEDS: METHADONE 40 MG, METHADONE 20 MG PO SCH (05:38)
[2020-11-05] MEDS: TORSEMIDE 20 MG TABLET (FP) PO SCH (05:39)
[2020-11-05 07:41] VITALS: BP 135/88; PULSE 100; TEMP 98.8
[2020-11-05] MEDS: ALBUTEROL SO4 2.5/IPRATROPIUM 0.5 INH SOL 3 ML VIAL.NEB. NEB SCH (08:15)
[2020-11-05] MEDS: CARVEDILOL 12.5 MG TABLET (FP) PO SCH (08:52)
[2020-11-05] MEDS: SPIRONOLACTONE 25 MG TABLET PO SCH (08:52)
[2020-11-05] MEDS: CYANOCOBALAMIN (VITAMIN B-12) 100 MCG TABLET PO SCH (08:53)
[2020-11-05] MEDS: BACITRACIN 15 GM TUBE TOPICAL OINTMENT TP SCH (08:53)
[2020-11-05] MEDS: FOLIC ACID 1 MG TABLET (FP) PO SCH (08:53)
[2020-11-05] MEDS: BUDESONIDE/FORMETEROL FUMARATE 160/4.5 mcg INHALER IH SCH (08:54)
[2020-11-05] MEDS: THIAMINE HCL 100 MG TABLET (FP) PO SCH (08:54)
[2020-11-05] MEDS: LISINOPRIL 20 MG TABLET PO SCH (08:54)
[2020-11-05] MEDS ORDERED: MULTIVITAMINS (DAILY MVI) TABLET (FP) PO SCH (10:00)
[2020-11-05] MEDS ORDERED: ASPIRIN 81 MG CHEWABLE TABLETS PO SCH (10:00)
[2020-11-05] MEDS ORDERED: FERROUS SO4 325 MG TABLET (FP) PO SCH (10:00)
== END 2020-11-05 09:50 | disposition other institution (70) | DRG 383 ==
LOC: JER 15:54 → JERBED 21:03 → J6S 10-31 14:24
PROVIDERS: ADMIT Hospitalist; ATTEND Internal Medicine
PROC: HZ2ZZZZ Detoxification Services for Substance Abuse Treatment (ICD-10-PCS; principal; 2020-10-30)
DX: L03.115 Cellulitis of right lower limb (principal); I25.10 Atherosclerotic heart disease of native coronary artery without angina pectoris; F19.20 Other psychoactive substance dependence, uncomplicated; Z59.0 Homelessness; F10.20 Alcohol dependence, uncomplicated; F10.239 Alcohol dependence with withdrawal, unspecified; N17.9 Acute kidney failure, unspecified; I50.30 Unspecified diastolic (congestive) heart failure; I11.0 Hypertensive heart disease with heart failure; I95.9 Hypotension, unspecified; E66.9 Obesity, unspecified; Z68.31 Body mass index [BMI] 31.0-31.9, adult; D72.829 Elevated white blood cell count, unspecified; F17.210 Nicotine dependence, cigarettes, uncomplicated; E86.0 Dehydration
CPT/HCPCS: 36415; 73700-TC-RT; 80048; 80053; 80307; 81003; 82550; 82728; 83605; 83615; 83735; 84100; 84443; 84484; 85025; 85027; 85379; 85610; 86140; 86780; 87040; 87070; 87186; 87205; 93005; 93010; 94640; 99285-25; C9803; G0480; U0003

== ENCOUNTER 2020-11-05 10:25 | Inpatient (IN) | payer OTHER ==
[2020-11-05] MEDS ORDERED: IBUPROFEN 400 MG TABLET (FP) PO PRN (11:32)
[2020-11-05] MEDS ORDERED: ACETAMINOPHEN 325 MG TABLET (FP) PO PRN (11:32)
[2020-11-05] MEDS ORDERED: P-EPHED 60MG/TRIPROLIDI 2.5MG TABLET PO PRN (11:32)
[2020-11-05] MEDS ORDERED: LOPERAMIDE HCL 2 MG CAPSULE PO PRN (11:32)
[2020-11-05] MEDS ORDERED: guaiFENesin 200 MG/10 ML 10 ML UNIT-DOSE CUPS PO PRN (11:32)
[2020-11-05] MEDS ORDERED: MAGNESIUM HYDROX 2400MG/30ML ORAL SUSPENSION 30 ML CUP PO PRN (11:32)
[2020-11-05] MEDS ORDERED: MAGNESIUM CITRATE 300 ML BOTTLE PO PRN (11:32)
[2020-11-05] MEDS ORDERED: MAG HYDROX/AL HYDROX/SIMETH 30 ML UNIT-DOSE CUP PO PRN (11:32)
[2020-11-05 11:54] VITALS: BMI 31.3
[2020-11-05] MEDS: TORSEMIDE 20 MG TABLET (FP) PO SCH (13:54)
[2020-11-05] MEDS: hydrOXYzine PAMOATE 25 MG CAPSULE (FP) PO SCH ×3 (13:54→21:33)
[2020-11-05] MEDS ORDERED: TUBERCULIN PPD 5 TU/0.1ML VIAL ID ONE (13:56)
[2020-11-05] MEDS: metFORMIN HCL 500 MG TABLET (FP) PO SCH (17:01)
[2020-11-05] MEDS: DOXYCYCLINE HYCLATE 100 MG TABLET PO SCH (19:02)
[2020-11-05] MEDS: BUDESONIDE/FORMETEROL FUMARATE 160/4.5 mcg INHALER IH SCH (21:32)
[2020-11-05] MEDS: MELATONIN 5 MG TABLETS PO SCH (21:33)
[2020-11-05] MEDS: CARVEDILOL 12.5 MG TABLET (FP) PO SCH (21:33)
[2020-11-05] MEDS: THIAMINE HCL 100 MG TABLET (FP) PO SCH (21:33)
[2020-11-05] MEDS: METHOCARBAMOL 500 MG TABLET PO PRN (21:33)
[2020-11-05] MEDS: ATORVASTATIN CA 40 MG TABLET (FP) PO SCH (21:33)
[2020-11-06] MEDS ORDERED: METHADONE HCL 40 MG DISPERSABLE TABLET PO SCH (06:00)
[2020-11-06] MEDS ORDERED: METHADONE HCL 10 MG TABLET ONE (06:25)
[2020-11-06] MEDS ORDERED: METHADONE HCL 40 MG DISPERSABLE TABLET ONE (06:25)
[2020-11-06] MEDS: metFORMIN HCL 500 MG TABLET (FP) PO SCH ×2 (06:26→16:32)
[2020-11-06] MEDS: TORSEMIDE 20 MG TABLET (FP) PO SCH ×2 (06:26→14:37)
[2020-11-06] MEDS: METHADONE 40 MG, METHADONE 20 MG PO SCH (06:26)
[2020-11-06] MEDS: hydrOXYzine PAMOATE 25 MG CAPSULE (FP) PO SCH ×5 (06:26→21:37)
[2020-11-06] MEDS: BUDESONIDE/FORMETEROL FUMARATE 160/4.5 mcg INHALER IH SCH ×2 (10:06→21:37)
[2020-11-06] MEDS: PRENATAL VITAMINS W/ FOLIC ACID TABLET (FP) PO SCH (10:06)
[2020-11-06] MEDS: DOXYCYCLINE HYCLATE 100 MG TABLET PO SCH ×2 (10:07→17:04)
[2020-11-06] MEDS: FERROUS SO4 325 MG TABLET (FP) PO SCH (10:07)
[2020-11-06] MEDS: LISINOPRIL 20 MG TABLET PO SCH (10:07)
[2020-11-06] MEDS: CYANOCOBALAMIN (VITAMIN B-12) 100 MCG TABLET PO SCH (10:07)
[2020-11-06] MEDS: SPIRONOLACTONE 25 MG TABLET PO SCH (10:07)
[2020-11-06] MEDS: ASPIRIN 81 MG CHEWABLE TABLETS PO SCH (10:07)
[2020-11-06] MEDS: NICOTINE POLACRILEX 2 MG GUM BUC PRN (10:08)
[2020-11-06] MEDS: CARVEDILOL 12.5 MG TABLET (FP) PO SCH ×2 (10:08→21:37)
[2020-11-06] MEDS: NICOTINE 7 MG/24 HOURS TOPICAL PATCH TD SCH (10:08)
[2020-11-06] MEDS ORDERED: COLLOIDAL OATMEAL 1 BAR EACH TP PRN (15:00)
[2020-11-06] MEDS: THIAMINE HCL 100 MG TABLET (FP) PO SCH (21:37)
[2020-11-06] MEDS: ATORVASTATIN CA 40 MG TABLET (FP) PO SCH (21:37)
[2020-11-06] MEDS: METHOCARBAMOL 500 MG TABLET PO PRN (21:37)
[2020-11-06] MEDS: MELATONIN 5 MG TABLETS PO SCH (21:37)
[2020-11-07] MEDS ORDERED: METHADONE HCL 10 MG TABLET ONE (03:27)
[2020-11-07] MEDS ORDERED: METHADONE HCL 40 MG DISPERSABLE TABLET ONE (03:27)
[2020-11-07] MEDS: METHADONE 40 MG, METHADONE 20 MG PO SCH (06:38)
[2020-11-07] MEDS: hydrOXYzine PAMOATE 25 MG CAPSULE (FP) PO SCH ×5 (06:38→21:45)
[2020-11-07] MEDS: TORSEMIDE 20 MG TABLET (FP) PO SCH ×2 (06:38→14:30)
[2020-11-07] MEDS: metFORMIN HCL 500 MG TABLET (FP) PO SCH ×2 (06:41→16:51)
[2020-11-07] MEDS: BUDESONIDE/FORMETEROL FUMARATE 160/4.5 mcg INHALER IH SCH ×2 (09:44→21:42)
[2020-11-07] MEDS: PRENATAL VITAMINS W/ FOLIC ACID TABLET (FP) PO SCH (09:44)
[2020-11-07] MEDS: DOXYCYCLINE HYCLATE 100 MG TABLET PO SCH ×2 (09:45→17:32)
[2020-11-07] MEDS: FERROUS SO4 325 MG TABLET (FP) PO SCH (09:45)
[2020-11-07] MEDS: CYANOCOBALAMIN (VITAMIN B-12) 100 MCG TABLET PO SCH (09:45)
[2020-11-07] MEDS: ASPIRIN 81 MG CHEWABLE TABLETS PO SCH (09:45)
[2020-11-07] MEDS: LISINOPRIL 20 MG TABLET PO SCH (09:45)
[2020-11-07] MEDS: SPIRONOLACTONE 25 MG TABLET PO SCH (09:45)
[2020-11-07] MEDS: NICOTINE 7 MG/24 HOURS TOPICAL PATCH TD SCH (09:46)
[2020-11-07] MEDS: NICOTINE POLACRILEX 2 MG GUM BUC PRN (09:46)
[2020-11-07] MEDS: CARVEDILOL 12.5 MG TABLET (FP) PO SCH ×2 (09:46→21:47)
[2020-11-07] MEDS: ATORVASTATIN CA 40 MG TABLET (FP) PO SCH (21:45)
[2020-11-07] MEDS: NAPROXEN 500 MG TABLET PO PRN (21:45)
[2020-11-07] MEDS: THIAMINE HCL 100 MG TABLET (FP) PO SCH (21:45)
[2020-11-07] MEDS: METHOCARBAMOL 500 MG TABLET PO PRN (21:45)
[2020-11-07] MEDS: MELATONIN 5 MG TABLETS PO SCH (21:45)
[2020-11-07] MEDS: QUEtiapine FUMARATE 50 MG TABLET PO SCH (21:48)
[2020-11-08] MEDS ORDERED: METHADONE HCL 40 MG DISPERSABLE TABLET ONE (03:20)
[2020-11-08] MEDS ORDERED: METHADONE HCL 10 MG TABLET ONE (03:20)
[2020-11-08] MEDS: hydrOXYzine PAMOATE 25 MG CAPSULE (FP) PO SCH ×5 (06:37→21:42)
[2020-11-08] MEDS: metFORMIN HCL 500 MG TABLET (FP) PO SCH ×2 (06:37→16:36)
[2020-11-08] MEDS: TORSEMIDE 20 MG TABLET (FP) PO SCH ×2 (06:37→13:45)
[2020-11-08] MEDS: METHADONE 40 MG, METHADONE 20 MG PO SCH (06:38)
[2020-11-08] MEDS: BUDESONIDE/FORMETEROL FUMARATE 160/4.5 mcg INHALER IH SCH ×2 (10:05→21:42)
[2020-11-08] MEDS: FERROUS SO4 325 MG TABLET (FP) PO SCH (10:06)
[2020-11-08] MEDS: CYANOCOBALAMIN (VITAMIN B-12) 100 MCG TABLET PO SCH (10:06)
[2020-11-08] MEDS: ASPIRIN 81 MG CHEWABLE TABLETS PO SCH (10:06)
[2020-11-08] MEDS: DOXYCYCLINE HYCLATE 100 MG TABLET PO SCH ×2 (10:06→17:02)
[2020-11-08] MEDS: PRENATAL VITAMINS W/ FOLIC ACID TABLET (FP) PO SCH (10:06)
[2020-11-08] MEDS: SPIRONOLACTONE 25 MG TABLET PO SCH (10:06)
[2020-11-08] MEDS: LISINOPRIL 20 MG TABLET PO SCH (10:06)
[2020-11-08] MEDS: NICOTINE POLACRILEX 2 MG GUM BUC PRN ×2 (10:07→16:38)
[2020-11-08] MEDS: NICOTINE 7 MG/24 HOURS TOPICAL PATCH TD SCH (10:07)
[2020-11-08] MEDS: CARVEDILOL 12.5 MG TABLET (FP) PO SCH ×2 (10:08→21:42)
[2020-11-08] MEDS: MELATONIN 5 MG TABLETS PO SCH (21:41)
[2020-11-08] MEDS: THIAMINE HCL 100 MG TABLET (FP) PO SCH (21:42)
[2020-11-08] MEDS: QUEtiapine FUMARATE 50 MG TABLET PO SCH (21:42)
[2020-11-08] MEDS: ATORVASTATIN CA 40 MG TABLET (FP) PO SCH (21:42)
[2020-11-09] MEDS ORDERED: METHADONE HCL 10 MG TABLET ONE (04:15)
[2020-11-09] MEDS ORDERED: METHADONE HCL 40 MG DISPERSABLE TABLET ONE (04:15)
[2020-11-09] MEDS: hydrOXYzine PAMOATE 25 MG CAPSULE (FP) PO SCH ×5 (06:44→21:20)
[2020-11-09] MEDS: TORSEMIDE 20 MG TABLET (FP) PO SCH ×2 (06:44→14:03)
[2020-11-09] MEDS: metFORMIN HCL 500 MG TABLET (FP) PO SCH ×2 (06:44→16:55)
[2020-11-09] MEDS: METHADONE 40 MG, METHADONE 20 MG PO SCH (06:44)
[2020-11-09] MEDS: PRENATAL VITAMINS W/ FOLIC ACID TABLET (FP) PO SCH (09:52)
[2020-11-09] MEDS: FERROUS SO4 325 MG TABLET (FP) PO SCH (09:53)
[2020-11-09] MEDS: ASPIRIN 81 MG CHEWABLE TABLETS PO SCH (09:53)
[2020-11-09] MEDS: LISINOPRIL 20 MG TABLET PO SCH (09:53)
[2020-11-09] MEDS: CARVEDILOL 12.5 MG TABLET (FP) PO SCH ×2 (09:54→21:20)
[2020-11-09] MEDS: BUDESONIDE/FORMETEROL FUMARATE 160/4.5 mcg INHALER IH SCH ×2 (09:54→21:19)
[2020-11-09] MEDS: NICOTINE 7 MG/24 HOURS TOPICAL PATCH TD SCH (09:54)
[2020-11-09] MEDS: SPIRONOLACTONE 25 MG TABLET PO SCH (09:54)
[2020-11-09] MEDS: NAPROXEN 500 MG TABLET PO PRN ×2 (09:55→21:20)
[2020-11-09] MEDS: DOXYCYCLINE HYCLATE 100 MG TABLET PO SCH ×2 (09:55→17:22)
[2020-11-09] MEDS: CYANOCOBALAMIN (VITAMIN B-12) 100 MCG TABLET PO SCH (09:55)
[2020-11-09] MEDS: COLLOIDAL OATMEAL 1 BAR EACH TP PRN (14:00)
[2020-11-09] MEDS: ALBUTEROL SO4 HFA INHALER IH PRN ×2 (14:00→21:19)
[2020-11-09] MEDS: AMMONIUM LACTATE 12% LOTION 225 GM BOTTLE TP PRN (17:23)
[2020-11-09] MEDS: NICOTINE POLACRILEX 2 MG GUM BUC PRN (18:06)
[2020-11-09] MEDS: METHOCARBAMOL 500 MG TABLET PO PRN (21:20)
[2020-11-09] MEDS: QUEtiapine FUMARATE 50 MG TABLET PO SCH (21:20)
[2020-11-09] MEDS: MELATONIN 5 MG TABLETS PO SCH (21:20)
[2020-11-09] MEDS: THIAMINE HCL 100 MG TABLET (FP) PO SCH (21:20)
[2020-11-09] MEDS: ATORVASTATIN CA 40 MG TABLET (FP) PO SCH (21:20)
[2020-11-10] MEDS ORDERED: METHADONE HCL 40 MG DISPERSABLE TABLET ONE (04:08)
[2020-11-10] MEDS ORDERED: METHADONE HCL 10 MG TABLET ONE (04:08)
[2020-11-10] MEDS: TORSEMIDE 20 MG TABLET (FP) PO SCH ×2 (06:16→14:07)
[2020-11-10] MEDS: hydrOXYzine PAMOATE 25 MG CAPSULE (FP) PO SCH ×5 (06:16→21:38)
[2020-11-10] MEDS: METHADONE 40 MG, METHADONE 20 MG PO SCH (06:16)
[2020-11-10] MEDS: metFORMIN HCL 500 MG TABLET (FP) PO SCH ×2 (06:17→16:45)
[2020-11-10] MEDS: NICOTINE 7 MG/24 HOURS TOPICAL PATCH TD SCH (10:15)
[2020-11-10] MEDS: CARVEDILOL 12.5 MG TABLET (FP) PO SCH ×2 (10:16→21:38)
[2020-11-10] MEDS: ALBUTEROL SO4 HFA INHALER IH PRN ×2 (10:16→21:38)
[2020-11-10] MEDS: LISINOPRIL 20 MG TABLET PO SCH (10:16)
[2020-11-10] MEDS: FERROUS SO4 325 MG TABLET (FP) PO SCH (10:16)
[2020-11-10] MEDS: ASPIRIN 81 MG CHEWABLE TABLETS PO SCH (10:16)
[2020-11-10] MEDS: PRENATAL VITAMINS W/ FOLIC ACID TABLET (FP) PO SCH (10:16)
[2020-11-10] MEDS: BUDESONIDE/FORMETEROL FUMARATE 160/4.5 mcg INHALER IH SCH ×2 (10:16→21:38)
[2020-11-10] MEDS: CYANOCOBALAMIN (VITAMIN B-12) 100 MCG TABLET PO SCH (10:17)
[2020-11-10] MEDS: DOXYCYCLINE HYCLATE 100 MG TABLET PO SCH ×2 (10:17→17:42)
[2020-11-10] MEDS: SPIRONOLACTONE 25 MG TABLET PO SCH (10:17)
[2020-11-10] MEDS: NICOTINE POLACRILEX 2 MG GUM BUC PRN (10:19)
[2020-11-10] MEDS: WITCH HAZEL 50% (TUCKS) 40 PAD/JAR PAD TP PRN (17:42)
[2020-11-10] MEDS: QUEtiapine FUMARATE 50 MG TABLET PO SCH (21:38)
[2020-11-10] MEDS: MELATONIN 5 MG TABLETS PO SCH (21:38)
[2020-11-10] MEDS: NAPROXEN 500 MG TABLET PO PRN (21:38)
[2020-11-10] MEDS: THIAMINE HCL 100 MG TABLET (FP) PO SCH (21:38)
[2020-11-10] MEDS: METHOCARBAMOL 500 MG TABLET PO PRN (21:38)
[2020-11-10] MEDS: ATORVASTATIN CA 40 MG TABLET (FP) PO SCH (21:39)
[2020-11-11] MEDS ORDERED: METHADONE HCL 10 MG TABLET ONE (04:24)
[2020-11-11] MEDS ORDERED: METHADONE HCL 40 MG DISPERSABLE TABLET ONE (04:24)
[2020-11-11] MEDS: metFORMIN HCL 500 MG TABLET (FP) PO SCH ×2 (06:22→16:48)
[2020-11-11] MEDS: hydrOXYzine PAMOATE 25 MG CAPSULE (FP) PO SCH ×5 (06:22→21:21)
[2020-11-11] MEDS: METHADONE 40 MG, METHADONE 20 MG PO SCH (06:22)
[2020-11-11] MEDS: TORSEMIDE 20 MG TABLET (FP) PO SCH ×2 (06:22→14:23)
[2020-11-11] MEDS: BUDESONIDE/FORMETEROL FUMARATE 160/4.5 mcg INHALER IH SCH ×2 (10:01→21:20)
[2020-11-11] MEDS: LISINOPRIL 20 MG TABLET PO SCH (10:01)
[2020-11-11] MEDS: CARVEDILOL 12.5 MG TABLET (FP) PO SCH ×2 (10:01→21:21)
[2020-11-11] MEDS: ASPIRIN 81 MG CHEWABLE TABLETS PO SCH (10:01)
[2020-11-11] MEDS: DOXYCYCLINE HYCLATE 100 MG TABLET PO SCH ×2 (10:01→17:48)
[2020-11-11] MEDS: FERROUS SO4 325 MG TABLET (FP) PO SCH (10:02)
[2020-11-11] MEDS: PRENATAL VITAMINS W/ FOLIC ACID TABLET (FP) PO SCH (10:02)
[2020-11-11] MEDS: SPIRONOLACTONE 25 MG TABLET PO SCH (10:02)
[2020-11-11] MEDS: CYANOCOBALAMIN (VITAMIN B-12) 100 MCG TABLET PO SCH (10:02)
[2020-11-11] MEDS: NICOTINE 7 MG/24 HOURS TOPICAL PATCH TD SCH (10:03)
[2020-11-11] MEDS: ALBUTEROL SO4 HFA INHALER IH PRN (20:07)
[2020-11-11] MEDS: ATORVASTATIN CA 40 MG TABLET (FP) PO SCH (21:21)
[2020-11-11] MEDS: QUEtiapine FUMARATE 50 MG TABLET PO SCH (21:21)
[2020-11-11] MEDS: METHOCARBAMOL 500 MG TABLET PO PRN (21:21)
[2020-11-11] MEDS: NAPROXEN 500 MG TABLET PO PRN (21:21)
[2020-11-11] MEDS: THIAMINE HCL 100 MG TABLET (FP) PO SCH (21:21)
[2020-11-11] MEDS: MELATONIN 5 MG TABLETS PO SCH (21:21)
[2020-11-11] MEDS: ALBUTEROL SO4 2.5/IPRATROPIUM 0.5 INH SOL 3 ML VIAL.NEB. NEB PRN (21:47)
[2020-11-12] MEDS: METHADONE 40 MG, METHADONE 20 MG PO SCH (06:27)
[2020-11-12] MEDS ORDERED: METHADONE HCL 10 MG TABLET ONE (06:27)
[2020-11-12] MEDS: TORSEMIDE 20 MG TABLET (FP) PO SCH ×2 (06:27→14:27)
[2020-11-12] MEDS ORDERED: METHADONE HCL 40 MG DISPERSABLE TABLET ONE (06:27)
[2020-11-12] MEDS: metFORMIN HCL 500 MG TABLET (FP) PO SCH ×2 (06:28→16:58)
[2020-11-12] MEDS: BUDESONIDE/FORMETEROL FUMARATE 160/4.5 mcg INHALER IH SCH ×2 (09:31→21:12)
[2020-11-12] MEDS: ASPIRIN 81 MG CHEWABLE TABLETS PO SCH (09:31)
[2020-11-12] MEDS: LISINOPRIL 20 MG TABLET PO SCH (09:31)
[2020-11-12] MEDS: FERROUS SO4 325 MG TABLET (FP) PO SCH (09:31)
[2020-11-12] MEDS: DOXYCYCLINE HYCLATE 100 MG TABLET PO SCH ×2 (09:32→16:59)
[2020-11-12] MEDS: CYANOCOBALAMIN (VITAMIN B-12) 100 MCG TABLET PO SCH (09:32)
[2020-11-12] MEDS: SPIRONOLACTONE 25 MG TABLET PO SCH (09:32)
[2020-11-12] MEDS: NICOTINE 7 MG/24 HOURS TOPICAL PATCH TD SCH (09:33)
[2020-11-12] MEDS: CARVEDILOL 12.5 MG TABLET (FP) PO SCH ×2 (09:33→21:11)
[2020-11-12] MEDS: PRENATAL VITAMINS W/ FOLIC ACID TABLET (FP) PO SCH (09:33)
[2020-11-12] MEDS: ALBUTEROL SO4 2.5/IPRATROPIUM 0.5 INH SOL 3 ML VIAL.NEB. NEB PRN (19:24)
[2020-11-12] MEDS: MELATONIN 5 MG TABLETS PO SCH (21:09)
[2020-11-12] MEDS: THIAMINE HCL 100 MG TABLET (FP) PO SCH (21:09)
[2020-11-12] MEDS: METHOCARBAMOL 500 MG TABLET PO PRN (21:10)
[2020-11-12] MEDS: hydrOXYzine PAMOATE 25 MG CAPSULE (FP) PO PRN (21:10)
[2020-11-12] MEDS: ATORVASTATIN CA 40 MG TABLET (FP) PO SCH (21:10)
[2020-11-12] MEDS: NAPROXEN 500 MG TABLET PO PRN (21:10)
[2020-11-12] MEDS: QUEtiapine FUMARATE 50 MG TABLET PO SCH (21:10)
[2020-11-12] MEDS: BACITRACIN 0.9 GM PACKET TP SCH (21:12)
[2020-11-13] MEDS ORDERED: METHADONE HCL 40 MG DISPERSABLE TABLET ONE (03:20)
[2020-11-13] MEDS ORDERED: METHADONE HCL 10 MG TABLET ONE (03:20)
[2020-11-13] MEDS: TORSEMIDE 20 MG TABLET (FP) PO SCH ×2 (06:12→14:40)
[2020-11-13] MEDS: METHADONE 40 MG, METHADONE 20 MG PO SCH (06:12)
[2020-11-13] MEDS: metFORMIN HCL 500 MG TABLET (FP) PO SCH ×2 (06:13→16:23)
[2020-11-13] MEDS: ALBUTEROL SO4 HFA INHALER IH PRN (06:15)
[2020-11-13] MEDS: FERROUS SO4 325 MG TABLET (FP) PO SCH (09:35)
[2020-11-13] MEDS: ASPIRIN 81 MG CHEWABLE TABLETS PO SCH (09:35)
[2020-11-13] MEDS: LISINOPRIL 20 MG TABLET PO SCH (09:35)
[2020-11-13] MEDS: BACITRACIN 0.9 GM PACKET TP SCH ×2 (09:35→22:20)
[2020-11-13] MEDS: CARVEDILOL 12.5 MG TABLET (FP) PO SCH ×2 (09:36→21:16)
[2020-11-13] MEDS: PRENATAL VITAMINS W/ FOLIC ACID TABLET (FP) PO SCH (09:36)
[2020-11-13] MEDS: NICOTINE 7 MG/24 HOURS TOPICAL PATCH TD SCH (09:37)
[2020-11-13] MEDS: CYANOCOBALAMIN (VITAMIN B-12) 100 MCG TABLET PO SCH (09:37)
[2020-11-13] MEDS: SPIRONOLACTONE 25 MG TABLET PO SCH (09:37)
[2020-11-13] MEDS: BUDESONIDE/FORMETEROL FUMARATE 160/4.5 mcg INHALER IH SCH ×2 (09:38→21:13)
[2020-11-13] MEDS: DOXYCYCLINE HYCLATE 100 MG TABLET PO SCH ×2 (09:38→17:19)
[2020-11-13] MEDS: NICOTINE POLACRILEX 4 MG GUM BUC PRN (09:40)
[2020-11-13] MEDS: ALBUTEROL SO4 2.5/IPRATROPIUM 0.5 INH SOL 3 ML VIAL.NEB. NEB PRN (20:12)
[2020-11-13] MEDS: THIAMINE HCL 100 MG TABLET (FP) PO SCH (21:14)
[2020-11-13] MEDS: ATORVASTATIN CA 40 MG TABLET (FP) PO SCH (21:14)
[2020-11-13] MEDS: NAPROXEN 500 MG TABLET PO PRN (21:14)
[2020-11-13] MEDS: QUEtiapine FUMARATE 50 MG TABLET PO SCH (21:14)
[2020-11-13] MEDS: METHOCARBAMOL 500 MG TABLET PO PRN (21:14)
[2020-11-13] MEDS: MELATONIN 5 MG TABLETS PO SCH (21:14)
[2020-11-13] MEDS: hydrOXYzine PAMOATE 25 MG CAPSULE (FP) PO PRN (21:14)
[2020-11-14] MEDS ORDERED: METHADONE HCL 40 MG DISPERSABLE TABLET ONE (03:20)
[2020-11-14] MEDS ORDERED: METHADONE HCL 10 MG TABLET ONE (03:20)
[2020-11-14] MEDS: METHADONE 40 MG, METHADONE 20 MG PO SCH (06:24)
[2020-11-14] MEDS: metFORMIN HCL 500 MG TABLET (FP) PO SCH ×2 (06:25→16:35)
[2020-11-14] MEDS: TORSEMIDE 20 MG TABLET (FP) PO SCH ×2 (06:25→14:30)
[2020-11-14] MEDS: DOXYCYCLINE HYCLATE 100 MG TABLET PO SCH ×2 (09:34→17:26)
[2020-11-14] MEDS: SPIRONOLACTONE 25 MG TABLET PO SCH (09:34)
[2020-11-14] MEDS: ASPIRIN 81 MG CHEWABLE TABLETS PO SCH (09:34)
[2020-11-14] MEDS: CARVEDILOL 12.5 MG TABLET (FP) PO SCH ×2 (09:34→21:05)
[2020-11-14] MEDS: CYANOCOBALAMIN (VITAMIN B-12) 100 MCG TABLET PO SCH (09:34)
[2020-11-14] MEDS: BUDESONIDE/FORMETEROL FUMARATE 160/4.5 mcg INHALER IH SCH ×2 (09:35→21:04)
[2020-11-14] MEDS: NICOTINE 7 MG/24 HOURS TOPICAL PATCH TD SCH (09:35)
[2020-11-14] MEDS: LISINOPRIL 20 MG TABLET PO SCH (09:35)
[2020-11-14] MEDS: NICOTINE POLACRILEX 4 MG GUM BUC PRN (09:35)
[2020-11-14] MEDS: FERROUS SO4 325 MG TABLET (FP) PO SCH (09:35)
[2020-11-14] MEDS: PRENATAL VITAMINS W/ FOLIC ACID TABLET (FP) PO SCH (09:36)
[2020-11-14] MEDS: BACITRACIN 0.9 GM PACKET TP SCH ×2 (09:58→21:06)
[2020-11-14] MEDS ORDERED: HYDROCORTISONE 2.5% TOPICAL CREAM 30 GM TUBE TP SCH (14:00)
[2020-11-14] MEDS: ALBUTEROL SO4 2.5/IPRATROPIUM 0.5 INH SOL 3 ML VIAL.NEB. NEB PRN ×2 (14:04→19:26)
[2020-11-14] MEDS: HYDROCORTISONE 2.5% TOPICAL CREAM 30 GM TUBE RC SCH ×2 (15:30→21:07)
[2020-11-14] MEDS: METHOCARBAMOL 500 MG TABLET PO PRN (21:05)
[2020-11-14] MEDS: ATORVASTATIN CA 40 MG TABLET (FP) PO SCH (21:05)
[2020-11-14] MEDS: QUEtiapine FUMARATE 50 MG TABLET PO SCH (21:05)
[2020-11-14] MEDS: THIAMINE HCL 100 MG TABLET (FP) PO SCH (21:05)
[2020-11-14] MEDS: NAPROXEN 500 MG TABLET PO PRN (21:05)
[2020-11-14] MEDS: hydrOXYzine PAMOATE 25 MG CAPSULE (FP) PO PRN (21:05)
[2020-11-14] MEDS: MELATONIN 5 MG TABLETS PO SCH (21:05)
[2020-11-15] MEDS ORDERED: METHADONE HCL 40 MG DISPERSABLE TABLET ONE (03:59)
[2020-11-15] MEDS ORDERED: METHADONE HCL 10 MG TABLET ONE (03:59)
[2020-11-15] MEDS: TORSEMIDE 20 MG TABLET (FP) PO SCH ×2 (06:20→13:50)
[2020-11-15] MEDS: metFORMIN HCL 500 MG TABLET (FP) PO SCH ×2 (06:20→16:32)
[2020-11-15] MEDS: METHADONE 40 MG, METHADONE 20 MG PO SCH (06:20)
[2020-11-15] MEDS: COLLOIDAL OATMEAL 1 BAR EACH TP PRN (08:01)
[2020-11-15] MEDS: AMMONIUM LACTATE 12% LOTION 225 GM BOTTLE TP PRN ×2 (08:05→21:29)
[2020-11-15] MEDS: FERROUS SO4 325 MG TABLET (FP) PO SCH (09:35)
[2020-11-15] MEDS: BACITRACIN 0.9 GM PACKET TP SCH ×2 (09:35→21:28)
[2020-11-15] MEDS: ASPIRIN 81 MG CHEWABLE TABLETS PO SCH (09:35)
[2020-11-15] MEDS: HYDROCORTISONE 2.5% TOPICAL CREAM 30 GM TUBE RC SCH ×2 (09:36→21:10)
[2020-11-15] MEDS: SPIRONOLACTONE 25 MG TABLET PO SCH (09:36)
[2020-11-15] MEDS: PRENATAL VITAMINS W/ FOLIC ACID TABLET (FP) PO SCH (09:37)
[2020-11-15] MEDS: NICOTINE 7 MG/24 HOURS TOPICAL PATCH TD SCH (09:37)
[2020-11-15] MEDS: BUDESONIDE/FORMETEROL FUMARATE 160/4.5 mcg INHALER IH SCH ×2 (09:37→21:08)
[2020-11-15] MEDS: DOXYCYCLINE HYCLATE 100 MG TABLET PO SCH ×2 (09:38→17:33)
[2020-11-15] MEDS: CYANOCOBALAMIN (VITAMIN B-12) 100 MCG TABLET PO SCH (09:39)
[2020-11-15] MEDS: CARVEDILOL 12.5 MG TABLET (FP) PO SCH ×2 (09:52→21:09)
[2020-11-15] MEDS: LISINOPRIL 20 MG TABLET PO SCH (09:52)
[2020-11-15 14:03] LABS: PH,URINE 5.5 (5.0-8.0); URINE APPEARANCE Error; URINE BILIRUBIN NEGATIVE (NEGATIVE); URINE COLOR YELLOW; URINE GLUCOSE (UA) NEGATIVE (NEGATIVE); URINE KETONE NEGATIVE (NEGATIVE); URINE LEUK ESTERASE NEGATIVE (NEGATIVE); URINE NITRITE NEGATIVE (NEGATIVE); URINE PROTEIN NEGATIVE (NEGATIVE); URINE UROBILINOGEN 0.2 mg/dL (0.2-1.0)
[2020-11-15] MEDS: ALBUTEROL SO4 HFA INHALER IH PRN (21:08)
[2020-11-15] MEDS: THIAMINE HCL 100 MG TABLET (FP) PO SCH (21:09)
[2020-11-15] MEDS: NAPROXEN 500 MG TABLET PO PRN (21:09)
[2020-11-15] MEDS: MELATONIN 5 MG TABLETS PO SCH (21:09)
[2020-11-15] MEDS: ATORVASTATIN CA 40 MG TABLET (FP) PO SCH (21:09)
[2020-11-15] MEDS: METHOCARBAMOL 500 MG TABLET PO PRN (21:09)
[2020-11-15] MEDS: QUEtiapine FUMARATE 50 MG TABLET PO SCH (21:09)
[2020-11-15] MEDS: hydrOXYzine PAMOATE 25 MG CAPSULE (FP) PO PRN (21:09)
[2020-11-16] MEDS ORDERED: METHADONE HCL 10 MG TABLET ONE (03:56)
[2020-11-16] MEDS ORDERED: METHADONE HCL 40 MG DISPERSABLE TABLET ONE (03:56)
[2020-11-16] MEDS: TORSEMIDE 20 MG TABLET (FP) PO SCH ×2 (06:04→14:15)
[2020-11-16] MEDS: METHADONE 40 MG, METHADONE 20 MG PO SCH (06:04)
[2020-11-16] MEDS: metFORMIN HCL 500 MG TABLET (FP) PO SCH ×2 (06:05→17:11)
[2020-11-16] MEDS: FERROUS SO4 325 MG TABLET (FP) PO SCH (09:39)
[2020-11-16] MEDS: PRENATAL VITAMINS W/ FOLIC ACID TABLET (FP) PO SCH (09:39)
[2020-11-16] MEDS: DOXYCYCLINE HYCLATE 100 MG TABLET PO SCH ×2 (09:39→18:59)
[2020-11-16] MEDS: LISINOPRIL 20 MG TABLET PO SCH (09:39)
[2020-11-16] MEDS: ASPIRIN 81 MG CHEWABLE TABLETS PO SCH (09:39)
[2020-11-16] MEDS: SPIRONOLACTONE 25 MG TABLET PO SCH (09:40)
[2020-11-16] MEDS: CARVEDILOL 12.5 MG TABLET (FP) PO SCH ×2 (09:40→21:37)
[2020-11-16] MEDS: BACITRACIN 0.9 GM PACKET TP SCH ×2 (09:40→21:37)
[2020-11-16] MEDS: CYANOCOBALAMIN (VITAMIN B-12) 100 MCG TABLET PO SCH (09:41)
[2020-11-16] MEDS: NICOTINE 7 MG/24 HOURS TOPICAL PATCH TD SCH (09:41)
[2020-11-16] MEDS: NICOTINE POLACRILEX 4 MG GUM BUC PRN (09:41)
[2020-11-16] MEDS: BUDESONIDE/FORMETEROL FUMARATE 160/4.5 mcg INHALER IH SCH ×2 (09:41→21:38)
[2020-11-16] MEDS: HYDROCORTISONE 2.5% TOPICAL CREAM 30 GM TUBE RC SCH ×2 (09:49→21:40)
[2020-11-16] MEDS: WITCH HAZEL 50% (TUCKS) 40 PAD/JAR PAD TP PRN (10:47)
[2020-11-16] MEDS: QUEtiapine FUMARATE 50 MG TABLET PO SCH (21:37)
[2020-11-16] MEDS: MELATONIN 5 MG TABLETS PO SCH (21:37)
[2020-11-16] MEDS: THIAMINE HCL 100 MG TABLET (FP) PO SCH (21:37)
[2020-11-16] MEDS: ATORVASTATIN CA 40 MG TABLET (FP) PO SCH (21:37)
[2020-11-17] MEDS ORDERED: METHADONE HCL 10 MG TABLET ONE (03:45)
[2020-11-17] MEDS ORDERED: METHADONE HCL 40 MG DISPERSABLE TABLET ONE (03:45)
[2020-11-17] MEDS: TORSEMIDE 20 MG TABLET (FP) PO SCH ×2 (06:30→13:50)
[2020-11-17] MEDS: metFORMIN HCL 500 MG TABLET (FP) PO SCH ×2 (06:30→16:58)
[2020-11-17] MEDS: METHADONE 40 MG, METHADONE 20 MG PO SCH (06:31)
[2020-11-17] MEDS: PRENATAL VITAMINS W/ FOLIC ACID TABLET (FP) PO SCH (09:55)
[2020-11-17] MEDS: BUDESONIDE/FORMETEROL FUMARATE 160/4.5 mcg INHALER IH SCH ×2 (09:55→21:35)
[2020-11-17] MEDS: BACITRACIN 0.9 GM PACKET TP SCH ×2 (09:55→21:33)
[2020-11-17] MEDS: LISINOPRIL 20 MG TABLET PO SCH (09:55)
[2020-11-17] MEDS: CARVEDILOL 12.5 MG TABLET (FP) PO SCH ×2 (09:56→21:33)
[2020-11-17] MEDS: DOXYCYCLINE HYCLATE 100 MG TABLET PO SCH ×2 (09:56→17:30)
[2020-11-17] MEDS: HYDROCORTISONE 2.5% TOPICAL CREAM 30 GM TUBE RC SCH ×2 (09:56→21:34)
[2020-11-17] MEDS: ASPIRIN 81 MG CHEWABLE TABLETS PO SCH (09:56)
[2020-11-17] MEDS: FERROUS SO4 325 MG TABLET (FP) PO SCH (09:56)
[2020-11-17] MEDS: NICOTINE POLACRILEX 4 MG GUM BUC PRN (09:57)
[2020-11-17] MEDS: NICOTINE 7 MG/24 HOURS TOPICAL PATCH TD SCH (09:57)
[2020-11-17] MEDS: SPIRONOLACTONE 25 MG TABLET PO SCH (09:59)
[2020-11-17] MEDS: CYANOCOBALAMIN (VITAMIN B-12) 100 MCG TABLET PO SCH (09:59)
[2020-11-17] MEDS: AMMONIUM LACTATE 12% LOTION 225 GM BOTTLE TP PRN (10:02)
[2020-11-17] MEDS: MELATONIN 5 MG TABLETS PO SCH (21:33)
[2020-11-17] MEDS: ATORVASTATIN CA 40 MG TABLET (FP) PO SCH (21:33)
[2020-11-17] MEDS: QUEtiapine FUMARATE 50 MG TABLET PO SCH (21:33)
[2020-11-17] MEDS: NAPROXEN 500 MG TABLET PO PRN (21:33)
[2020-11-17] MEDS: THIAMINE HCL 100 MG TABLET (FP) PO SCH (21:33)
[2020-11-17] MEDS: hydrOXYzine PAMOATE 25 MG CAPSULE (FP) PO PRN (21:35)
[2020-11-18] MEDS ORDERED: METHADONE HCL 40 MG DISPERSABLE TABLET ONE (04:26)
[2020-11-18] MEDS ORDERED: METHADONE HCL 10 MG TABLET ONE (04:26)
[2020-11-18] MEDS: TORSEMIDE 20 MG TABLET (FP) PO SCH ×2 (06:32→14:05)
[2020-11-18] MEDS: METHADONE 40 MG, METHADONE 20 MG PO SCH (06:32)
[2020-11-18] MEDS: metFORMIN HCL 500 MG TABLET (FP) PO SCH ×2 (06:32→16:42)
[2020-11-18] MEDS: BUDESONIDE/FORMETEROL FUMARATE 160/4.5 mcg INHALER IH SCH ×2 (09:53→21:31)
[2020-11-18] MEDS: ASPIRIN 81 MG CHEWABLE TABLETS PO SCH (09:53)
[2020-11-18] MEDS: FERROUS SO4 325 MG TABLET (FP) PO SCH (09:53)
[2020-11-18] MEDS: LISINOPRIL 20 MG TABLET PO SCH (09:53)
[2020-11-18] MEDS: BACITRACIN 0.9 GM PACKET TP SCH ×2 (09:53→21:29)
[2020-11-18] MEDS: PRENATAL VITAMINS W/ FOLIC ACID TABLET (FP) PO SCH (09:53)
[2020-11-18] MEDS: CYANOCOBALAMIN (VITAMIN B-12) 100 MCG TABLET PO SCH (09:54)
[2020-11-18] MEDS: CARVEDILOL 12.5 MG TABLET (FP) PO SCH ×2 (09:54→21:29)
[2020-11-18] MEDS: SPIRONOLACTONE 25 MG TABLET PO SCH (09:54)
[2020-11-18] MEDS: NICOTINE POLACRILEX 4 MG GUM BUC PRN (09:56)
[2020-11-18] MEDS: NICOTINE 7 MG/24 HOURS TOPICAL PATCH TD SCH (09:56)
[2020-11-18] MEDS: HYDROCORTISONE 2.5% TOPICAL CREAM 30 GM TUBE RC SCH ×2 (09:56→21:26)
[2020-11-18] MEDS: THIAMINE HCL 100 MG TABLET (FP) PO SCH (21:26)
[2020-11-18] MEDS: NAPROXEN 500 MG TABLET PO PRN (21:26)
[2020-11-18] MEDS: MELATONIN 5 MG TABLETS PO SCH (21:26)
[2020-11-18] MEDS: hydrOXYzine PAMOATE 25 MG CAPSULE (FP) PO PRN (21:26)
[2020-11-18] MEDS: QUEtiapine FUMARATE 50 MG TABLET PO SCH (21:26)
[2020-11-18] MEDS: METHOCARBAMOL 500 MG TABLET PO PRN (21:26)
[2020-11-18] MEDS: ATORVASTATIN CA 40 MG TABLET (FP) PO SCH (21:26)
[2020-11-19] MEDS ORDERED: METHADONE HCL 10 MG TABLET ONE (03:19)
[2020-11-19] MEDS ORDERED: METHADONE HCL 40 MG DISPERSABLE TABLET ONE (03:20)
[2020-11-19] MEDS: metFORMIN HCL 500 MG TABLET (FP) PO SCH ×2 (06:29→16:55)
[2020-11-19] MEDS: TORSEMIDE 20 MG TABLET (FP) PO SCH ×2 (06:29→14:44)
[2020-11-19] MEDS ORDERED: METHADONE HCL 10 MG TABLET PO SCH (07:00)
[2020-11-19] MEDS: METHADONE 40 MG, METHADONE 20 MG PO SCH (07:37)
[2020-11-19] MEDS: CARVEDILOL 12.5 MG TABLET (FP) PO SCH ×2 (09:35→21:20)
[2020-11-19] MEDS: SPIRONOLACTONE 25 MG TABLET PO SCH (09:35)
[2020-11-19] MEDS: ASPIRIN 81 MG CHEWABLE TABLETS PO SCH (09:35)
[2020-11-19] MEDS: CYANOCOBALAMIN (VITAMIN B-12) 100 MCG TABLET PO SCH (09:35)
[2020-11-19] MEDS: FERROUS SO4 325 MG TABLET (FP) PO SCH (09:35)
[2020-11-19] MEDS: PRENATAL VITAMINS W/ FOLIC ACID TABLET (FP) PO SCH (09:35)
[2020-11-19] MEDS: BUDESONIDE/FORMETEROL FUMARATE 160/4.5 mcg INHALER IH SCH ×2 (09:35→21:20)
[2020-11-19] MEDS: LISINOPRIL 20 MG TABLET PO SCH (09:35)
[2020-11-19] MEDS: BACITRACIN 0.9 GM PACKET TP SCH ×2 (09:35→21:20)
[2020-11-19] MEDS: NICOTINE 7 MG/24 HOURS TOPICAL PATCH TD SCH (09:36)
[2020-11-19] MEDS: HYDROCORTISONE 2.5% TOPICAL CREAM 30 GM TUBE RC SCH (09:36)
[2020-11-19] MEDS: NAPROXEN 500 MG TABLET PO PRN (21:20)
[2020-11-19] MEDS: METHOCARBAMOL 500 MG TABLET PO PRN (21:20)
[2020-11-19] MEDS: QUEtiapine FUMARATE 50 MG TABLET PO SCH (21:20)
[2020-11-19] MEDS: COLLOIDAL OATMEAL 1 BAR EACH TP PRN (21:20)
[2020-11-19] MEDS: hydrOXYzine PAMOATE 25 MG CAPSULE (FP) PO PRN (21:20)
[2020-11-19] MEDS: MELATONIN 5 MG TABLETS PO SCH (21:20)
[2020-11-19] MEDS: THIAMINE HCL 100 MG TABLET (FP) PO SCH (21:20)
[2020-11-19] MEDS: ATORVASTATIN CA 40 MG TABLET (FP) PO SCH (21:20)
[2020-11-20] MEDS ORDERED: METHADONE HCL 10 MG TABLET ONE (03:28)
[2020-11-20] MEDS ORDERED: METHADONE HCL 40 MG DISPERSABLE TABLET ONE (03:28)
[2020-11-20] MEDS: METHADONE 40 MG, METHADONE 20 MG PO SCH (06:38)
[2020-11-20] MEDS: metFORMIN HCL 500 MG TABLET (FP) PO SCH ×2 (06:38→16:45)
[2020-11-20] MEDS: TORSEMIDE 20 MG TABLET (FP) PO SCH ×2 (06:41→13:21)
[2020-11-20] MEDS: ASPIRIN 81 MG CHEWABLE TABLETS PO SCH (09:30)
[2020-11-20] MEDS: BACITRACIN 0.9 GM PACKET TP SCH ×2 (09:30→21:12)
[2020-11-20] MEDS: CARVEDILOL 12.5 MG TABLET (FP) PO SCH ×2 (09:30→21:12)
[2020-11-20] MEDS: SPIRONOLACTONE 25 MG TABLET PO SCH (09:30)
[2020-11-20] MEDS: FERROUS SO4 325 MG TABLET (FP) PO SCH (09:31)
[2020-11-20] MEDS: NICOTINE 7 MG/24 HOURS TOPICAL PATCH TD SCH (09:31)
[2020-11-20] MEDS: PRENATAL VITAMINS W/ FOLIC ACID TABLET (FP) PO SCH (09:31)
[2020-11-20] MEDS: LISINOPRIL 20 MG TABLET PO SCH (09:31)
[2020-11-20] MEDS: BUDESONIDE/FORMETEROL FUMARATE 160/4.5 mcg INHALER IH SCH ×2 (09:31→21:13)
[2020-11-20] MEDS: CYANOCOBALAMIN (VITAMIN B-12) 100 MCG TABLET PO SCH (09:32)
[2020-11-20] MEDS: hydrOXYzine PAMOATE 25 MG CAPSULE (FP) PO PRN (21:12)
[2020-11-20] MEDS: NAPROXEN 500 MG TABLET PO PRN (21:12)
[2020-11-20] MEDS: ATORVASTATIN CA 40 MG TABLET (FP) PO SCH (21:12)
[2020-11-20] MEDS: THIAMINE HCL 100 MG TABLET (FP) PO SCH (21:12)
[2020-11-20] MEDS: QUEtiapine FUMARATE 50 MG TABLET PO SCH (21:12)
[2020-11-20] MEDS: METHOCARBAMOL 500 MG TABLET PO PRN (21:12)
[2020-11-20] MEDS: MELATONIN 5 MG TABLETS PO SCH (21:12)
[2020-11-21] MEDS ORDERED: METHADONE HCL 40 MG DISPERSABLE TABLET ONE (03:19)
[2020-11-21] MEDS ORDERED: METHADONE HCL 10 MG TABLET ONE (03:19)
[2020-11-21] MEDS: metFORMIN HCL 500 MG TABLET (FP) PO SCH ×2 (06:16→16:59)
[2020-11-21] MEDS: TORSEMIDE 20 MG TABLET (FP) PO SCH ×2 (06:16→14:33)
[2020-11-21] MEDS: METHADONE 40 MG, METHADONE 20 MG PO SCH (06:16)
[2020-11-21] MEDS: FERROUS SO4 325 MG TABLET (FP) PO SCH (09:42)
[2020-11-21] MEDS: CARVEDILOL 12.5 MG TABLET (FP) PO SCH ×2 (09:42→21:34)
[2020-11-21] MEDS: LISINOPRIL 20 MG TABLET PO SCH (09:42)
[2020-11-21] MEDS: BUDESONIDE/FORMETEROL FUMARATE 160/4.5 mcg INHALER IH SCH ×2 (09:42→21:35)
[2020-11-21] MEDS: ASPIRIN 81 MG CHEWABLE TABLETS PO SCH (09:42)
[2020-11-21] MEDS: CYANOCOBALAMIN (VITAMIN B-12) 100 MCG TABLET PO SCH (09:42)
[2020-11-21] MEDS: BACITRACIN 0.9 GM PACKET TP SCH ×2 (09:42→21:33)
[2020-11-21] MEDS: PRENATAL VITAMINS W/ FOLIC ACID TABLET (FP) PO SCH (09:43)
[2020-11-21] MEDS: NICOTINE 7 MG/24 HOURS TOPICAL PATCH TD SCH (09:43)
[2020-11-21] MEDS: NICOTINE POLACRILEX 4 MG GUM BUC PRN (09:43)
[2020-11-21] MEDS: SPIRONOLACTONE 25 MG TABLET PO SCH (09:43)
[2020-11-21] MEDS: THIAMINE HCL 100 MG TABLET (FP) PO SCH (21:33)
[2020-11-21] MEDS: ATORVASTATIN CA 40 MG TABLET (FP) PO SCH (21:33)
[2020-11-21] MEDS: MELATONIN 5 MG TABLETS PO SCH (21:33)
[2020-11-21] MEDS: QUEtiapine FUMARATE 50 MG TABLET PO SCH (21:33)
[2020-11-22] MEDS ORDERED: METHADONE HCL 10 MG TABLET ONE (04:19)
[2020-11-22] MEDS ORDERED: METHADONE HCL 40 MG DISPERSABLE TABLET ONE (04:19)
[2020-11-22] MEDS: TORSEMIDE 20 MG TABLET (FP) PO SCH ×2 (06:32→14:20)
[2020-11-22] MEDS: metFORMIN HCL 500 MG TABLET (FP) PO SCH ×2 (06:32→17:08)
[2020-11-22] MEDS: METHADONE 40 MG, METHADONE 20 MG PO SCH (06:32)
[2020-11-22] MEDS: ASPIRIN 81 MG CHEWABLE TABLETS PO SCH (10:02)
[2020-11-22] MEDS: LISINOPRIL 20 MG TABLET PO SCH (10:02)
[2020-11-22] MEDS: BACITRACIN 0.9 GM PACKET TP SCH ×2 (10:02→21:40)
[2020-11-22] MEDS: FERROUS SO4 325 MG TABLET (FP) PO SCH (10:02)
[2020-11-22] MEDS: SPIRONOLACTONE 25 MG TABLET PO SCH (10:02)
[2020-11-22] MEDS: CARVEDILOL 12.5 MG TABLET (FP) PO SCH ×2 (10:03→21:40)
[2020-11-22] MEDS: CYANOCOBALAMIN (VITAMIN B-12) 100 MCG TABLET PO SCH (10:03)
[2020-11-22] MEDS: PRENATAL VITAMINS W/ FOLIC ACID TABLET (FP) PO SCH (10:03)
[2020-11-22] MEDS: NICOTINE 7 MG/24 HOURS TOPICAL PATCH TD SCH (10:03)
[2020-11-22] MEDS: BUDESONIDE/FORMETEROL FUMARATE 160/4.5 mcg INHALER IH SCH ×2 (10:03→21:39)
[2020-11-22] MEDS: NICOTINE POLACRILEX 4 MG GUM BUC PRN (14:20)
[2020-11-22] MEDS: NAPROXEN 500 MG TABLET PO PRN (21:40)
[2020-11-22] MEDS: MELATONIN 5 MG TABLETS PO SCH (21:40)
[2020-11-22] MEDS: hydrOXYzine PAMOATE 25 MG CAPSULE (FP) PO PRN (21:40)
[2020-11-22] MEDS: QUEtiapine FUMARATE 50 MG TABLET PO SCH (21:40)
[2020-11-22] MEDS: THIAMINE HCL 100 MG TABLET (FP) PO SCH (21:40)
[2020-11-22] MEDS: ATORVASTATIN CA 40 MG TABLET (FP) PO SCH (21:40)
[2020-11-23] MEDS ORDERED: METHADONE HCL 10 MG TABLET ONE (05:54)
[2020-11-23] MEDS ORDERED: METHADONE HCL 40 MG DISPERSABLE TABLET ONE (05:54)
[2020-11-23] MEDS: METHADONE 40 MG, METHADONE 20 MG PO SCH (06:55)
[2020-11-23] MEDS: TORSEMIDE 20 MG TABLET (FP) PO SCH ×2 (06:55→14:11)
[2020-11-23] MEDS: metFORMIN HCL 500 MG TABLET (FP) PO SCH ×2 (07:04→17:16)
[2020-11-23] MEDS: ASPIRIN 81 MG CHEWABLE TABLETS PO SCH (09:56)
[2020-11-23] MEDS: FERROUS SO4 325 MG TABLET (FP) PO SCH (09:56)
[2020-11-23] MEDS: BUDESONIDE/FORMETEROL FUMARATE 160/4.5 mcg INHALER IH SCH ×2 (09:56→21:40)
[2020-11-23] MEDS: BACITRACIN 0.9 GM PACKET TP SCH ×2 (09:56→21:40)
[2020-11-23] MEDS: LISINOPRIL 20 MG TABLET PO SCH (09:57)
[2020-11-23] MEDS: CARVEDILOL 12.5 MG TABLET (FP) PO SCH ×2 (09:57→21:40)
[2020-11-23] MEDS: NICOTINE 7 MG/24 HOURS TOPICAL PATCH TD SCH (09:57)
[2020-11-23] MEDS: SPIRONOLACTONE 25 MG TABLET PO SCH (09:57)
[2020-11-23] MEDS: PRENATAL VITAMINS W/ FOLIC ACID TABLET (FP) PO SCH (09:57)
[2020-11-23] MEDS: METHOCARBAMOL 500 MG TABLET PO PRN ×2 (09:58→21:40)
[2020-11-23] MEDS: CYANOCOBALAMIN (VITAMIN B-12) 100 MCG TABLET PO SCH (09:58)
[2020-11-23] MEDS: QUEtiapine FUMARATE 50 MG TABLET PO SCH (21:40)
[2020-11-23] MEDS: NAPROXEN 500 MG TABLET PO PRN (21:40)
[2020-11-23] MEDS: hydrOXYzine PAMOATE 25 MG CAPSULE (FP) PO PRN (21:40)
[2020-11-23] MEDS: MELATONIN 5 MG TABLETS PO SCH (21:40)
[2020-11-23] MEDS: ATORVASTATIN CA 40 MG TABLET (FP) PO SCH (21:40)
[2020-11-23] MEDS: THIAMINE HCL 100 MG TABLET (FP) PO SCH (21:40)
[2020-11-24] MEDS ORDERED: METHADONE HCL 10 MG TABLET ONE (05:59)
[2020-11-24] MEDS ORDERED: METHADONE HCL 40 MG DISPERSABLE TABLET ONE (05:59)
[2020-11-24] MEDS: METHADONE 40 MG, METHADONE 20 MG PO SCH (06:27)
[2020-11-24] MEDS: TORSEMIDE 20 MG TABLET (FP) PO SCH ×2 (06:27→13:48)
[2020-11-24] MEDS: metFORMIN HCL 500 MG TABLET (FP) PO SCH ×2 (06:27→17:18)
[2020-11-24] MEDS: BUDESONIDE/FORMETEROL FUMARATE 160/4.5 mcg INHALER IH SCH ×2 (10:40→21:53)
[2020-11-24] MEDS: PRENATAL VITAMINS W/ FOLIC ACID TABLET (FP) PO SCH (10:41)
[2020-11-24] MEDS: BACITRACIN 0.9 GM PACKET TP SCH ×2 (10:41→22:21)
[2020-11-24] MEDS: CARVEDILOL 12.5 MG TABLET (FP) PO SCH ×2 (10:41→21:53)
[2020-11-24] MEDS: SPIRONOLACTONE 25 MG TABLET PO SCH (10:42)
[2020-11-24] MEDS: NICOTINE 7 MG/24 HOURS TOPICAL PATCH TD SCH (10:42)
[2020-11-24] MEDS: LISINOPRIL 20 MG TABLET PO SCH (10:42)
[2020-11-24] MEDS: FERROUS SO4 325 MG TABLET (FP) PO SCH (10:42)
[2020-11-24] MEDS: ASPIRIN 81 MG CHEWABLE TABLETS PO SCH (10:42)
[2020-11-24] MEDS: CYANOCOBALAMIN (VITAMIN B-12) 100 MCG TABLET PO SCH (10:43)
[2020-11-24] MEDS: NICOTINE POLACRILEX 4 MG GUM BUC PRN ×2 (10:43→21:55)
[2020-11-24] MEDS: MELATONIN 5 MG TABLETS PO SCH (21:53)
[2020-11-24] MEDS: ATORVASTATIN CA 40 MG TABLET (FP) PO SCH (21:53)
[2020-11-24] MEDS: THIAMINE HCL 100 MG TABLET (FP) PO SCH (21:53)
[2020-11-24] MEDS: hydrOXYzine PAMOATE 25 MG CAPSULE (FP) PO PRN (21:53)
[2020-11-24] MEDS: NAPROXEN 500 MG TABLET PO PRN (21:53)
[2020-11-24] MEDS: QUEtiapine FUMARATE 50 MG TABLET PO SCH (21:53)
[2020-11-25] MEDS ORDERED: METHADONE HCL 10 MG TABLET ONE (05:55)
[2020-11-25] MEDS ORDERED: METHADONE HCL 40 MG DISPERSABLE TABLET ONE (05:56)
[2020-11-25] MEDS: METHADONE 40 MG, METHADONE 20 MG PO SCH (07:00)
[2020-11-25] MEDS: metFORMIN HCL 500 MG TABLET (FP) PO SCH ×2 (07:01→17:02)
[2020-11-25] MEDS: TORSEMIDE 20 MG TABLET (FP) PO SCH ×2 (07:01→14:43)
[2020-11-25] MEDS: PRENATAL VITAMINS W/ FOLIC ACID TABLET (FP) PO SCH (09:54)
[2020-11-25] MEDS: SPIRONOLACTONE 25 MG TABLET PO SCH (09:55)
[2020-11-25] MEDS: CARVEDILOL 12.5 MG TABLET (FP) PO SCH ×2 (09:55→21:14)
[2020-11-25] MEDS: FERROUS SO4 325 MG TABLET (FP) PO SCH (09:55)
[2020-11-25] MEDS: BACITRACIN 0.9 GM PACKET TP SCH ×2 (09:55→21:24)
[2020-11-25] MEDS: BUDESONIDE/FORMETEROL FUMARATE 160/4.5 mcg INHALER IH SCH ×2 (09:55→21:14)
[2020-11-25] MEDS: LISINOPRIL 20 MG TABLET PO SCH (09:55)
[2020-11-25] MEDS: NICOTINE 7 MG/24 HOURS TOPICAL PATCH TD SCH (09:56)
[2020-11-25] MEDS: ASPIRIN 81 MG CHEWABLE TABLETS PO SCH (09:56)
[2020-11-25] MEDS: NICOTINE POLACRILEX 4 MG GUM BUC PRN ×2 (09:56→12:51)
[2020-11-25] MEDS: CYANOCOBALAMIN (VITAMIN B-12) 100 MCG TABLET PO SCH (09:58)
[2020-11-25] MEDS: WITCH HAZEL 50% (TUCKS) 40 PAD/JAR PAD TP PRN (12:51)
[2020-11-25] MEDS: AMMONIUM LACTATE 12% LOTION 225 GM BOTTLE TP PRN (17:59)
[2020-11-25] MEDS ORDERED: BENZOCAINE 28 GM HEMORRHOIDAL OINTMENT PR PRN (18:47)
[2020-11-25] MEDS: ATORVASTATIN CA 40 MG TABLET (FP) PO SCH (21:14)
[2020-11-25] MEDS: THIAMINE HCL 100 MG TABLET (FP) PO SCH (21:14)
[2020-11-25] MEDS: NAPROXEN 500 MG TABLET PO PRN (21:14)
[2020-11-25] MEDS: MELATONIN 5 MG TABLETS PO SCH (21:14)
[2020-11-25] MEDS: hydrOXYzine PAMOATE 25 MG CAPSULE (FP) PO PRN (21:14)
[2020-11-25] MEDS: QUEtiapine FUMARATE 50 MG TABLET PO SCH (21:14)
[2020-11-25] MEDS: METHOCARBAMOL 500 MG TABLET PO PRN (21:14)
[2020-11-26] MEDS ORDERED: METHADONE HCL 40 MG DISPERSABLE TABLET ONE (03:56)
[2020-11-26] MEDS ORDERED: METHADONE HCL 10 MG TABLET ONE (03:56)
[2020-11-26] MEDS: METHADONE 40 MG, METHADONE 20 MG PO SCH (06:29)
[2020-11-26] MEDS: metFORMIN HCL 500 MG TABLET (FP) PO SCH ×2 (06:31→16:47)
[2020-11-26] MEDS: TORSEMIDE 20 MG TABLET (FP) PO SCH ×2 (06:31→14:03)
[2020-11-26] MEDS: PRENATAL VITAMINS W/ FOLIC ACID TABLET (FP) PO SCH (09:36)
[2020-11-26] MEDS: ASPIRIN 81 MG CHEWABLE TABLETS PO SCH (09:36)
[2020-11-26] MEDS: BACITRACIN 0.9 GM PACKET TP SCH ×2 (09:36→21:34)
[2020-11-26] MEDS: BUDESONIDE/FORMETEROL FUMARATE 160/4.5 mcg INHALER IH SCH ×2 (09:36→21:33)
[2020-11-26] MEDS: SPIRONOLACTONE 25 MG TABLET PO SCH (09:37)
[2020-11-26] MEDS: FERROUS SO4 325 MG TABLET (FP) PO SCH (09:37)
[2020-11-26] MEDS: CARVEDILOL 12.5 MG TABLET (FP) PO SCH ×2 (09:37→21:36)
[2020-11-26] MEDS: CYANOCOBALAMIN (VITAMIN B-12) 100 MCG TABLET PO SCH (09:37)
[2020-11-26] MEDS: LISINOPRIL 20 MG TABLET PO SCH (09:37)
[2020-11-26] MEDS: NICOTINE POLACRILEX 4 MG GUM BUC PRN ×2 (09:38→14:26)
[2020-11-26] MEDS: NICOTINE 7 MG/24 HOURS TOPICAL PATCH TD SCH (09:38)
[2020-11-26] MEDS: HYDROCORTISONE 2.5% TOPICAL CREAM 30 GM TUBE PR SCH (10:29)
[2020-11-26] MEDS: ATORVASTATIN CA 40 MG TABLET (FP) PO SCH (21:34)
[2020-11-26] MEDS: NAPROXEN 500 MG TABLET PO PRN (21:34)
[2020-11-26] MEDS: METHOCARBAMOL 500 MG TABLET PO PRN (21:34)
[2020-11-26] MEDS: QUEtiapine FUMARATE 50 MG TABLET PO SCH (21:34)
[2020-11-26] MEDS: MELATONIN 5 MG TABLETS PO SCH (21:34)
[2020-11-26] MEDS: THIAMINE HCL 100 MG TABLET (FP) PO SCH (21:35)
[2020-11-27] MEDS ORDERED: METHADONE HCL 10 MG TABLET ONE (04:20)
[2020-11-27] MEDS ORDERED: METHADONE HCL 40 MG DISPERSABLE TABLET ONE (04:20)
[2020-11-27] MEDS: METHADONE 40 MG, METHADONE 20 MG PO SCH (06:47)
[2020-11-27] MEDS: metFORMIN HCL 500 MG TABLET (FP) PO SCH ×2 (06:47→16:52)
[2020-11-27] MEDS: TORSEMIDE 20 MG TABLET (FP) PO SCH ×2 (06:47→13:07)
[2020-11-27] MEDS: PRENATAL VITAMINS W/ FOLIC ACID TABLET (FP) PO SCH (09:36)
[2020-11-27] MEDS: FERROUS SO4 325 MG TABLET (FP) PO SCH (09:37)
[2020-11-27] MEDS: BUDESONIDE/FORMETEROL FUMARATE 160/4.5 mcg INHALER IH SCH ×2 (09:37→21:29)
[2020-11-27] MEDS: BACITRACIN 0.9 GM PACKET TP SCH ×2 (09:37→21:31)
[2020-11-27] MEDS: ASPIRIN 81 MG CHEWABLE TABLETS PO SCH (09:37)
[2020-11-27] MEDS: LISINOPRIL 20 MG TABLET PO SCH (09:37)
[2020-11-27] MEDS: CYANOCOBALAMIN (VITAMIN B-12) 100 MCG TABLET PO SCH (09:38)
[2020-11-27] MEDS: SPIRONOLACTONE 25 MG TABLET PO SCH (09:38)
[2020-11-27] MEDS: NICOTINE POLACRILEX 4 MG GUM BUC PRN ×2 (09:38→17:50)
[2020-11-27] MEDS: CARVEDILOL 12.5 MG TABLET (FP) PO SCH ×2 (09:38→21:29)
[2020-11-27] MEDS: HYDROCORTISONE 2.5% TOPICAL CREAM 30 GM TUBE PR SCH (09:38)
[2020-11-27] MEDS: AMMONIUM LACTATE 12% LOTION 225 GM BOTTLE TP PRN (09:41)
[2020-11-27] MEDS: NICOTINE 7 MG/24 HOURS TOPICAL PATCH TD SCH (09:45)
[2020-11-27] MEDS: MELATONIN 5 MG TABLETS PO SCH (21:29)
[2020-11-27] MEDS: ATORVASTATIN CA 40 MG TABLET (FP) PO SCH (21:29)
[2020-11-27] MEDS: THIAMINE HCL 100 MG TABLET (FP) PO SCH (21:29)
[2020-11-27] MEDS: NAPROXEN 500 MG TABLET PO PRN (21:30)
[2020-11-27] MEDS: hydrOXYzine PAMOATE 25 MG CAPSULE (FP) PO PRN (21:30)
[2020-11-27] MEDS: METHOCARBAMOL 500 MG TABLET PO PRN (21:30)
[2020-11-27] MEDS: QUEtiapine FUMARATE 50 MG TABLET PO SCH (21:30)
[2020-11-28] MEDS ORDERED: METHADONE HCL 10 MG TABLET ONE (04:57)
[2020-11-28] MEDS ORDERED: METHADONE HCL 40 MG DISPERSABLE TABLET ONE (04:58)
[2020-11-28] MEDS: METHADONE 40 MG, METHADONE 20 MG PO SCH (06:36)
[2020-11-28] MEDS: TORSEMIDE 20 MG TABLET (FP) PO SCH ×2 (06:37→13:11)
[2020-11-28] MEDS: metFORMIN HCL 500 MG TABLET (FP) PO SCH ×2 (06:37→16:57)
[2020-11-28] MEDS: SPIRONOLACTONE 25 MG TABLET PO SCH (09:47)
[2020-11-28] MEDS: BUDESONIDE/FORMETEROL FUMARATE 160/4.5 mcg INHALER IH SCH ×2 (09:47→21:22)
[2020-11-28] MEDS: FERROUS SO4 325 MG TABLET (FP) PO SCH (09:47)
[2020-11-28] MEDS: BACITRACIN 0.9 GM PACKET TP SCH ×2 (09:47→21:23)
[2020-11-28] MEDS: PRENATAL VITAMINS W/ FOLIC ACID TABLET (FP) PO SCH (09:47)
[2020-11-28] MEDS: CARVEDILOL 12.5 MG TABLET (FP) PO SCH ×2 (09:47→21:23)
[2020-11-28] MEDS: CYANOCOBALAMIN (VITAMIN B-12) 100 MCG TABLET PO SCH (09:47)
[2020-11-28] MEDS: ASPIRIN 81 MG CHEWABLE TABLETS PO SCH (09:47)
[2020-11-28] MEDS: LISINOPRIL 20 MG TABLET PO SCH (09:48)
[2020-11-28] MEDS: NICOTINE POLACRILEX 4 MG GUM BUC PRN (09:49)
[2020-11-28] MEDS: NICOTINE 7 MG/24 HOURS TOPICAL PATCH TD SCH (09:49)
[2020-11-28] MEDS: HYDROCORTISONE 2.5% TOPICAL CREAM 30 GM TUBE PR SCH (09:49)
[2020-11-28] MEDS: MELATONIN 5 MG TABLETS PO SCH (21:23)
[2020-11-28] MEDS: THIAMINE HCL 100 MG TABLET (FP) PO SCH (21:23)
[2020-11-28] MEDS: hydrOXYzine PAMOATE 25 MG CAPSULE (FP) PO PRN (21:23)
[2020-11-28] MEDS: METHOCARBAMOL 500 MG TABLET PO PRN (21:23)
[2020-11-28] MEDS: ATORVASTATIN CA 40 MG TABLET (FP) PO SCH (21:23)
[2020-11-28] MEDS: QUEtiapine FUMARATE 50 MG TABLET PO SCH (21:23)
[2020-11-28] MEDS: NAPROXEN 500 MG TABLET PO PRN (21:23)
[2020-11-29] MEDS ORDERED: METHADONE HCL 40 MG DISPERSABLE TABLET ONE (03:40)
[2020-11-29] MEDS ORDERED: METHADONE HCL 10 MG TABLET ONE (03:40)
[2020-11-29] MEDS: TORSEMIDE 20 MG TABLET (FP) PO SCH ×2 (06:27→14:12)
[2020-11-29] MEDS: metFORMIN HCL 500 MG TABLET (FP) PO SCH ×2 (06:27→16:39)
[2020-11-29] MEDS: METHADONE 40 MG, METHADONE 20 MG PO SCH (06:27)
[2020-11-29] MEDS: FERROUS SO4 325 MG TABLET (FP) PO SCH (09:39)
[2020-11-29] MEDS: ASPIRIN 81 MG CHEWABLE TABLETS PO SCH (09:39)
[2020-11-29] MEDS: BACITRACIN 0.9 GM PACKET TP SCH ×2 (09:39→21:16)
[2020-11-29] MEDS: LISINOPRIL 20 MG TABLET PO SCH (09:40)
[2020-11-29] MEDS: SPIRONOLACTONE 25 MG TABLET PO SCH (09:40)
[2020-11-29] MEDS: BUDESONIDE/FORMETEROL FUMARATE 160/4.5 mcg INHALER IH SCH ×2 (09:41→21:16)
[2020-11-29] MEDS: PRENATAL VITAMINS W/ FOLIC ACID TABLET (FP) PO SCH (09:41)
[2020-11-29] MEDS: NICOTINE 7 MG/24 HOURS TOPICAL PATCH TD SCH (09:41)
[2020-11-29] MEDS: CARVEDILOL 12.5 MG TABLET (FP) PO SCH ×2 (09:41→21:17)
[2020-11-29] MEDS: HYDROCORTISONE 2.5% TOPICAL CREAM 30 GM TUBE PR SCH (09:41)
[2020-11-29] MEDS: CYANOCOBALAMIN (VITAMIN B-12) 100 MCG TABLET PO SCH (09:42)
[2020-11-29] MEDS: NICOTINE POLACRILEX 4 MG GUM BUC PRN (16:40)
[2020-11-29] MEDS: NAPROXEN 500 MG TABLET PO PRN (21:17)
[2020-11-29] MEDS: METHOCARBAMOL 500 MG TABLET PO PRN (21:17)
[2020-11-29] MEDS: hydrOXYzine PAMOATE 25 MG CAPSULE (FP) PO PRN (21:17)
[2020-11-29] MEDS: QUEtiapine FUMARATE 50 MG TABLET PO SCH (21:17)
[2020-11-29] MEDS: ATORVASTATIN CA 40 MG TABLET (FP) PO SCH (21:17)
[2020-11-29] MEDS: THIAMINE HCL 100 MG TABLET (FP) PO SCH (21:17)
[2020-11-29] MEDS: MELATONIN 5 MG TABLETS PO SCH (21:17)
[2020-11-30] MEDS ORDERED: METHADONE HCL 40 MG DISPERSABLE TABLET ONE (03:37)
[2020-11-30] MEDS ORDERED: METHADONE HCL 10 MG TABLET ONE (03:37)
[2020-11-30] MEDS: METHADONE 40 MG, METHADONE 20 MG PO SCH (06:20)
[2020-11-30] MEDS: metFORMIN HCL 500 MG TABLET (FP) PO SCH ×2 (06:21→16:38)
[2020-11-30] MEDS: TORSEMIDE 20 MG TABLET (FP) PO SCH ×2 (06:21→13:36)
[2020-11-30] MEDS: SPIRONOLACTONE 25 MG TABLET PO SCH (09:02)
[2020-11-30] MEDS: FERROUS SO4 325 MG TABLET (FP) PO SCH (09:02)
[2020-11-30] MEDS: BACITRACIN 0.9 GM PACKET TP SCH ×2 (09:02→21:26)
[2020-11-30] MEDS: BUDESONIDE/FORMETEROL FUMARATE 160/4.5 mcg INHALER IH SCH ×2 (09:02→21:26)
[2020-11-30] MEDS: CARVEDILOL 12.5 MG TABLET (FP) PO SCH ×2 (09:02→21:26)
[2020-11-30] MEDS: LISINOPRIL 20 MG TABLET PO SCH (09:02)
[2020-11-30] MEDS: ASPIRIN 81 MG CHEWABLE TABLETS PO SCH (09:02)
[2020-11-30] MEDS: PRENATAL VITAMINS W/ FOLIC ACID TABLET (FP) PO SCH (09:02)
[2020-11-30] MEDS: HYDROCORTISONE 2.5% TOPICAL CREAM 30 GM TUBE PR SCH (09:03)
[2020-11-30] MEDS: CYANOCOBALAMIN (VITAMIN B-12) 100 MCG TABLET PO SCH (09:03)
[2020-11-30] MEDS: NICOTINE POLACRILEX 4 MG GUM BUC PRN (09:04)
[2020-11-30] MEDS: NICOTINE 7 MG/24 HOURS TOPICAL PATCH TD SCH (09:04)
[2020-11-30] MEDS: ATORVASTATIN CA 40 MG TABLET (FP) PO SCH (21:26)
[2020-11-30] MEDS: QUEtiapine FUMARATE 50 MG TABLET PO SCH (21:27)
[2020-11-30] MEDS: MELATONIN 5 MG TABLETS PO SCH (21:27)
[2020-11-30] MEDS: THIAMINE HCL 100 MG TABLET (FP) PO SCH (21:29)
[2020-12-01] MEDS ORDERED: METHADONE HCL 40 MG DISPERSABLE TABLET ONE (03:21)
[2020-12-01] MEDS ORDERED: METHADONE HCL 10 MG TABLET ONE (03:21)
[2020-12-01] MEDS: METHADONE 40 MG, METHADONE 20 MG PO SCH (06:25)
[2020-12-01] MEDS: TORSEMIDE 20 MG TABLET (FP) PO SCH ×2 (06:25→15:20)
[2020-12-01] MEDS: metFORMIN HCL 500 MG TABLET (FP) PO SCH ×2 (06:26→17:19)
[2020-12-01] MEDS: PRENATAL VITAMINS W/ FOLIC ACID TABLET (FP) PO SCH (09:25)
[2020-12-01] MEDS: BACITRACIN 0.9 GM PACKET TP SCH ×2 (09:26→22:00)
[2020-12-01] MEDS: ASPIRIN 81 MG CHEWABLE TABLETS PO SCH (09:26)
[2020-12-01] MEDS: CYANOCOBALAMIN (VITAMIN B-12) 100 MCG TABLET PO SCH (09:26)
[2020-12-01] MEDS: SPIRONOLACTONE 25 MG TABLET PO SCH (09:26)
[2020-12-01] MEDS: BUDESONIDE/FORMETEROL FUMARATE 160/4.5 mcg INHALER IH SCH ×2 (09:26→22:00)
[2020-12-01] MEDS: LISINOPRIL 20 MG TABLET PO SCH (09:27)
[2020-12-01] MEDS: FERROUS SO4 325 MG TABLET (FP) PO SCH (09:27)
[2020-12-01] MEDS: CARVEDILOL 12.5 MG TABLET (FP) PO SCH ×2 (09:29→22:00)
[2020-12-01] MEDS: HYDROCORTISONE 2.5% TOPICAL CREAM 30 GM TUBE PR SCH (09:31)
[2020-12-01] MEDS: AMMONIUM LACTATE 12% LOTION 225 GM BOTTLE TP PRN (09:31)
[2020-12-01] MEDS: NICOTINE 7 MG/24 HOURS TOPICAL PATCH TD SCH (09:32)
[2020-12-01] MEDS: NICOTINE POLACRILEX 4 MG GUM BUC PRN (09:32)
[2020-12-01] MEDS: QUEtiapine FUMARATE 50 MG TABLET PO SCH (21:59)
[2020-12-01] MEDS: THIAMINE HCL 100 MG TABLET (FP) PO SCH (21:59)
[2020-12-01] MEDS: MELATONIN 5 MG TABLETS PO SCH (22:00)
[2020-12-01] MEDS: NAPROXEN 500 MG TABLET PO PRN (22:00)
[2020-12-01] MEDS: ATORVASTATIN CA 40 MG TABLET (FP) PO SCH (22:00)
[2020-12-02] MEDS ORDERED: METHADONE HCL 40 MG DISPERSABLE TABLET ONE (04:45)
[2020-12-02] MEDS ORDERED: METHADONE HCL 10 MG TABLET ONE (04:45)
[2020-12-02] MEDS: METHADONE 40 MG, METHADONE 20 MG PO SCH (06:28)
[2020-12-02] MEDS: metFORMIN HCL 500 MG TABLET (FP) PO SCH ×2 (06:29→17:06)
[2020-12-02] MEDS: TORSEMIDE 20 MG TABLET (FP) PO SCH ×2 (06:29→14:47)
[2020-12-02] MEDS: SPIRONOLACTONE 25 MG TABLET PO SCH (09:44)
[2020-12-02] MEDS: ASPIRIN 81 MG CHEWABLE TABLETS PO SCH (09:44)
[2020-12-02] MEDS: FERROUS SO4 325 MG TABLET (FP) PO SCH (09:44)
[2020-12-02] MEDS: CARVEDILOL 12.5 MG TABLET (FP) PO SCH ×2 (09:44→21:31)
[2020-12-02] MEDS: LISINOPRIL 20 MG TABLET PO SCH (09:44)
[2020-12-02] MEDS: CYANOCOBALAMIN (VITAMIN B-12) 100 MCG TABLET PO SCH (09:45)
[2020-12-02] MEDS: NICOTINE 7 MG/24 HOURS TOPICAL PATCH TD SCH (09:45)
[2020-12-02] MEDS: PRENATAL VITAMINS W/ FOLIC ACID TABLET (FP) PO SCH (09:45)
[2020-12-02] MEDS: BACITRACIN 0.9 GM PACKET TP SCH ×2 (09:45→21:32)
[2020-12-02] MEDS: HYDROCORTISONE 2.5% TOPICAL CREAM 30 GM TUBE PR SCH (09:46)
[2020-12-02] MEDS: BUDESONIDE/FORMETEROL FUMARATE 160/4.5 mcg INHALER IH SCH ×2 (09:48→21:30)
[2020-12-02] MEDS: COLLOIDAL OATMEAL 1 BAR EACH TP PRN (18:44)
[2020-12-02] MEDS: NAPROXEN 500 MG TABLET PO PRN (21:31)
[2020-12-02] MEDS: THIAMINE HCL 100 MG TABLET (FP) PO SCH (21:31)
[2020-12-02] MEDS: MELATONIN 5 MG TABLETS PO SCH (21:31)
[2020-12-02] MEDS: hydrOXYzine PAMOATE 25 MG CAPSULE (FP) PO PRN (21:31)
[2020-12-02] MEDS: QUEtiapine FUMARATE 50 MG TABLET PO SCH (21:31)
[2020-12-02] MEDS: ATORVASTATIN CA 40 MG TABLET (FP) PO SCH (21:31)
[2020-12-02] MEDS: METHOCARBAMOL 500 MG TABLET PO PRN (21:31)
[2020-12-03] MEDS ORDERED: METHADONE HCL 10 MG TABLET ONE (03:34)
[2020-12-03] MEDS ORDERED: METHADONE HCL 40 MG DISPERSABLE TABLET ONE (03:35)
[2020-12-03] MEDS: TORSEMIDE 20 MG TABLET (FP) PO SCH (06:22)
[2020-12-03] MEDS: metFORMIN HCL 500 MG TABLET (FP) PO SCH (06:22)
[2020-12-03] MEDS: METHADONE 40 MG, METHADONE 20 MG PO SCH (06:22)
[2020-12-03 06:49] VITALS: BP 122/76; PULSE 64; TEMP 98
[2020-12-03] MEDS: BACITRACIN 0.9 GM PACKET TP SCH (09:11)
[2020-12-03] MEDS: FERROUS SO4 325 MG TABLET (FP) PO SCH (09:11)
[2020-12-03] MEDS: LISINOPRIL 20 MG TABLET PO SCH (09:11)
[2020-12-03] MEDS: ASPIRIN 81 MG CHEWABLE TABLETS PO SCH (09:11)
[2020-12-03] MEDS: BUDESONIDE/FORMETEROL FUMARATE 160/4.5 mcg INHALER IH SCH (09:12)
[2020-12-03] MEDS: NICOTINE 7 MG/24 HOURS TOPICAL PATCH TD SCH (09:12)
[2020-12-03] MEDS: PRENATAL VITAMINS W/ FOLIC ACID TABLET (FP) PO SCH (09:12)
[2020-12-03] MEDS: CARVEDILOL 12.5 MG TABLET (FP) PO SCH (09:12)
[2020-12-03] MEDS: SPIRONOLACTONE 25 MG TABLET PO SCH (09:12)
[2020-12-03] MEDS: HYDROCORTISONE 2.5% TOPICAL CREAM 30 GM TUBE PR SCH (09:12)
[2020-12-03] MEDS: CYANOCOBALAMIN (VITAMIN B-12) 100 MCG TABLET PO SCH (09:13)
== END 2020-12-03 09:12 | disposition home or self-care (01) | DRG 772 ==
LOC: YASAS 10:25 → Y5N 12:10
PROVIDERS: ADMIT Allergy & Immunology; ATTEND Allergy & Immunology
PROC: HZ42ZZZ Group Counseling for Substance Abuse Treatment, Cognitive-Behavioral (ICD-10-PCS; principal; 2020-11-05)
DX: F10.20 Alcohol dependence, uncomplicated (principal); F11.20 Opioid dependence, uncomplicated; F14.20 Cocaine dependence, uncomplicated; F17.210 Nicotine dependence, cigarettes, uncomplicated; F19.282 Other psychoactive substance dependence with psychoactive substance-induced sleep disorder; F41.9 Anxiety disorder, unspecified; L03.115 Cellulitis of right lower limb; E78.00 Pure hypercholesterolemia, unspecified; I25.10 Atherosclerotic heart disease of native coronary artery without angina pectoris; I11.0 Hypertensive heart disease with heart failure; I50.9 Heart failure, unspecified; G47.00 Insomnia, unspecified; J44.9 Chronic obstructive pulmonary disease, unspecified; J45.998 Other asthma; R10.30 Lower abdominal pain, unspecified; L97.818 Non-pressure chronic ulcer of other part of right lower leg with other specified severity; L08.89 Other specified local infections of the skin and subcutaneous tissue; M41.9 Scoliosis, unspecified; Z86.79 Personal history of other diseases of the circulatory system; Z56.0 Unemployment, unspecified; Z59.0 Homelessness
CPT/HCPCS: 36415; 74018-TC-FY; 81003; 82962; 94640; C9803; U0003